=== PATIENT | female | born 1960 | race Caucasian/White ===

== ENCOUNTER 2017-11-10 15:13 | Observation (INO) | payer OTHER, SELFPAY ==
[2017-11-10] MEDS ORDERED: THIAMINE 200 MG/2 ML IM ONE (15:16)
--- NOTE | 2017-11-10 15:25 | ERPHSYRPT ---
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 They were called to a residence. Man reported he found pt on cough with altered mental status and slurred speech. She has hx of OD in past and he was concerned that was possible again. Pt does not give coherent answers. She had no response to narcan. Denies injury. Had bottle of norco filled 3 weeks ago at scene which was empty. Timing/Duration: today Allergies/Adverse Reactions: morphine Adverse Reaction (Intermediate, Verified 11/10/17 17:10) Headache iv morphine only no issues with po morphine Home Medications: Hydrocodone/APAP 5/325 [[place] 5/325 mg] 1 tab PO UD 11/06/13 [History] Venlafaxine HCl [Effexor Xr] 150 mg PO DAILY 05/17/15 [History] Aripiprazole [Abilify] 5 mg PO DAILY 08/30/16 [History] Aspirin 81 gm Chew [Baby Aspirin 81 mg Chew] 81 mg PO DAILY 08/30/16 [ History] Atorvastatin Calcium [Lipitor] 40 mg PO HS 08/30/16 [History] B-Complex with Vitamin C [B-Complex Plus Vitamin C] 1 each PO DAILY 08/30/16 [ History] Cholecalciferol (Vitamin D3) [Vitamin D3] 5,000 unit PO DAILY 08/30/16 [History] Gabapentin [Neurontin] 800 mg PO QID 08/30/16 [History] Isosorbide Mononitrate 30 mg [Imdur 30 MG] 30 mg PO DAILY 08/30/16 [History ] Meloxicam 15 mg [Meloxicam 15 MG] 15 mg PO DAILY 08/30/16 [History] Oxymorphone HCl [Oxymorphone HCl ER] 10 mg PO BID 08/30/16 [History] Omeprazole [Prilosec] 40 mg PO DAILY 08/31/16 [History] Hx Tetanus, Diphtheria Vaccination/Date Given: No Hx Influenza Vaccination/Date Given: No Hx Pneumococcal Vaccination/Date Given: No - Review of Systems Constitutional: No Fever Eyes: No Vision Changes Abdominal/Gastrointestinal: No Vomiting All Other Systems: Unable due to condition - Past Medical History Pertinent Past Medical History: Yes Neurological History: No Pertinent History ENT History: No Pertinent History Cardiac History: Other Respiratory History: COPD, Pneumonia Endocrine Medical History: No Pertinent History Musculoskeletal History: Arthritis, Degenerative Disk Disease, Fibromyalgia, Other GI Medical History: Colitis, GERD, Gallbladder Disease, Hernia, Ulcer History: No Pertinent History Psycho-Social History: Anxiety, Attention Deficit Disorder, Depression, Panic Disorder Female Reproductive Disorders: Abnormal Uterine Bleeding, Endometriosis, Fibroids Other Medical History: heart murmur, lupus - Past Surgical History Past Surgical History: Yes Neuro Surgical History: No Pertinent History Cardiac: No Pertinent History Respiratory: No Pertinent History Gastrointestinal: Cholecystectomy, Hernia Repair Genitourinary: No Pertinent History Musculoskeletal: Orthopedic Surgery Female Surgical History: Other Other Surgical History: left foot reconstructed in 2007 ,right knee arthroscopy left ovary removed, eptopic 1983, endometrial ablation 2005 - Social History Smoking Status: Current every day smoker How long have you smoked: 40 Exposure to second hand smoke: Yes Drug Use: none Patient Lives Alone: No - Nursing Vital Signs Nursing Vital Signs: Initial Vital Signs Temperature 98.3 F 11/10/17 15:14 Pulse Rate 74 11/10/17 15:14 Respiratory Rate 16 11/10/17 15:14 Blood Pressure 138/87 11/10/17 15:14 O2 Sat by Pulse Oximetry 100 11/10/17 15:14 Pain Scale Pain Intensity 0 - Physical Exam General Appearance: alert, anxiety Eye Exam: PERRL/EOMI Ears, Nose, Throat Exam: dry mucous membranes Neck Exam: normal inspection, non-tender, supple, No midline tenderness Respiratory Exam: normal breath sounds Cardiovascular Exam: regular rate/rhythm Gastrointestinal/Abdomen Exam: soft, No tenderness, No distention Back Exam: normal inspection, normal range of motion Extremity Exam: normal inspection, normal range of motion Neurologic Exam: alert, No motor deficits Skin Exam: warm, dry, No rash - Course Nursing assessment & vital signs reviewed: Yes EKG Interpreted by Me: RATE (94), Sinus Rhythm, NORMAL AXIS, prolonged QT interval (491), NORMAL ST-T - Radiology Exams cxr X-ray Interpretation: Interpreted by me (RML pneumonia) - CT Exams head CT Interpretation: Tele-radiologist Report, No/Intracranial Hemorrhag Ordered Tests: Active Orders 24 hr Category Date Time Status Accucheck STAT Care 11/10/17 15:14 Active Mortgage Processing Manager STAT Care 11/10/17 15:15 Active Cath for Specimen-Straight STAT Care 11/10/17 15:15 Active EKG-ER Only STAT Care 11/10/17 15:14 Active IV Insertion STAT Care 11/10/17 15:14 Active Oxygen-ED Only NON-REBREATHER 100% Care 11/10/17 15:40 Active CHEST 1 VIEW (PORTABLE) Stat Exams 11/10/17 15:15 Taken HEAD WITHOUT CONTRAST [CT] Stat Exams 11/10/17 15:15 Taken ACETAMINOPHEN Stat Lab 11/10/17 15:30 Completed BLOOD CULTURE Stat Lab 11/10/17 15:30 Received CBC W DIFF Stat Lab 11/10/17 15:14 Completed CMP Stat Lab 11/10/17 15:30 Completed ETHYL ALCOHOL Stat Lab 11/10/17 15:30 Completed Lactic Acid Stat Lab 11/10/17 15:19 Results MAGNESIUM Stat Lab 11/10/17 15:30 Completed PROTIME WITH INR Stat Lab 11/10/17 15:30 Completed SALICYLATE Stat Lab 11/10/17 15:30 Completed TROPONIN Q3H Lab 11/10/17 15:30 Completed TROPONIN Q3H Lab 11/10/17 18:45 Ordered TROPONIN Q3H Lab 11/10/17 21:45 Ordered TROPONIN Q3H Lab 11/11/17 00:45 Ordered TROPONIN Q3H Lab 11/11/17 04:45 Ordered UA W/ MICROSCOPIC Stat Lab 11/10/17 15:30 Completed Urine Triage Profile Stat Lab 11/10/17 15:30 Completed VENOUS BLOOD GAS Stat Lab 11/10/17 15:19 Results Medication Summary Generic Name Dose Route Start Last Admin Trade Name Freq PRN Reason Stop Dose Admin Dextrose/Lactated Ringer's 1,000 mls @ 100 mls/hr 11/10/17 15:30 11/10/17 15: 32 Dextrose 5%-Lr Iv Solution 1000 Ml IV 12/10/17 15:29 100 mls/hr .Q10H [place] Administration Discontinued Medications Generic Name Dose Route Start Last Admin Trade Name Freq PRN Reason Stop Dose Admin Thiamine HCl 100 mg 11/10/17 15:16 11/10/17 15:32 Thiamine 200 Mg/2 Ml IM 11/10/17 15:17 100 mg STAT ONE Administration Thiamine HCl Confirm 11/10/17 15:31 Thiamine 200 Mg/2 Ml Administered 11/10/17 15:32 Dose 200 mg .ROUTE .STK-MED ONE Lab/Rad Data: Laboratory Result Diagrams 11/10/17 15:14 11/10/17 15:30 Laboratory Results 11/10/17 11/10/17 11/10/17 Range/Units 15:30 15:30 15:30 WBC (4.0-10.5) K/mm3 RBC (4.1-5.4) M/mm3 Hgb (12.0-16.0) gm/dl Hct (35-47) % MCV (78-100) fl MCH (26-32) pg MCHC (32-36) g/dl RDW (11.5-14.0) % Plt Count (150-450) K/mm3 MPV (6-9.5) fl Gran % (36.0-66.0) % Lymphocytes % (24.0-44.0) % Monocytes % (0.0-12.0) % Eosinophils % (0.00-5.0) % Basophils % (0.0-0.4) % Basophils # (0-0.4) INR 0.91 (0.8-3.0) VBG pH (7.32-7.42) VBG pCO2 at Pat Temp (42-55) mm/Hg VBG pO2 at Pat Temp (25-40) mm/Hg VBG HCO3 (22-28) meq/L VBG O2 Sat ([place]) (95-100) VBG Base Excess (-2.0-2.0) VBG Hemoglobin VBG Carboxyhemoglobin (0.0-6.9) % T HGB POC Potassium (3.5-5.1) Sodium (137-145) mmol/L Potassium (3.5-5.1) mmol/L Chloride (98-107) mEq/L Carbon Dioxide (22-30) mmol/L Anion Gap (5-15) MEQ/L BUN (7-17) mg/dl Creatinine (0.52-1.04) mg/dl Estimated GFR ML/MIN Glucose (74-106) mg/dL Lactic Acid (0.4-2.0) Calcium (8.4-10.2) mg/dL Magnesium (1.6-2.3) mg/dL Total Bilirubin (0.2-1.3) mg/d? AST (14-36) U/L ALT (0-35) U/L Alkaline Phosphatase (38-126) U/L Troponin I < 0.012 (0.000-0.034) ng/ml Serum Total Protein (6.3-8.2) mg/dl Albumin (3.5-5.0) g/dl Ur Collection Type Urine Color (YELLOW) Urine Appearance (CLEAR) Urine pH (5-6) Ur Specific [place] (1.005-1.025) Urine Protein (Negative) Urine Ketones (NEGATIVE) Urine Blood (0-5) Dima/ul Urine Nitrite (NEGATIVE) Urine Bilirubin (NEGATIVE) Urine Urobilinogen (0-1) mg/dL Ur Leukocyte Esterase (NEGATIVE) Urine Microscopic RBC (0-2) /HPF Urine Bacteria (NEGATIVE) /HPF Urine Culture Reflexed (NO) Urine Glucose (NEGATIVE) mg/dL Salicylates (2-20) mg/dL Urine Opiates Level NEGATIVE (NEGATIVE) Ur Methadone NEGATIVE (NEGATIVE) Acetaminophen (10-30) ug/ml Urine Barbiturates NEGATIVE (NEGATIVE) Ur Phencyclidine (PCP) NEGATIVE (NEGATIVE) Urine Amphetamine NEGATIVE (NEGATIVE) U Benzodiazepine Level NEGATIVE (NEGATIVE) Urine Cocaine NEGATIVE (NEGATIVE) Urine Marijuana (THC) NEGATIVE (NEGATIVE) Ethyl Alcohol (0-9) MG/DL Specimen Received 11/10/17 11/10/17 11/10/17 Range/Units 15:30 15:30 15:19 WBC (4.0-10.5) K/mm3 RBC (4.1-5.4) M/mm3 Hgb (12.0-16.0) gm/dl Hct (35-47) % MCV (78-100) fl MCH (26-32) pg MCHC (32-36) g/dl RDW (11.5-14.0) % Plt Count (150-450) K/mm3 MPV (6-9.5) fl Gran % (36.0-66.0) % Lymphocytes % (24.0-44.0) % Monocytes % (0.0-12.0) % Eosinophils % (0.00-5.0) % Basophils % (0.0-0.4) % Basophils # (0-0.4) INR (0.8-3.0) VBG pH 7.42 (7.32-7.42) VBG pCO2 at Pat Temp 41 L (42-55) mm/Hg VBG pO2 at Pat Temp 30 (25-40) mm/Hg VBG HCO3 26.6 (22-28) meq/L VBG O2 Sat ([place]) 71.7 L (95-100) VBG Base Excess 1.9 (-2.0-2.0) VBG Hemoglobin 16.9 VBG Carboxyhemoglobin 17.7 H* (0.0-6.9) % T HGB POC Potassium 4.2 (3.5-5.1) Sodium 140 (137-145) mmol/L Potassium 4.2 (3.5-5.1) mmol/L Chloride 103 (98-107) mEq/L Carbon Dioxide 23 (22-30) mmol/L Anion Gap 18.6 H (5-15) MEQ/L BUN 18 H (7-17) mg/dl Creatinine 0.78 (0.52-1.04) mg/dl Estimated GFR > 60 ML/MIN Glucose 90 (74-106) mg/dL Lactic Acid 2.5 H (0.4-2.0) Calcium 9.7 (8.4-10.2) mg/dL Magnesium 2.0 (1.6-2.3) mg/dL Total Bilirubin 0.30 (0.2-1.3) mg/d? AST 25 (14-36) U/L ALT 23 (0-35) U/L Alkaline Phosphatase 104 (38-126) U/L Troponin I (0.000-0.034) ng/ml Serum Total Protein 7.6 (6.3-8.2) mg/dl Albumin 4.5 (3.5-5.0) g/dl Ur Collection Type CATH Urine Color YELLOW (YELLOW) Urine Appearance CLEAR (CLEAR) Urine pH 5.0 (5-6) Ur Specific [place] 1.005 (1.005-1.025) Urine Protein NEGATIVE (Negative) Urine Ketones NEGATIVE (NEGATIVE) Urine Blood 5-10 (0-5) Dima/ul Urine Nitrite NEGATIVE (NEGATIVE) Urine Bilirubin NEGATIVE (NEGATIVE) Urine Urobilinogen NORMAL (0-1) mg/dL Ur Leukocyte Esterase NEGATIVE (NEGATIVE) Urine Microscopic RBC 0-2 (0-2) /HPF Urine Bacteria RARE (NEGATIVE) /HPF Urine Culture Reflexed NO (NO) Urine Glucose NEGATIVE (NEGATIVE) mg/dL Salicylates < 1.0 L (2-20) mg/dL Urine Opiates Level (NEGATIVE) Ur Methadone (NEGATIVE) Acetaminophen < 10 L (10-30) ug/ml Urine Barbiturates (NEGATIVE) Ur Phencyclidine (PCP) (NEGATIVE) Urine Amphetamine (NEGATIVE) U Benzodiazepine Level (NEGATIVE) Urine Cocaine (NEGATIVE) Urine Marijuana (THC) (NEGATIVE) Ethyl Alcohol 110 H (0-9) MG/DL Specimen Received 11/10/17 1530 11/10/17 Range/Units 15:14 WBC 9.4 (4.0-10.5) K/mm3 RBC 5.28 (4.1-5.4) M/mm3 Hgb 16.5 H (12.0-16.0) gm/dl Hct 48.4 H (35-47) % MCV 91.7 (78-100) fl MCH 31.2 (26-32) pg MCHC 34.1 (32-36) g/dl RDW 14.0 (11.5-14.0) % Plt Count 280 (150-450) K/mm3 MPV 9.9 H (6-9.5) fl Gran % 49.2 (36.0-66.0) % Lymphocytes % 38.6 (24.0-44.0) % Monocytes % 10.8 (0.0-12.0) % Eosinophils % 1.0 (0.00-5.0) % Basophils % 0.4 (0.0-0.4) % Basophils # 0.04 (0-0.4) INR (0.8-3.0) VBG pH (7.32-7.42) VBG pCO2 at Pat Temp (42-55) mm/Hg VBG pO2 at Pat Temp (25-40) mm/Hg VBG HCO3 (22-28) meq/L VBG O2 Sat ([place]) (95-100) VBG Base Excess (-2.0-2.0) VBG Hemoglobin VBG Carboxyhemoglobin (0.0-6.9) % T HGB POC Potassium (3.5-5.1) Sodium (137-145) mmol/L Potassium (3.5-5.1) mmol/L Chloride (98-107) mEq/L Carbon Dioxide (22-30) mmol/L Anion Gap (5-15) MEQ/L BUN (7-17) mg/dl Creatinine (0.52-1.04) mg/dl Estimated GFR ML/MIN Glucose (74-106) mg/dL Lactic Acid (0.4-2.0) Calcium (8.4-10.2) mg/dL Magnesium (1.6-2.3) mg/dL Total Bilirubin (0.2-1.3) mg/d? AST (14-36) U/L ALT (0-35) U/L Alkaline Phosphatase (38-126) U/L Troponin I (0.000-0.034) ng/ml Serum Total Protein (6.3-8.2) mg/dl Albumin (3.5-5.0) g/dl Ur Collection Type Urine Color (YELLOW) Urine Appearance (CLEAR) Urine pH (5-6) Ur Specific [place] (1.005-1.025) Urine Protein (Negative) Urine Ketones (NEGATIVE) Urine Blood (0-5) Dima/ul Urine Nitrite (NEGATIVE) Urine Bilirubin (NEGATIVE) Urine Urobilinogen (0-1) mg/dL Ur Leukocyte Esterase (NEGATIVE) Urine Microscopic RBC (0-2) /HPF Urine Bacteria (NEGATIVE) /HPF Urine Culture Reflexed (NO) Urine Glucose (NEGATIVE) mg/dL Salicylates (2-20) mg/dL Urine Opiates Level (NEGATIVE) Ur Methadone (NEGATIVE) Acetaminophen (10-30) ug/ml Urine Barbiturates (NEGATIVE) Ur Phencyclidine (PCP) (NEGATIVE) Urine Amphetamine (NEGATIVE) U Benzodiazepine Level (NEGATIVE) Urine Cocaine (NEGATIVE) Urine Marijuana (THC) (NEGATIVE) Ethyl Alcohol (0-9) MG/DL Specimen Received - Progress Progress Note: 11/10/17 15:40 CO elevated. She smokes 2 ppd. Will give NRB O2. 11/10/17 17:18 Pt still some confused. Will send blood cultures and unasyn for aspiration pneumonia. 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 He was in the other room and she laid on couch. He checked on her and she had slurred speech so he called EMS about 30 minutes later. Discussed with : Sim (for Reuben) Will see patient in: hospital (observation) Counseled pt/family regarding: lab results, diagnosis, need for follow-up, rad results - Departure Time of Disposition: 17:20 Departure Disposition: Observation (ICU) Clinical Impression: Overdose, RML pneumonia, elevated carbon monoxide, Altered mental status Condition: Fair Critical Care Time: No Referrals: RICO ELLIS [Primary Care Provider] -
[2017-11-10] MEDS ORDERED: Dextrose 5%-Lr IV Solution 1000 ML 1,000 ML IV SCH ×2 (15:30→18:20)
[2017-11-10] MEDS ORDERED: THIAMINE 200 MG/2 ML ONE (15:31)
[2017-11-10] MEDS ORDERED: Dextrose 5%-Lr IV Solution 1000 ML 1,000 ML IV ONE (15:31)
[2017-11-10 15:33] LABS: BASOPHIL % 0.4 % (0.0-0.4); Basophil (Absolute #) 0.04 (0-0.4); Eosinophil (Absolute #) 0.09 (0-0.5); Granulocyte Absolute (ANC) 4.63 (1.4-6.9); Granulocytes % 49.2 % (36.0-66.0); Hematocrit 48.4 % (35-47); Hemoglobin 16.5 gm/dl (12.0-16.0); Lymphocyte (Absolute #) 3.64 (1.0-4.6); Lymphocytes % 38.6 % (24.0-44.0); Mean Cell Volume 91.7 fl (78-100); Mean Corpuscular Hgb Concent. 34.1 g/dl (32-36); Mean Platelet Volume 9.9 fl (6-9.5); Monocyte (Absolute #) 1.02 (0.0-1.3); Monocytes % 10.8 % (0.0-12.0); Platelet Count 280 K/mm3 (150-450); Red Blood Count 5.28 M/mm3 (4.1-5.4); White Blood Count 9.4 K/mm3 (4.0-10.5)
[2017-11-10 15:35] LABS: Lactic Acid 2.5 (0.4-2.0); VBG BASE EXCESS 1.9 (-2.0-2.0); VBG HCO3- 26.6 meq/L (22-28); VBG HEMOGLOBIN 16.9; VBG O2 SATURATION 71.7 (95-100); VBG PCO2 41 mm/Hg (42-55); VBG PO2 30 mm/Hg (25-40); VBG POTASSIUM 4.2 (3.5-5.1); VBG pH 7.42 (7.32-7.42)
[2017-11-10 15:35] LABS: Mean Corpuscular Hemoglobin 31.2 pg (26-32)
[2017-11-10 15:36] LABS: VBG CARBOXYHEMOGLOBIN 17.7 % T HGB (0.0-6.9)
[2017-11-10 15:46] LABS: Appearance CLEAR (CLEAR); Bacteria RARE /HPF (NEGATIVE); Bilirubin NEGATIVE (NEGATIVE); Glucose NEGATIVE (NEGATIVE); Ketones NEGATIVE (NEGATIVE); Leukocyte Esterase NEGATIVE (NEGATIVE); Nitrite NEGATIVE (NEGATIVE); Protein,Urine Dip NEGATIVE (Negative); Specific Gravity 1.005 (1.005-1.025); Urobilinogen NORMAL mg/dL (0-1)
[2017-11-10 15:51] LABS: Amphetamine,Urine NEGATIVE (NEGATIVE); Barbiturate,Urine NEGATIVE (NEGATIVE); Benzodiazepine,Urine NEGATIVE (NEGATIVE); Cocaine,Urine NEGATIVE (NEGATIVE); Methadone,Urine NEGATIVE (NEGATIVE); Opiate,Urine NEGATIVE (NEGATIVE); PCP,Urine NEGATIVE (NEGATIVE); THC,Urine NEGATIVE (NEGATIVE)
[2017-11-10 15:53] LABS: INR 0.91 (0.8-3.0)
[2017-11-10 15:58] LABS: ALBUMIN 4.5 g/dl (3.5-5.0); ALKALINE PHOSPHATASE 104 U/L (38-126); ANION GAP 18.6 MEQ/L (5-15); BLOOD UREA NITROGEN 18 mg/dl (7-17); CHLORIDE 103 mEq/L (98-107); Calcium 9.7 mg/dL (8.4-10.2); Carbon Dioxide 23 mmol/L (22-30); Creatinine 1 0.78 mg/dl (0.52-1.04); ETHYL ALCOHOL 110 MG/DL (0-9); Glucose 90 mg/dL (74-106); Potassium 4.2 mmol/L (3.5-5.1); SGOT/AST 25 U/L (14-36); SGPT/ALT 23 U/L (0-35); SODIUM 140 mmol/L (137-145); Total Protein 7.6 mg/dl (6.3-8.2)
[2017-11-10 16:01] LABS: ACETAMINOPHEN < 10 ug/ml (10-30); SALICYLATE < 1.0 mg/dL (2-20)
[2017-11-10] MEDS ORDERED: Unasyn 3GM / NaCl 100ML 3 GM/100 ML IVPB IV STA (17:17)
[2017-11-10] MEDS ORDERED: Unasyn 3GM / NaCl 100ML 3 GM/100 ML IVPB ONE (17:27)
[2017-11-10] MEDS ORDERED: Adacel Vial IM ONE (17:49)
[2017-11-10 19:01] LABS: VBG CARBOXYHEMOGLOBIN 8.5 % T HGB (0.0-6.9); VBG HCO3- 27.1 meq/L (22-28); VBG HEMOGLOBIN 16.9; VBG O2 SATURATION 90.5 (95-100); VBG POTASSIUM 4.2 (3.5-5.1); VBG pH 7.45 (7.32-7.42)
[2017-11-10 19:03] LABS: Lactic Acid 1.9 (0.4-2.0)
--- NOTE | 2017-11-10 19:10 | XRAY ---
Indication: Altered mental status. Multiple contiguous axial images obtained through the head without contrast. Comparison: April 03, 2008. Several images slightly degraded by motion artifact. Ventriculosulcal pattern appears symmetric. No acute intracranial hemorrhage, abnormal extra-axial fluid collection, or mass effect. Fourth ventricle is midline without hydrocephalus. Jon-white matter differentiation preserved. Bony calvarium intact. Visualized paranasal sinuses and mastoid air cells are clear. Impression: Mild motion artifact. No gross acute intracranial abnormalities. Comment: Preliminary interpretation was made by [facility]. No discrepancy. CTDI 60.26
--- NOTE | 2017-11-10 19:14 | XRAY ---
Indication: Altered mental status. Comparison: August 30, 2016. Portable chest again demonstrates right mid to lower lung infiltrate versus atelectasis. Remaining lungs clear. Heart is not enlarged for AP portable technique. Again old left clavicle fracture. Impression: Right mid to lower lung infiltrate/atelectasis. Correlate clinically.
[2017-11-10] MEDS: Unasyn 1.5GM / NaCl 100ML 1.5 GM/100 ML IVPB IV SCH (19:16)
[2017-11-10 19:37] LABS: TROPONIN < 0.012 ng/ml (0.000-0.034)
[2017-11-10] MEDS ORDERED: Nicoderm CQ 21 MG TOP SCH (20:00)
[2017-11-10 20:29] LABS: ACETAMINOPHEN < 10 ug/ml (10-30)
[2017-11-10] MEDS ORDERED: Unasyn 1.5GM Vial ONE (23:59)
[2017-11-11] MEDS: Unasyn 1.5GM / NaCl 100ML 1.5 GM/100 ML IVPB IV SCH ×2 (00:06→05:55)
[2017-11-11] MEDS ORDERED: Sodium Chloride 0.9% 100 ML IVPB 100 ML IV ONE (05:53)
[2017-11-11] MEDS ORDERED: Unasyn 1.5GM Vial ONE (05:53)
[2017-11-11 06:04] LABS: Hematocrit 47.3 % (35-47); Hemoglobin 15.6 gm/dl (12.0-16.0); Mean Cell Volume 93.7 fl (78-100); Mean Corpuscular Hemoglobin 30.9 pg (26-32); Mean Platelet Volume 10.4 fl (6-9.5); Platelet Count 278 K/mm3 (150-450); Red Blood Count 5.05 M/mm3 (4.1-5.4); Red Cell Distribution Width 14.4 % (11.5-14.0); White Blood Count 9.5 K/mm3 (4.0-10.5)
[2017-11-11 06:07] VITALS: BP 165/95
[2017-11-11 06:29] LABS: ANION GAP 13.3 MEQ/L (5-15); BLOOD UREA NITROGEN 18 mg/dl (7-17); CHLORIDE 103 mEq/L (98-107); Calcium 9.8 mg/dL (8.4-10.2); Carbon Dioxide 29 mmol/L (22-30); Creatinine 1 0.94 mg/dl (0.52-1.04); Glucose 93 mg/dL (74-106); Potassium 4.1 mmol/L (3.5-5.1); SODIUM 142 mmol/L (137-145)
--- NOTE | 2017-11-11 07:56 | PCM.SSS ---
History of Present Illness - Chief Complaint Chief Complaint: OD, AMS, rml pneumonia History of Present Illness: 57 yo female patient of Dr Ellis came to ER with altered mental status. Found to have acute alcohol intoxication, drug triage was negative in spite of her claiming to be on norco from Dr Guzman, states her morphine rx was "lost" 3 weeks ago. smokes 1 1/2 to 2ppd and had elevated carboxyhemoglobin on ABG. No cough or fever, has no complaints today. - Review of Systems Constitutional: No Fever, No Chills Respiratory: No Cough, No Short Of Breath Cardiac: No Chest Pain, No Edema, No Syncope Abdominal/Gastrointestinal: No Abdominal Pain, No Nausea, No Vomiting, No Diarrhea Skin: No Rash All Other Systems: Reviewed and Negative Medications & Allergies Home Medications: Home Medication List Venlafaxine HCl [Effexor Xr] 150 mg PO DAILY 05/17/15 [History Confirmed ] Aspirin 81 gm Chew [Baby Aspirin 81 mg Chew] 81 mg PO DAILY 08/30/16 [ History Confirmed 11/10/17] Atorvastatin Calcium [Lipitor] 20 mg PO HS 08/30/16 [History Confirmed 11/11/17] B-Complex with Vitamin C [B-Complex Plus Vitamin C] 1 each PO DAILY 08/30/16 [ History Confirmed 11/10/17] Cholecalciferol (Vitamin D3) [Vitamin D3] 5,000 unit PO DAILY 08/30/16 [History Confirmed 11/10/17] Meloxicam 15 mg [Meloxicam 15 MG] 15 mg PO DAILY 08/30/16 [History Confirmed 06/20] Omeprazole [Prilosec] 40 mg PO DAILY 08/31/16 [History Confirmed 11/10/17] Amoxicillin/Potassium Clav [Augmentin 500-125 Tablet] 1 each PO TID #21 tablet 11/11/17 [Rx] Gabapentin 800 mg PO QID 11/11/17 [History Confirmed 11/11/17] Hydrocodone/Acetaminophen [Hydrocodone-Acetamin 10-325 mg] 1 tab PO BID PRN 07/21 [History Confirmed 11/11/17] Methocarbamol 500 mg [Robaxin 500 MG] 500 mg PO BID 11/11/17 [History Confirmed 11/11/17] Morphine Sulfate Cr 15 mg [Ms Contin 15 MG] 15 mg PO BID 11/11/17 [ History Confirmed 11/11/17] Morphine Sulfate Cr 15 mg [Ms Contin 15 MG] 15 mg PO DAILY 11/11/17 [ History Confirmed 11/11/17] Allergies/Adverse Reactions: Allergies Allergy/AdvReac Type Severity Reaction Status Date / Time morphine AdvReac Intermediate Headache Verified 11/10/17 17:10 - Past Medical History Past Medical History: Yes Neurological History: No Pertinent History ENT History: No Pertinent History Cardiac History: Other Respiratory History: COPD, Pneumonia Endocrine Medical History: No Pertinent History Musculoskelatal History: Arthritis, Degenerative Disk Disease, Fibromyalgia, Other GI Medical History: Colitis, GERD, Gallbladder Disease, Hernia, Ulcer History: No Pertinent History Pyscho-Social History: Anxiety, Attention Deficit Disorder, Depression, Panic Disorder Reproductive Disorders: Abnormal Uterine Bleeding, Endometriosis, Fibroids Comment: heart murmur, lupus - Female History Are you now?: No - Past Surgical History Past Surgical History: Yes Neuro Surgical History: No Pertinent History Cardiac History: No Pertinent History Respiratory Surgery: No Pertinent History GI Surgical History: Cholecystectomy, Hernia Repair Genitourinary Surgical Hx: No Pertinent History Musculskeletal Surgical Hx: Orthopedic Surgery Female Surgical History: Other Other Surgical History: left foot reconstructed in 2007 ,right knee arthroscopy left ovary removed, eptopic 1983, endometrial ablation 2005 - Social History Smoking Status: Current every day smoker How long have you smoked: 40 Exposure to second hand smoke: Yes Alcohol: Weekly Drug Use: none - Physical Exam Vital Signs: Vital Signs - 24 hr Temp Pulse Resp BP Pulse Ox 11/11/17 06:00 99.0 F 64 17 165/95 99 11/11/17 04:00 98.6 F 63 23 139/80 99 11/11/17 01:00 98.4 F 63 17 152/82 97 11/11/17 00:01 61 11/10/17 23:07 146/79 11/10/17 22:00 98.0 F 68 13 160/89 99 11/10/17 20:30 74 20 95 11/10/17 19:58 98.2 F 72 23 144/92 93 L 11/10/17 18:27 98 F 87 20 130/94 98 11/10/17 18:20 98 03/10/18 16:50 90 20 132/96 98 11/10/17 16:16 96 H 18 143/87 95 11/10/17 15:14 98.3 F 74 16 138/87 100 Oxygen-Last 24 hours O2 Percentage 100% O2 Percentage 100% O2 Percentage 100% O2 Percentage 100% O2 Percentage 100% General Appearance: no apparent distress, alert Neurologic Exam: alert, oriented x 3, cooperative, normal mood/affect, nml cerebellar function, nml station & gait, sensation nml, No motor deficits Eye Exam: PERRL/EOMI, eyes nml inspection Respiratory Exam: normal breath sounds, lungs clear, No respiratory distress Cardiovascular Exam: regular rate/rhythm, normal heart sounds, normal peripheral pulses Gastrointestinal/Abdomen Exam: soft, normal bowel sounds, No tenderness, No mass Extremity Exam: normal inspection, normal range of motion, pelvis stable Skin Exam: normal color, warm, dry, No rash Results - Labs Lab/Micro Results: Lab Results-Last 24 Hours 11/10/17 11/10/17 11/10/17 Range/Units 18:54 18:54 18:58 WBC (4.0-10.5) K/mm3 RBC (4.1-5.4) M/mm3 Hgb (12.0-16.0) gm/dl Hct (35-47) % MCV (78-100) fl MCH (26-32) pg MCHC (32-36) g/dl RDW (11.5-14.0) % Plt Count (150-450) K/mm3 MPV (6-9.5) fl VBG pH 7.45 H (7.32-7.42) VBG pCO2 at Pat Temp 39 L (42-55) mm/Hg VBG pO2 at Pat Temp 50 H (25-40) mm/Hg VBG HCO3 27.1 (22-28) meq/L VBG O2 Sat ([place]) 90.5 L (95-100) VBG Base Excess 3.0 H (-2.0-2.0) VBG Hemoglobin 16.9 VBG Carboxyhemoglobin 8.5 H* (0.0-6.9) % T HGB POC Potassium 4.2 (3.5-5.1) Sodium (137-145) mmol/L Potassium (3.5-5.1) mmol/L Chloride (98-107) mEq/L Carbon Dioxide (22-30) mmol/L Anion Gap (5-15) MEQ/L BUN (7-17) mg/dl Creatinine (0.52-1.04) mg/dl Estimated GFR ML/MIN Glucose (74-106) mg/dL Lactic Acid 1.9 (0.4-2.0) Calcium (8.4-10.2) mg/dL Troponin I < 0.012 (0.000-0.034) ng/ml Prealbumin (17.6-36.0) mg/dL Acetaminophen < 10 L (10-30) ug/ml 11/10/17 11/10/17 11/10/17 Range/Units 19:06 21:45 21:55 WBC (4.0-10.5) K/mm3 RBC (4.1-5.4) M/mm3 Hgb (12.0-16.0) gm/dl Hct (35-47) % MCV (78-100) fl MCH (26-32) pg MCHC (32-36) g/dl RDW (11.5-14.0) % Plt Count (150-450) K/mm3 MPV (6-9.5) fl VBG pH (7.32-7.42) VBG pCO2 at Pat Temp (42-55) mm/Hg VBG pO2 at Pat Temp (25-40) mm/Hg VBG HCO3 (22-28) meq/L VBG O2 Sat ([place]) (95-100) VBG Base Excess (-2.0-2.0) VBG Hemoglobin VBG Carboxyhemoglobin (0.0-6.9) % T HGB POC Potassium (3.5-5.1) Sodium (137-145) mmol/L Potassium (3.5-5.1) mmol/L Chloride (98-107) mEq/L Carbon Dioxide (22-30) mmol/L Anion Gap (5-15) MEQ/L BUN (7-17) mg/dl Creatinine (0.52-1.04) mg/dl Estimated GFR ML/MIN Glucose (74-106) mg/dL Lactic Acid 1.0 (0.4-2.0) Calcium (8.4-10.2) mg/dL Troponin I < 0.012 (0.000-0.034) ng/ml Prealbumin 29.73 (17.6-36.0) mg/dL Acetaminophen (10-30) ug/ml 11/11/17 11/11/17 11/11/17 Range/Units 00:58 05:59 05:59 WBC 9.5 (4.0-10.5) K/mm3 RBC 5.05 (4.1-5.4) M/mm3 Hgb 15.6 (12.0-16.0) gm/dl Hct 47.3 H (35-47) % MCV 93.7 (78-100) fl MCH 30.9 (26-32) pg MCHC 33.0 (32-36) g/dl RDW 14.4 H (11.5-14.0) % Plt Count 278 (150-450) K/mm3 MPV 10.4 H (6-9.5) fl VBG pH (7.32-7.42) VBG pCO2 at Pat Temp (42-55) mm/Hg VBG pO2 at Pat Temp (25-40) mm/Hg VBG HCO3 (22-28) meq/L VBG O2 Sat ([place]) (95-100) VBG Base Excess (-2.0-2.0) VBG Hemoglobin VBG Carboxyhemoglobin (0.0-6.9) % T HGB POC Potassium (3.5-5.1) Sodium (137-145) mmol/L Potassium (3.5-5.1) mmol/L Chloride (98-107) mEq/L Carbon Dioxide (22-30) mmol/L Anion Gap (5-15) MEQ/L BUN (7-17) mg/dl Creatinine (0.52-1.04) mg/dl Estimated GFR ML/MIN Glucose (74-106) mg/dL Lactic Acid (0.4-2.0) Calcium (8.4-10.2) mg/dL Troponin I < 0.012 < 0.012 (0.000-0.034) ng/ml Prealbumin (17.6-36.0) mg/dL Acetaminophen (10-30) ug/ml 11/11/17 Range/Units 05:59 WBC (4.0-10.5) K/mm3 RBC (4.1-5.4) M/mm3 Hgb (12.0-16.0) gm/dl Hct (35-47) % MCV (78-100) fl MCH (26-32) pg MCHC (32-36) g/dl RDW (11.5-14.0) % Plt Count (150-450) K/mm3 MPV (6-9.5) fl VBG pH (7.32-7.42) VBG pCO2 at Pat Temp (42-55) mm/Hg VBG pO2 at Pat Temp (25-40) mm/Hg VBG HCO3 (22-28) meq/L VBG O2 Sat ([place]) (95-100) VBG Base Excess (-2.0-2.0) VBG Hemoglobin VBG Carboxyhemoglobin (0.0-6.9) % T HGB POC Potassium (3.5-5.1) Sodium 142 (137-145) mmol/L Potassium 4.1 (3.5-5.1) mmol/L Chloride 103 (98-107) mEq/L Carbon Dioxide 29 (22-30) mmol/L Anion Gap 13.3 (5-15) MEQ/L BUN 18 H (7-17) mg/dl Creatinine 0.94 (0.52-1.04) mg/dl Estimated GFR > 60 ML/MIN Glucose 93 (74-106) mg/dL Lactic Acid (0.4-2.0) Calcium 9.8 (8.4-10.2) mg/dL Troponin I (0.000-0.034) ng/ml Prealbumin (17.6-36.0) mg/dL Acetaminophen (10-30) ug/ml Assessment/Plan (1) Acute alcohol intoxication Current Visit: Yes Status: Acute Assessment & Plan: resolved at this time, no intent to harm herself Code(s): F10.929 - ALCOHOL USE, UNSPECIFIED WITH INTOXICATION, UNSPECIFIED (2) Altered mental status Current Visit: Yes Status: Acute Code(s): R41.82 - ALTERED MENTAL STATUS, UNSPECIFIED (3) RML pneumonia Current Visit: Yes Status: Acute Assessment & Plan: home on po augmentin, might need further workup on followup due to significant tobacco use history. Code(s): J18.1 - LOBAR PNEUMONIA, UNSPECIFIED ORGANISM Hospital Summary - Vitals & Intake/Output Vital Signs: Vital Signs Temperature 99.0 F 11/11/17 06:00 Pulse Rate 64 11/11/17 06:00 Respiratory Rate 17 11/11/17 06:00 Blood Pressure 165/95 11/11/17 06:00 O2 Sat by Pulse Oximetry 99 11/11/17 06:00 Oxygen-Last Documented O2 Percentage 100% Intake & Output: Intake & Output 11/08/17 11/09/17 11/10/17 11/11/17 11:59 11:59 11:59 12:59 Intake Total 1131 Output Total 1650 Balance -519 Weight 83 kg - Lab Result Diagrams: 11/11/17 05:59 11/11/17 05:59 Lab Results-Last 24 Hrs: Lab Results-Last 24 Hours 11/10/17 11/10/17 11/10/17 Range/Units 18:54 18:54 18:58 WBC (4.0-10.5) K/mm3 RBC (4.1-5.4) M/mm3 Hgb (12.0-16.0) gm/dl Hct (35-47) % MCV (78-100) fl MCH (26-32) pg MCHC (32-36) g/dl RDW (11.5-14.0) % Plt Count (150-450) K/mm3 MPV (6-9.5) fl VBG pH 7.45 H (7.32-7.42) VBG pCO2 at Pat Temp 39 L (42-55) mm/Hg VBG pO2 at Pat Temp 50 H (25-40) mm/Hg VBG HCO3 27.1 (22-28) meq/L VBG O2 Sat ([place]) 90.5 L (95-100) VBG Base Excess 3.0 H (-2.0-2.0) VBG Hemoglobin 16.9 VBG Carboxyhemoglobin 8.5 H* (0.0-6.9) % T HGB POC Potassium 4.2 (3.5-5.1) Sodium (137-145) mmol/L Potassium (3.5-5.1) mmol/L Chloride (98-107) mEq/L Carbon Dioxide (22-30) mmol/L Anion Gap (5-15) MEQ/L BUN (7-17) mg/dl Creatinine (0.52-1.04) mg/dl Estimated GFR ML/MIN Glucose (74-106) mg/dL Lactic Acid 1.9 (0.4-2.0) Calcium (8.4-10.2) mg/dL Troponin I < 0.012 (0.000-0.034) ng/ml Prealbumin (17.6-36.0) mg/dL Acetaminophen < 10 L (10-30) ug/ml 11/10/17 11/10/17 11/10/17 Range/Units 19:06 21:45 21:55 WBC (4.0-10.5) K/mm3 RBC (4.1-5.4) M/mm3 Hgb (12.0-16.0) gm/dl Hct (35-47) % MCV (78-100) fl MCH (26-32) pg MCHC (32-36) g/dl RDW (11.5-14.0) % Plt Count (150-450) K/mm3 MPV (6-9.5) fl VBG pH (7.32-7.42) VBG pCO2 at Pat Temp (42-55) mm/Hg VBG pO2 at Pat Temp (25-40) mm/Hg VBG HCO3 (22-28) meq/L VBG O2 Sat ([place]) (95-100) VBG Base Excess (-2.0-2.0) VBG Hemoglobin VBG Carboxyhemoglobin (0.0-6.9) % T HGB POC Potassium (3.5-5.1) Sodium (137-145) mmol/L Potassium (3.5-5.1) mmol/L Chloride (98-107) mEq/L Carbon Dioxide (22-30) mmol/L Anion Gap (5-15) MEQ/L BUN (7-17) mg/dl Creatinine (0.52-1.04) mg/dl Estimated GFR ML/MIN Glucose (74-106) mg/dL Lactic Acid 1.0 (0.4-2.0) Calcium (8.4-10.2) mg/dL Troponin I < 0.012 (0.000-0.034) ng/ml Prealbumin 29.73 (17.6-36.0) mg/dL Acetaminophen (10-30) ug/ml 11/11/17 11/11/17 11/11/17 Range/Units 00:58 05:59 05:59 WBC 9.5 (4.0-10.5) K/mm3 RBC 5.05 (4.1-5.4) M/mm3 Hgb 15.6 (12.0-16.0) gm/dl Hct 47.3 H (35-47) % MCV 93.7 (78-100) fl MCH 30.9 (26-32) pg MCHC 33.0 (32-36) g/dl RDW 14.4 H (11.5-14.0) % Plt Count 278 (150-450) K/mm3 MPV 10.4 H (6-9.5) fl VBG pH (7.32-7.42) VBG pCO2 at Pat Temp (42-55) mm/Hg VBG pO2 at Pat Temp (25-40) mm/Hg VBG HCO3 (22-28) meq/L VBG O2 Sat ([place]) (95-100) VBG Base Excess (-2.0-2.0) VBG Hemoglobin VBG Carboxyhemoglobin (0.0-6.9) % T HGB POC Potassium (3.5-5.1) Sodium (137-145) mmol/L Potassium (3.5-5.1) mmol/L Chloride (98-107) mEq/L Carbon Dioxide (22-30) mmol/L Anion Gap (5-15) MEQ/L BUN (7-17) mg/dl Creatinine (0.52-1.04) mg/dl Estimated GFR ML/MIN Glucose (74-106) mg/dL Lactic Acid (0.4-2.0) Calcium (8.4-10.2) mg/dL Troponin I < 0.012 < 0.012 (0.000-0.034) ng/ml Prealbumin (17.6-36.0) mg/dL Acetaminophen (10-30) ug/ml 11/11/17 Range/Units 05:59 WBC (4.0-10.5) K/mm3 RBC (4.1-5.4) M/mm3 Hgb (12.0-16.0) gm/dl Hct (35-47) % MCV (78-100) fl MCH (26-32) pg MCHC (32-36) g/dl RDW (11.5-14.0) % Plt Count (150-450) K/mm3 MPV (6-9.5) fl VBG pH (7.32-7.42) VBG pCO2 at Pat Temp (42-55) mm/Hg VBG pO2 at Pat Temp (25-40) mm/Hg VBG HCO3 (22-28) meq/L VBG O2 Sat ([place]) (95-100) VBG Base Excess (-2.0-2.0) VBG Hemoglobin VBG Carboxyhemoglobin (0.0-6.9) % T HGB POC Potassium (3.5-5.1) Sodium 142 (137-145) mmol/L Potassium 4.1 (3.5-5.1) mmol/L Chloride 103 (98-107) mEq/L Carbon Dioxide 29 (22-30) mmol/L Anion Gap 13.3 (5-15) MEQ/L BUN 18 H (7-17) mg/dl Creatinine 0.94 (0.52-1.04) mg/dl Estimated GFR > 60 ML/MIN Glucose 93 (74-106) mg/dL Lactic Acid (0.4-2.0) Calcium 9.8 (8.4-10.2) mg/dL Troponin I (0.000-0.034) ng/ml Prealbumin (17.6-36.0) mg/dL Acetaminophen (10-30) ug/ml - Procedures and Test Procedures and Tests throughout Hospitalization: Therapy Orders & Screens 11/10/17 18:35 Smoking Cessation Education ONCE Comment: Diagnosis: OD, AMS, rml pneumonia Smoking Status: Current every day smoker How long have you smoked: 40 Have you smoked in the past 12 months: Yes Approximately how many cigarettes per day: 10 Do you dip or chew tobacco: No - Discharge Disposition: Home, Self-Care Condition: Fair Prescriptions: New Amoxicillin/Potassium Clav [Augmentin 500-125 Tablet] 1 each PO TID #21 tablet Continue Venlafaxine HCl [Effexor Xr] 150 mg PO DAILY Meloxicam 15 mg [Meloxicam 15 MG] 15 mg PO DAILY Aspirin 81 gm Chew [Baby Aspirin 81 mg Chew] 81 mg PO DAILY Atorvastatin Calcium [Lipitor] 20 mg PO HS Cholecalciferol (Vitamin D3) [Vitamin D3] 5,000 unit PO DAILY B-Complex with Vitamin C [B-Complex Plus Vitamin C] 1 each PO DAILY Omeprazole [Prilosec] 40 mg PO DAILY Morphine Sulfate Cr 15 mg [Ms Contin 15 MG] 15 mg PO BID Hydrocodone/Acetaminophen [Hydrocodone-Acetamin 10-325 mg] 1 tab PO BID PRN PRN Reason: Pain Methocarbamol 500 mg [Robaxin 500 MG] 500 mg PO BID Morphine Sulfate Cr 15 mg [Ms Contin 15 MG] 15 mg PO DAILY Gabapentin 800 mg PO QID Follow up with: RICO ELLIS [Primary Care Provider] - 1 Week
[2017-11-11 07:58] VITALS: PULSE 67; O2SAT 92
== END 2017-11-11 09:20 | disposition home or self-care (01) ==
LOC: ED 15:13 → ICU 18:14
PROVIDERS: ADMIT Internal Medicine; ATTEND Internal Medicine
DX: F10.929 Alcohol use, unspecified with intoxication, unspecified (principal); R41.82 Altered mental status, unspecified; J18.1 Lobar pneumonia, unspecified organism; F17.200 Nicotine dependence, unspecified, uncomplicated; Z79.899 Other long term (current) drug therapy
CPT/HCPCS: 36000; 36415; 70450; 71045; 80048; 80053; 80307; 81000; 82805; 82962; 83605; 83735; 84134; 84484; 85025; 85027; 85610; 87040; 90471; 90715; 93005; 93041; 93268; 96360; 96361; 96365; 96372; 99285; G0378; G0480; G0481; J0295; P9612

== ENCOUNTER 2017-12-21 11:16 | Emergency (ER) | payer OTHER ==
--- NOTE | 2017-12-21 11:41 | ERPHSYRPT ---
- History of Present Illness Time Seen by Provider: 12/21/17 11:26 Source: patient Exam Limitations: no limitations Physician History: Pt was diagnosed with Pneumonia few weeks ago here and completed Augmentin. She developed productive cough, increasing SOB again over the past one week. She denies chest pain, but has occasional tightness, coughing up brownish phlegm, chills, but no high fever. She took Tylenol at 7 AM, had an appointment with her doctor today, went to [facility], end developed more severe dyspnea, scared her , so she drove here. She is regular smoker, has family history of CAD, and DM, had cardiac cath. last year with mild occlusions, did not require stents. Timing/Duration: week(s) Activities at Onset: none Severity of Dyspnea-Max: moderate Severity of Dyspnea-Current: moderate Possible Cause: occasional episodes Modifying Factors: Improves With: nothing Associated Symptoms: intermittent, cough, chest pain/discomfort International travel in last 2 weeks: No Allergies/Adverse Reactions: morphine Adverse Reaction (Intermediate, Verified 12/21/17 11:42) Headache iv morphine only no issues with po morphine Home Medications: Venlafaxine HCl [Effexor Xr] 150 mg PO DAILY 05/17/15 [History] Aspirin 81 gm Chew [Baby Aspirin 81 mg Chew] 81 mg PO DAILY 08/30/16 [ History] Atorvastatin Calcium [Lipitor] 20 mg PO HS 08/30/16 [History] B-Complex with Vitamin C [B-Complex Plus Vitamin C] 1 each PO DAILY 08/30/16 [ History] Cholecalciferol (Vitamin D3) [Vitamin D3] 5,000 unit PO DAILY 08/30/16 [History] Meloxicam 15 mg [Meloxicam 15 MG] 15 mg PO DAILY 08/30/16 [History] Omeprazole [Prilosec] 40 mg PO DAILY 08/31/16 [History] Gabapentin 800 mg PO QID 11/11/17 [History] Hydrocodone/Acetaminophen [Hydrocodone-Acetamin 10-325 mg] 1 tab PO BID PRN 07/21 [History] Methocarbamol 500 mg [Robaxin 500 MG] 500 mg PO BID 11/11/17 [History] Morphine Sulfate Cr 15 mg [Ms Contin 15 MG] 15 mg PO BID 11/11/17 [History ] Morphine Sulfate Cr 15 mg [Ms Contin 15 MG] 15 mg PO DAILY 11/11/17 [ History] Hx Tetanus, Diphtheria Vaccination/Date Given: No Hx Influenza Vaccination/Date Given: No Hx Pneumococcal Vaccination/Date Given: No - Review of Systems Constitutional: Chills Respiratory: Cough, Dyspnea, Dyspnea on Exertion (PERKINS) Cardiac: Chest Pain, No Edema, No Syncope All Other Systems: Reviewed and Negative - Past Medical History Pertinent Past Medical History: Yes Neurological History: No Pertinent History ENT History: No Pertinent History Cardiac History: Other Respiratory History: COPD, Pneumonia Endocrine Medical History: No Pertinent History Musculoskeletal History: Arthritis, Degenerative Disk Disease, Fibromyalgia, Other GI Medical History: Colitis, GERD, Gallbladder Disease, Hernia, Ulcer History: No Pertinent History Psycho-Social History: Anxiety, Attention Deficit Disorder, Depression, Panic Disorder Female Reproductive Disorders: Abnormal Uterine Bleeding, Endometriosis, Fibroids Other Medical History: heart murmur, lupus - Past Surgical History Past Surgical History: Yes Neuro Surgical History: No Pertinent History Cardiac: No Pertinent History Respiratory: No Pertinent History Gastrointestinal: Cholecystectomy, Hernia Repair Genitourinary: No Pertinent History Musculoskeletal: Orthopedic Surgery Female Surgical History: Other Other Surgical History: left foot reconstructed in 2007 ,right knee arthroscopy left ovary removed, eptopic 1983, endometrial ablation 2005 - Social History Smoking Status: Current every day smoker How long have you smoked: 40 Exposure to second hand smoke: Yes Drug Use: none Patient Lives Alone: No - Nursing Vital Signs Nursing Vital Signs: Initial Vital Signs Temperature 98.0 F 12/21/17 11:21 Pulse Rate 69 12/21/17 11:21 Respiratory Rate 18 12/21/17 11:21 Blood Pressure 152/87 12/21/17 11:21 O2 Sat by Pulse Oximetry 97 12/21/17 11:21 Pain Scale Pain Intensity 2 - Physical Exam General Appearance: no apparent distress Eye Exam: eyes nml inspection Ears, Nose, Throat Exam: normal ENT inspection Neck Exam: normal inspection, non-tender, supple, No carotid bruit, No JVD Respiratory Exam: normal breath sounds, lungs clear, airway intact, No chest tenderness, No respiratory distress Cardiovascular/Chest Exam: normal heart sounds, regular rate/rhythm, normal peripheral pulses, No murmur, No edema, No JVD Abdominal/Gastrointestinal Exam: soft, normal bowel sounds, No tenderness, No distention Extremity Exam: non-tender, No no calf tenderness, No no pedal edema, No teresa' s sign Peripheral Pulses Exam: dorsalis-pedis (R): 3+, dorsalis-pedis (L): 3+ Neurologic Exam: alert, oriented x 3, cooperative, normal mood/affect Skin Exam: normal color, warm, dry, No rash Lymphatic Exam: adenopathy SpO2 Interpretation: normal Oxygen Delivery: Room Air - Course Nursing assessment & vital signs reviewed: Yes EKG Interpreted by Me: RATE (67), NORMAL AXIS, NORMAL ST-T - Radiology Exams Chest X-ray Interpretation: Reviewed by me, Negative, Other (clearing of the previous right lower lobe opacity) Ordered Tests: Active Orders 24 hr Category Date Time Status Post Office Markup Clerk STAT Care 12/21/17 11:33 Active EKG-ER Only STAT Care 12/21/17 11:33 Active EKG-ER Only STAT Care 12/21/17 13:29 Active IV Insertion STAT Care 12/21/17 11:33 Active CHEST 2 VIEWS (PA AND LAT) Stat Exams 12/21/17 11:33 Completed BLOOD CULTURE Stat Lab 12/21/17 11:45 Received CBC W DIFF Stat Lab 12/21/17 11:45 Completed CK-Creatinine Phosphokinase Stat Lab 12/21/17 11:45 Completed CMP Stat Lab 12/21/17 11:45 Completed Lactic Acid Stat Lab 12/21/17 11:47 Completed NT PRO BNP Stat Lab 12/21/17 11:45 Completed PROTIME WITH INR Stat Lab 12/21/17 11:45 Completed PTT Stat Lab 12/21/17 11:45 Completed TROPONIN Q3H Lab 12/21/17 11:45 Completed TROPONIN Q3H Lab 12/21/17 14:11 Received TROPONIN Q3H Lab 12/21/17 17:45 Ordered TROPONIN Q3H Lab 12/21/17 20:45 Ordered TROPONIN Q3H Lab 12/21/17 23:45 Ordered Respiratory Nebulizer STAT RT 12/21/17 11:47 Completed Medication Summary Discontinued Medications Generic Name Dose Route Start Last Admin Trade Name Freq PRN Reason Stop Dose Admin Albuterol/Ipratropium 3 ml 12/21/17 11:47 12/21/17 11:57 Duoneb 0.5-3 Mg/3 Ml Neb IH 12/21/17 11:48 3 ml STAT ONE Administration Albuterol/Ipratropium Confirm 12/21/17 11:54 Duoneb 0.5-3 Mg/3 Ml Neb Administered 12/21/17 11:55 Dose 3 ml IH .STK-MED ONE Lab/Rad Data: Laboratory Result Diagrams 12/21/17 11:45 12/21/17 11:45 Laboratory Results 12/21/17 12/21/17 12/21/17 Range/Units 11:47 11:45 11:45 WBC (4.0-10.5) K/mm3 RBC (4.1-5.4) M/mm3 Hgb (12.0-16.0) gm/dl Hct (35-47) % MCV (78-100) fl MCH (26-32) pg MCHC (32-36) g/dl RDW (11.5-14.0) % Plt Count (150-450) K/mm3 MPV (6-9.5) fl Gran % (36.0-66.0) % Eos # (Auto) (0-0.5) Absolute Lymphs (auto) (1.0-4.6) Absolute Monos (auto) (0.0-1.3) Lymphocytes % (24.0-44.0) % Monocytes % (0.0-12.0) % Eosinophils % (0.00-5.0) % Basophils % (0.0-0.4) % Absolute Granulocytes (1.4-6.9) Basophils # (0-0.4) PT 9.7 L (9.95-12.35) SECONDS INR 0.87 (0.8-3.0) APTT 30.0 (25.3-37.0) SECONDS Sodium (137-145) mmol/L Potassium (3.5-5.1) mmol/L Chloride (98-107) mmol/L Carbon Dioxide (22-30) mmol/L Anion Gap (5-15) MEQ/L BUN (7-17) mg/dL Creatinine (0.52-1.04) mg/dL Estimated GFR ML/MIN Glucose (74-106) mg/dL Lactic Acid 0.9 (0.4-2.0) Calcium (8.4-10.2) mg/dL Total Bilirubin (0.2-1.3) mg/dL AST (14-36) U/L ALT (0-35) U/L Alkaline Phosphatase (38-126) U/L Creatine Kinase (30-135) U/L Troponin I < 0.012 (0.000-0.034) ng/mL NT-Pro-B Natriuret Pep (0-900) pg/mL Serum Total Protein (6.3-8.2) g/dL Albumin (3.5-5.0) g/dL 12/21/17 12/21/17 Range/Units 11:45 11:45 WBC 10.1 (4.0-10.5) K/mm3 RBC 5.33 (4.1-5.4) M/mm3 Hgb 16.7 H (12.0-16.0) gm/dl Hct 49.7 H (35-47) % MCV 93.2 (78-100) fl MCH 31.3 (26-32) pg MCHC 33.6 (32-36) g/dl RDW 14.2 H (11.5-14.0) % Plt Count 309 (150-450) K/mm3 MPV 10.1 H (6-9.5) fl Gran % 56.9 (36.0-66.0) % Eos # (Auto) 0.10 (0-0.5) Absolute Lymphs (auto) 3.08 (1.0-4.6) Absolute Monos (auto) 1.12 (0.0-1.3) Lymphocytes % 30.6 (24.0-44.0) % Monocytes % 11.1 (0.0-12.0) % Eosinophils % 1.0 (0.00-5.0) % Basophils % 0.4 (0.0-0.4) % Absolute Granulocytes 5.72 (1.4-6.9) Basophils # 0.04 (0-0.4) PT (9.95-12.35) SECONDS INR (0.8-3.0) APTT (25.3-37.0) SECONDS Sodium 137 (137-145) mmol/L Potassium 5.0 (3.5-5.1) mmol/L Chloride 102 (98-107) mmol/L Carbon Dioxide 28 (22-30) mmol/L Anion Gap 12.5 (5-15) MEQ/L BUN 20 H (7-17) mg/dL Creatinine 0.98 (0.52-1.04) mg/dL Estimated GFR > 60.0 ML/MIN Glucose 104 (74-106) mg/dL Lactic Acid (0.4-2.0) Calcium 10.0 (8.4-10.2) mg/dL Total Bilirubin 0.30 (0.2-1.3) mg/dL AST 18 (14-36) U/L ALT 19 (0-35) U/L Alkaline Phosphatase 117 (38-126) U/L Creatine Kinase 36 (30-135) U/L Troponin I (0.000-0.034) ng/mL NT-Pro-B Natriuret Pep 153 (0-900) pg/mL Serum Total Protein 7.6 (6.3-8.2) g/dL Albumin 4.5 (3.5-5.0) g/dL - Progress Progress: improved Air Movement: good Progress Note: 12/21/17 14:28 Pt has been afebrile, denies chest pain, stable, improved after breathing treatment. Blood Culture(s) Obtained: No Antibiotics given: No - Departure Time of Disposition: 14:29 Departure Disposition: Home Clinical Impression: Bronchitis Condition: Stable Critical Care Time: No Referrals: RICO ELLIS [Primary Care Provider] - Additional Instructions: Rest x 2-3 days, follow up with your doctor next week! Return if severe shortness of breath, chest pain, vomiting, fever> 102 F! Prescriptions: Albuterol Sulfate [Albuterol Sulfate Hfa] 8.5 gm IH Q4H PRN PRN #1 [email or web address] PRN Reason: Shortness Of Breath/Wheezing Methylprednisolone Packet [Medrol Dosepack] 4 mg PO UD #1 packet
[2017-12-21] MEDS ORDERED: DUONEB 0.5-3 MG/3 ml Neb IH ONE ×2 (11:47→11:54)
[2017-12-21 11:54] LABS: BASOPHIL % 0.4 % (0.0-0.4); Basophil (Absolute #) 0.04 (0-0.4); Granulocyte Absolute (ANC) 5.72 (1.4-6.9); Granulocytes % 56.9 % (36.0-66.0); Hematocrit 49.7 % (35-47); Hemoglobin 16.7 gm/dl (12.0-16.0); Lymphocyte (Absolute #) 3.08 (1.0-4.6); Lymphocytes % 30.6 % (24.0-44.0); Mean Cell Volume 93.2 fl (78-100); Mean Corpuscular Hemoglobin 31.3 pg (26-32); Mean Corpuscular Hgb Concent. 33.6 g/dl (32-36); Mean Platelet Volume 10.1 fl (6-9.5); Monocyte (Absolute #) 1.12 (0.0-1.3); Monocytes % 11.1 % (0.0-12.0); Platelet Count 309 K/mm3 (150-450); Red Blood Count 5.33 M/mm3 (4.1-5.4); Red Cell Distribution Width 14.2 % (11.5-14.0); White Blood Count 10.1 K/mm3 (4.0-10.5)
--- NOTE | 2017-12-21 12:05 | XRAY ---
Indication: Cough. Short of breath. Comparison: November 10, 2017. PA/lateral chest better inflated with clearing of the previous right lower lobe opacity. Minimal lingular fibrosis/scarring. Remaining heart and lungs normal.
[2017-12-21 12:16] LABS: ALBUMIN 4.5 g/dL (3.5-5.0); ALKALINE PHOSPHATASE 117 U/L (38-126); ANION GAP 12.5 MEQ/L (5-15); BLOOD UREA NITROGEN 20 mg/dL (7-17); CHLORIDE 102 mmol/L (98-107); CK-Creatinine Phosphokinase 36 U/L (30-135); Carbon Dioxide 28 mmol/L (22-30); Creatinine 1 0.98 mg/dL (0.52-1.04); Glucose 104 mg/dL (74-106); SGOT/AST 18 U/L (14-36); SGPT/ALT 19 U/L (0-35); SODIUM 137 mmol/L (137-145); Total Protein 7.6 g/dL (6.3-8.2)
[2017-12-21 12:21] LABS: INR 0.87 (0.8-3.0)
[2017-12-21 12:24] LABS: NT PRO BNP 153 pg/mL (0-900)
[2017-12-21 13:39] VITALS: BP 134/85
[2017-12-21 15:12] VITALS: PULSE 70; O2SAT 98
== END 2017-12-21 15:12 | disposition home or self-care (01) ==
LOC: ED 11:16
DX: J40 Bronchitis, not specified as acute or chronic (principal); Z79.899 Other long term (current) drug therapy; J44.9 Chronic obstructive pulmonary disease, unspecified; F41.9 Anxiety disorder, unspecified; M19.90 Unspecified osteoarthritis, unspecified site; M79.7 Fibromyalgia; K21.9 Gastro-esophageal reflux disease without esophagitis
CPT/HCPCS: 36000; 36415; 71046; 80053; 82550; 83605; 83880; 84484; 85025; 85610; 85730; 87040; 93005; 93041; 94150; 94640; 99284; A9270-GY

== ENCOUNTER 2018-11-25 10:47 | Day surgery (SDC) | payer OTHER ==
--- NOTE | 2018-11-18 09:54 | HP ---
DATE OF SURGERY: 11/18/2018 HISTORY OF PRESENT ILLNESS: The patient is a 58 year-old with recurrent drainage from her left breast she is concerned about and causing her increasing problems. The radiologist felt that she did not need a ductogram. Ultrasound did not show any obvious evidence of malignancy. She is having persistent drainage that is causing her problems and she desires duct excision left breast. PAST MEDICAL HISTORY: Heart disease, degenerative disc disease, arthritis. Heart failure in the past. PAST SURGICAL HISTORY: Hiatal hernia repair. Exploratory surgery. Gallbladder in the past. Ectopic surgery. Right knee surgery. MEDICATIONS: Effexor, Lipitor, Albuterol, methocarbamol. ALLERGIES: MORPHINE, IV CONTRAST. FAMILY HISTORY: Coronary artery disease, breast cancer. SOCIAL HISTORY: One half pack per day smoker, occasional alcohol use denies abuse. REVIEW OF SYSTEMS: Twelve systems reviewed per admission assessment. No chest pain or palpitations other systems negative or noncontributory as above and per preadmission questionnaire. PHYSICAL EXAMINATION: GENERAL: No acute distress. HEENT: Sclerae nonicteric. NECK: No JVD. CHEST: Equal excursion, nonlabored breathing. CVS: Regular rate and rhythm. ABDOMEN: Soft. No peritoneal signs. EXTREMITIES: No significant edema. NEURO: Alert, oriented, moving extremities symmetrically. No gross motor deficits noted. BREAST: Fibroglandular tissue bilaterally. No specific mass. She has recurrent drainage from the left nipple area. No palpable axillary adenopathy. There was no current drainage on office exam. She does have drainage from the left nipple area where she said she gets repeated infections. No dominant mass at this point. LAB DATA AND TESTS: Mammogram was negative. Ultrasound did not show any obvious etiology. Ultrasound was BI-RADS I. She also had a CT scan of the pelvis that was read as stable. She had minimal tiny umbilical hernia. IMPRESSION: She gets recurrent infection because of drainage and desires major duct excision. Recurrent problems with nipple drainage left nipple with repeated infection quite symptomatic and bothersome because of this options were discussed. There are no obvious malignant findings on ultrasound or mammogram. However, she is quite concerned about the repeated infections. Option of duct excision was discussed. General risk of anesthesia, deep venous thrombosis, pulmonary embolism, pneumonia, fact that she would have a scar, risk of aches, pains, burning or numbness possibly superintendent terminal or chronic in nature. She understands circumareolar incision dissecting underneath to remove the ducts in that area could result in some changes such as nipple retraction or even some nipple areolar ischemia possibly requiring other procedures as well as possibility of some chronic aches, pains, burning or numbness. She understands this. She understands the overall risk of infection possibly requiring packing, possibility she could have some other recurrent drainage down the road. She understands all the above, risk of anesthesia, deep venous thrombosis, pulmonary embolism, pneumonia but not limited to. She still prefers given her problems with recurrent drainage and repeat infections she prefers to go ahead and proceed with major duct excision left breast as an outpatient. Unless per chance that the exact drain is quite evident at the time of the surgery and could consider excising that area. She understands all the above but not limited, will proceed as an outpatient for left breast duct excision.
--- NOTE | 2018-11-25 09:05 | HP ---
DATE OF SURGERY: 11/25/2018 HISTORY OF PRESENT ILLNESS: The patient is a 58 year-old with persistent drainage from her left breast. She had an ultrasound and mammogram that did not show any suspicious malignant etiology. She is quite concerned about the risk of infection, recurrent problems with keeping herself clean. She was not a candidate for ductogram as they could not find an opening at the time of her visits with the radiologist. However, she still prefers given her problems with repeated drainage proceeding with duct excision. Otherwise, PAST MEDICAL HISTORY: Heart disease, degenerative disc disease, arthritis. PAST SURGICAL HISTORY: Cholecystectomy, hiatal hernia repairs, endoscopy in the past. Ectopic surgery in the past. Right knee surgery. MEDICATIONS: Effexor, Neurontin, Lipitor, methocarbamol, [place], Nucynta (degenerative disc disease) , low dose aspirin. ALLERGIES: MORPHINE. IVP CONTRAST. FAMILY HISTORY: Breast cancer. Heart disease. SOCIAL HISTORY: One and a half pack a day smoker, occasional alcohol use denies abuse. REVIEW OF SYSTEMS: Twelve systems reviewed pertinent for multiple medical problems as noted above. PHYSICAL EXAMINATION: GENERAL: No acute distress. HEENT: Sclerae nonicteric. NECK: No JVD. CHEST: Clear to auscultation. CVS: Regular rate and rhythm. ABDOMEN: Soft. No peritoneal signs. EXTREMITIES: No significant edema. NEURO: Alert, oriented, moving extremities symmetrically. No gross motor deficits noted. BREAST: No dominant masses. She had some recurrent intermittent left breast drainage. IMPRESSION: Recurrent nipple drainage. She has problems with recurrent infections. Ultrasound and mammogram did not show any obvious suspicious malignant area. She has history of breast cancer and she is concerned along with the recurrent infection desires duct excision, likely be major duct excision left breast as it was an isolated duct noted at the time of the surgery. She prefers to go ahead and proceed with this. She had been scheduled in the past and had canceled. Risks and benefits explained in detail including but not limited to bleeding or infection, risk of aches, pains, burning or numbness possible terminal gauger supervisor or chronic in nature, risk of wound infection possibly requiring packing. She does understand taking out the tissue behind the nipple areolar area she could have some contour changes, more nipple retraction or indentation. She understands this. She also understands small risk of nipple areolar ischemia or necrosis possibly requiring other procedures or healing by secondary intent. General risk of anesthesia, deep venous thrombosis, pulmonary embolism or pneumonia but not limited to. She understands all the above but still prefers to go ahead and proceed given her recurrent infections and recurrent left nipple drainage, will proceed with major duct excision left breast as an outpatient.
[~2018-11-25 10:47] MED LIST: CEFAZOLIN 2 GM-D5W BAG** 2 GM/50 ML ML IV ONE; Lactated Ringers 1,000 ML IV ONE; Lactated Ringers 1,000 ML IV SCH; Sensorcaine 0.25% 10 ML ONE
[2018-11-25] MEDS ORDERED: SUBLIMAZE 100 MCG/2 ML IV ONE (10:48)
[2018-11-25] MEDS ORDERED: DILAUDID 2 MG INJECTION IV ONE (10:48)
[2018-11-25] MEDS ORDERED: Zofran 4 MG/2 ML VIAL IV ONE (10:48)
[2018-11-25] MEDS ORDERED: TORAdol 30 mg Injection IV ONE (10:48)
[2018-11-25] MEDS ORDERED: Xylocaine-Mpf 2% 5 Ml Vial IJ ONE (10:48)
[2018-11-25] MEDS ORDERED: Decadron 4 MG INJ IV ONE (10:48)
[2018-11-25] MEDS ORDERED: Ephedrine Sulfate 50 MG/ML IV ONE (10:48)
[2018-11-25] MEDS ORDERED: Versed 2 MG/2 ML Injection IV ONE (10:48)
[2018-11-25] MEDS ORDERED: DIPRIVAN 200 MG/20 ML IV ONE (10:48)
[2018-11-25] MEDS ORDERED: Sensorcaine 0.25% 10 ML ONE (11:41)
[2018-11-25] MEDS ORDERED: Lactated Ringers 0 ML IV ONE (11:41)
[2018-11-25 13:37] VITALS: O2SAT 94
[2018-11-25 13:57] VITALS: BP 149/94; PULSE 86
--- NOTE | 2018-11-26 09:00 | OP ---
SURGERY DATE/TIME: 11/25/2018 1159 PREOPERATIVE DIAGNOSIS: Persistent reoccurring left breast nipple drainage and infections. POSTOPERATIVE DIAGNOSIS: Persistent reoccurring left breast nipple drainage and infections. PROCEDURE: Major duct excision left breast. SURGEON: Dr. Chris Bustos. ANESTHESIA: General. ESTIMATED BLOOD LOSS: Minimal. INDICATIONS: As noted above. Risks and benefits explained in detail and not limited to and consent obtained. Site confirmed with the patient and marked in the preoperative holding area. DESCRIPTION OF PROCEDURE AND FINDINGS: She is taken to the operating room. General anesthesia introduced. Breast prepped and draped in usual sterile fashion. After official time out and no disagreement with planned procedure, a circumareolar incision quarter of the way around the lateral aspect accomplished dissecting down the subcu and then going directly underneath the nipple taking off at the base of the nipple. There was no single identifiable duct to simply excise and it had been discussed with the patient. It was felt remove the ductal system behind here, major duct excision to avoid missing the area that is causing most of her problems and this is accomplished. Dissecting down to normal appearing breast parenchyma. The specimen is carefully excised. There were no other palpable masses. Ultrasound and mammogram did not show any other areas in the breast. The specimen is tagged with double tie at 1200, single tie at 1400. Good hemostasis noted with some pinpoint cautery. The deeper parenchyma was brought back together to fill the space with interrupted 3-0 Vicryl. Subcu closed with 3-0 Vicryl. It should be noted that the patient still has a little bit of inverted nipple which is felt to be part of her problem with recurrent infection and keeping that area clean. If she continues to have problems with keeping that crevice clean, I had discussed options whether to defer for nippleplasty versus excision of nipple if she has recurrent infections from the crease from this slight retraction as there was a little bit of creamy purulence on the outside crevice here. Subcu closed with 3-0 Vicryl. Skin closed with 4-0 Vicryl. Steri-Strips and sterile dressing applied. The patient tolerated the procedure well. There were no immediate complications. The nipple area appeared to be viable at this time. There was no family available to discuss the findings with out in the waiting area.
== END 2018-11-25 14:05 | disposition home or self-care (01) ==
LOC: SDC 10:47
PROVIDERS: ATTEND Surgery
DX: N60.92 Unspecified benign mammary dysplasia of left breast (principal); D24.2 Benign neoplasm of left breast
CPT/HCPCS: 88307; J0690; J1100; J1170; J1885; J2250; J2405; J2704; J3010

== ENCOUNTER 2019-01-01 20:05 | Observation (INO) | payer OTHER ==
[2019-01-01] MEDS ORDERED: Zofran 4 MG/2 ML VIAL IV ONE (20:10)
[2019-01-01] MEDS ORDERED: Sodium Chloride 0.9% 1000 ML 1,000 ML IV STA (20:10)
--- NOTE | 2019-01-01 20:10 | ERPHSYRPT ---
- History of Present Illness Time Seen by Provider: 01/01/19 20:07 Source: patient, EMS Exam Limitations: clinical condition Physician History: 58 y/o white female presents via ems intoxicated on her psych meds including klonopin. pt has h/o overdose in past. pt and spouse had an argument today. pt breathing on her own. now more responsive than when ems arrives. pt told ems she only took her prescribed meds as prescribed. pt denies suicide attempt/ overdose. Timing/Duration: today Severity of Symptoms-Max: moderate Severity of Symptoms-Current: moderate Context related to: significant other Suicidal thoughts: ingestion Associated Symptoms: impaired concentration, ingestion Previous symptoms: same symptoms as today Allergies/Adverse Reactions: morphine Adverse Reaction (Intermediate, Verified 01/01/19 20:07) Headache iv morphine only no issues with po morphine Home Medications: Venlafaxine HCl [Effexor Xr] 150 mg PO DAILY 05/17/15 [History] Aspirin 81 gm Chew [Baby Aspirin 81 mg Chew] 81 mg PO DAILY 08/30/16 [ History] Atorvastatin Calcium [Lipitor] 20 mg PO HS 08/30/16 [History] B-Complex with Vitamin C [B-Complex Plus Vitamin C] 1 each PO DAILY 08/30/16 [ History] Cholecalciferol (Vitamin D3) [Vitamin D3] 5,000 unit PO DAILY 08/30/16 [History] Omeprazole [Prilosec] 40 mg PO BID 08/31/16 [History] Gabapentin 800 mg PO QID 11/11/17 [History] Methocarbamol 500 mg [Robaxin 500 MG] 500 mg PO BID 11/11/17 [History] Hx Tetanus, Diphtheria Vaccination/Date Given: No Hx Influenza Vaccination/Date Given: No Hx Pneumococcal Vaccination/Date Given: No - Past Medical History Pertinent Past Medical History: Yes Neurological History: No Pertinent History ENT History: No Pertinent History Cardiac History: Other Respiratory History: COPD, Pneumonia Endocrine Medical History: No Pertinent History Musculoskeletal History: Arthritis, Degenerative Disk Disease, Fibromyalgia, Other GI Medical History: Colitis, GERD, Gallbladder Disease, Hernia, Ulcer History: No Pertinent History Psycho-Social History: Anxiety, Attention Deficit Disorder, Depression, Panic Disorder Female Reproductive Disorders: Abnormal Uterine Bleeding, Endometriosis, Fibroids Other Medical History: heart murmur, lupus - Past Surgical History Past Surgical History: Yes Neuro Surgical History: No Pertinent History Cardiac: No Pertinent History Respiratory: No Pertinent History Gastrointestinal: Cholecystectomy, Hernia Repair Genitourinary: No Pertinent History Musculoskeletal: Orthopedic Surgery Female Surgical History: Other Other Surgical History: left foot reconstructed in 2007 ,right knee arthroscopy left ovary removed, eptopic 1983, endometrial ablation 2005 - Social History Smoking Status: Current every day smoker How long have you smoked: 40 Exposure to second hand smoke: Yes Drug Use: none Patient Lives Alone: No - Review of Systems Constitutional: Lethargy Eyes: No Symptoms Ears, Nose, & Throat: No Symptoms Respiratory: No Symptoms Cardiac: No Symptoms Abdominal/Gastrointestinal: No Symptoms, No Abdominal Pain, No Nausea, No Vomiting, No Diarrhea Genitourinary Symptoms: No Symptoms Musculoskeletal: No Symptoms Skin: No Symptoms Neurological: Lethargy, Speech Changes Psychological: Depression, No Suicidal Ideations, No Homicidal Ideations Endocrine: No Symptoms Hematologic/Lymphatic: No Symptoms Immunological/Allergic: No Symptoms All Other Systems: Reviewed and Negative - Nursing Vital Signs Nursing Vital Signs: Initial Vital Signs Temperature 96.4 F 01/01/19 20:12 Pulse Rate 60 01/01/19 20:12 Respiratory Rate 18 01/01/19 20:12 Blood Pressure 88/57 01/01/19 20:12 O2 Sat by Pulse Oximetry 95 01/01/19 20:12 Pain Scale Pain Intensity 0 - Physical Exam General Appearance: lethargy, other (rousable) Neck Exam: normal inspection, non-tender, supple, full range of motion Respiratory Exam: normal breath sounds, lungs clear, airway intact, No chest tenderness, No respiratory distress Cardiovascular Exam: regular rate/rhythm, normal heart sounds, normal peripheral pulses Gastrointestinal/Abdominal Exam: soft, normal bowel sounds, No tenderness Current Suicidality: denies suicide plan Neurological Exam: calm (lethargic rouses to commands then back to sleep.) Appearance: disheveled, impaired insight Behavior/Eye Contact/Speech: intoxicated appearance Thoughts/Hallucinations: no apparent hallucination, No auditory hallucinations, No tactile hallucinations, No visual hallucinations Skin Exam: normal color, warm, dry SpO2 Interpretation: normal O2 Delivery: Room Air - Course Nursing assessment & vital signs reviewed: Yes EKG Interpreted by Me: RATE (61), Sinus Rhythm, NORMAL AXIS, NORMAL INTERVALS, NORMAL QRS, NORMAL ST-T, Other (no change vs comparison ekg dated 11/10/17) Ordered Tests: Active Orders 24 hr Category Date Time Status Cath for Specimen-Straight STAT Care 01/01/19 20:11 Active EKG-ER Only STAT Care 01/01/19 20:10 Active IV Insertion STAT Care 01/01/19 20:10 Active Psychiatric Consult STAT Cons 01/01/19 20:10 Active HEAD WITHOUT CONTRAST [CT] Stat Exams 01/01/19 20:11 Taken ACETAMINOPHEN Stat Lab 01/01/19 20:17 Completed CBC W DIFF Stat Lab 01/01/19 20:17 Completed CMP Stat Lab 01/01/19 20:17 Completed ETHYL ALCOHOL Stat Lab 01/01/19 20:17 Completed SALICYLATE Stat Lab 01/01/19 20:17 Completed UA W/RFX UR CULTURE Stat Lab 01/01/19 21:00 Completed Urine Triage Profile Stat Lab 01/01/19 21:00 Completed Transfer Order Routine Transfer 01/02/19 Ordered Medication Summary Generic Name Dose Route Start Last Admin Trade Name Freq PRN Reason Stop Dose Admin Sodium Chloride 1,000 mls @ 150 mls/hr 01/01/19 22:00 01/01/19 22:08 Sodium Chloride 0.9% 1000 Ml IV 01/31/19 21:59 150 mls/hr .Q6H40M [place] Administration Dextrose/Sodium Chloride 1,000 mls @ 125 mls/hr 01/01/19 23:30 Dextrose 5%-Ns Iv Solution 1000 Ml IV 01/31/19 23:29 .Q8H [place] Discontinued Medications Generic Name Dose Route Start Last Admin Trade Name Freq PRN Reason Stop Dose Admin Dextrose 50 ml 01/01/19 20:42 01/01/19 21:00 D50w 50 Ml Abboject IV 01/01/19 20:43 50 ml STAT ONE Administration Sodium Chloride 1,000 mls @ 999 mls/hr 01/01/19 20:10 01/01/19 20:18 Sodium Chloride 0.9% 1000 Ml IV 01/01/19 21:10 999 mls/hr .Q1H1M STA Administration Sodium Chloride Confirm 01/01/19 20:16 Sodium Chloride 0.9% 1000 Ml Administered 01/01/19 20:17 Dose 1,000 mls @ ud .ROUTE .STK-MED ONE Ondansetron HCl 4 mg 01/01/19 20:10 01/01/19 20:18 Zofran 4 Mg/2 Ml Vial IV 01/01/19 20:11 4 mg STAT ONE Administration Ondansetron HCl Confirm 01/01/19 20:15 Zofran 4 Mg/2 Ml Vial Administered 01/01/19 20:16 Dose 4 mg .ROUTE .STK-MED ONE Lab/Rad Data: Laboratory Result Diagrams 01/01/19 20:17 01/01/19 20:17 Laboratory Results 01/01/19 01/01/19 01/01/19 Range/Units 21:00 21:00 20:17 WBC (4.0-10.5) K/mm3 RBC (4.1-5.4) M/mm3 Hgb (12.0-16.0) gm/dl Hct (35-47) % MCV (78-100) fl MCH (26-32) pg MCHC (32-36) g/dl RDW (11.5-14.0) % Plt Count (150-450) K/mm3 MPV (6-9.5) fl Gran % (36.0-66.0) % Eos # (Auto) (0-0.5) Absolute Lymphs (auto) (1.0-4.6) Absolute Monos (auto) (0.0-1.3) Lymphocytes % (24.0-44.0) % Monocytes % (0.0-12.0) % Eosinophils % (0.00-5.0) % Basophils % (0.0-0.4) % Absolute Granulocytes (1.4-6.9) Basophils # (0-0.4) Sodium 139 (137-145) mmol/L Potassium 4.0 (3.5-5.1) mmol/L Chloride 106 (98-107) mmol/L Carbon Dioxide 23 (22-30) mmol/L Anion Gap 13.9 (5-15) MEQ/L BUN 17 (7-17) mg/dL Creatinine 0.92 (0.52-1.04) mg/dL Estimated GFR > 60.0 ML/MIN Glucose 65 L (74-106) mg/dL Calcium 8.9 (8.4-10.2) mg/dL Total Bilirubin 0.20 (0.2-1.3) mg/dL AST 29 (14-36) U/L ALT 25 (0-35) U/L Alkaline Phosphatase 94 (38-126) U/L Serum Total Protein 6.9 (6.3-8.2) g/dL Albumin 3.9 (3.5-5.0) g/dL Urine Color STRAW (YELLOW) Urine Appearance CLEAR (CLEAR) Urine pH 5.0 (5-6) Ur Specific [place] 1.006 (1.005-1.025) Urine Protein NEGATIVE (Negative) Urine Ketones NEGATIVE (NEGATIVE) Urine Blood SMALL (0-5) Dima/ul Urine Nitrite NEGATIVE (NEGATIVE) Urine Bilirubin NEGATIVE (NEGATIVE) Urine Urobilinogen NEGATIVE (0-1) mg/dL Ur Leukocyte Esterase NEGATIVE (NEGATIVE) Urine WBC (Auto) NONE (0-5) /HPF Urine RBC (Auto) NONE (0-2) /HPF U Epithel Cells (Auto) NONE (FEW) /HPF Urine Bacteria (Auto) NONE (NEGATIVE) /HPF Urine Mucus (Auto) SLIGHT (NEGATIVE) /HPF Urine Culture Reflexed NO (NO) Urine Glucose NEGATIVE (NEGATIVE) mg/dL Salicylates < 1.0 L (2-20) mg/dL Urine Opiates Level NEGATIVE (NEGATIVE) Ur Methadone NEGATIVE (NEGATIVE) Acetaminophen 12 (10-30) ug/ml Urine Barbiturates NEGATIVE (NEGATIVE) Ur Phencyclidine (PCP) NEGATIVE (NEGATIVE) Urine Amphetamine NEGATIVE (NEGATIVE) U Benzodiazepine Level NEGATIVE (NEGATIVE) Urine Cocaine NEGATIVE (NEGATIVE) Urine Marijuana (THC) NEGATIVE (NEGATIVE) Ethyl Alcohol 77 H (0-10) mg/dL 01/01/19 Range/Units 20:17 WBC 8.0 (4.0-10.5) K/mm3 RBC 4.70 (4.1-5.4) M/mm3 Hgb 14.9 (12.0-16.0) gm/dl Hct 45.1 (35-47) % MCV 96.0 (78-100) fl MCH 31.7 (26-32) pg MCHC 33.0 (32-36) g/dl RDW 13.9 (11.5-14.0) % Plt Count 229 (150-450) K/mm3 MPV 10.5 H (6-9.5) fl Gran % 41.9 (36.0-66.0) % Eos # (Auto) 0.03 (0-0.5) Absolute Lymphs (auto) 3.82 (1.0-4.6) Absolute Monos (auto) 0.80 (0.0-1.3) Lymphocytes % 47.5 H (24.0-44.0) % Monocytes % 10.0 (0.0-12.0) % Eosinophils % 0.4 (0.00-5.0) % Basophils % 0.2 (0.0-0.4) % Absolute Granulocytes 3.37 (1.4-6.9) Basophils # 0.02 (0-0.4) Sodium (137-145) mmol/L Potassium (3.5-5.1) mmol/L Chloride (98-107) mmol/L Carbon Dioxide (22-30) mmol/L Anion Gap (5-15) MEQ/L BUN (7-17) mg/dL Creatinine (0.52-1.04) mg/dL Estimated GFR ML/MIN Glucose (74-106) mg/dL Calcium (8.4-10.2) mg/dL Total Bilirubin (0.2-1.3) mg/dL AST (14-36) U/L ALT (0-35) U/L Alkaline Phosphatase (38-126) U/L Serum Total Protein (6.3-8.2) g/dL Albumin (3.5-5.0) g/dL Urine Color (YELLOW) Urine Appearance (CLEAR) Urine pH (5-6) Ur Specific [place] (1.005-1.025) Urine Protein (Negative) Urine Ketones (NEGATIVE) Urine Blood (0-5) Dima/ul Urine Nitrite (NEGATIVE) Urine Bilirubin (NEGATIVE) Urine Urobilinogen (0-1) mg/dL Ur Leukocyte Esterase (NEGATIVE) Urine WBC (Auto) (0-5) /HPF Urine RBC (Auto) (0-2) /HPF U Epithel Cells (Auto) (FEW) /HPF Urine Bacteria (Auto) (NEGATIVE) /HPF Urine Mucus (Auto) (NEGATIVE) /HPF Urine Culture Reflexed (NO) Urine Glucose (NEGATIVE) mg/dL Salicylates (2-20) mg/dL Urine Opiates Level (NEGATIVE) Ur Methadone (NEGATIVE) Acetaminophen (10-30) ug/ml Urine Barbiturates (NEGATIVE) Ur Phencyclidine (PCP) (NEGATIVE) Urine Amphetamine (NEGATIVE) U Benzodiazepine Level (NEGATIVE) Urine Cocaine (NEGATIVE) Urine Marijuana (THC) (NEGATIVE) Ethyl Alcohol (0-10) mg/dL - Progress Progress: improved, re-examined Progress Note: 01/01/19 20:54 additional hx provided by and he states she was consuming etoh. he is unsure of when and how many klonopin was taken today. 01/02/19 00:05 repeat examination. much more awake, alert, oriented. follows commands. states no suicide or homicide ideation. no pain. pt to undertake a telepsych evaluation 01/02/19 00:35 RNs have spoken with [facility] telepsych. since there is a potential for overdose and suicidal issues in this pt, they recommend observation for another 8 hours inpt here then telepsych eval for final disposition 01/02/19 00:37 spoke with pts pcp, dr. schroeder. i reviewed pt hx, condition, ekg lab and ct head results with her. she agrees observation then telepsych this am Counseled pt/family regarding: lab results, diagnosis, need for follow-up, rad results - Departure Departure Disposition: Observation Clinical Impression: Overdose Condition: Stable Critical Care Time: Yes Critical Care Time(excluding separately billable procedures): 30-74 minutes Referrals: RICO SCHROEDER [Primary Care Provider] -
[2019-01-01] MEDS ORDERED: Zofran 4 MG/2 ML VIAL ONE (20:15)
[2019-01-01] MEDS ORDERED: Sodium Chloride 0.9% 1000 ML 1,000 ML ONE ×2 (20:16→22:07)
[2019-01-01 20:17] LABS: BASOPHIL % 0.2 % (0.0-0.4); Basophil (Absolute #) 0.02 (0-0.4); Eosinophil % 0.4 % (0.00-5.0); Eosinophil (Absolute #) 0.03 (0-0.5); Granulocyte Absolute (ANC) 3.37 (1.4-6.9); Granulocytes % 41.9 % (36.0-66.0); Hematocrit 45.1 % (35-47); Hemoglobin 14.9 gm/dl (12.0-16.0); Lymphocyte (Absolute #) 3.82 (1.0-4.6); Lymphocytes % 47.5 % (24.0-44.0); Mean Corpuscular Hemoglobin 31.7 pg (26-32); Mean Platelet Volume 10.5 fl (6-9.5); Platelet Count 229 K/mm3 (150-450); Red Cell Distribution Width 13.9 % (11.5-14.0)
[2019-01-01 20:35] LABS: ACETAMINOPHEN 12 ug/ml (10-30); ALBUMIN 3.9 g/dL (3.5-5.0); ALKALINE PHOSPHATASE 94 U/L (38-126); ANION GAP 13.9 MEQ/L (5-15); BLOOD UREA NITROGEN 17 mg/dL (7-17); CHLORIDE 106 mmol/L (98-107); Calcium 8.9 mg/dL (8.4-10.2); Carbon Dioxide 23 mmol/L (22-30); Creatinine 1 0.92 mg/dL (0.52-1.04); ETHYL ALCOHOL 77 mg/dL (0-10); Glucose 65 mg/dL (74-106); SGOT/AST 29 U/L (14-36); SGPT/ALT 25 U/L (0-35); SODIUM 139 mmol/L (137-145); Total Protein 6.9 g/dL (6.3-8.2)
[2019-01-01 20:40] LABS: SALICYLATE < 1.0 mg/dL (2-20)
[2019-01-01] MEDS ORDERED: D50W 50 ml Abboject IV ONE (20:42)
[2019-01-01 21:18] LABS: Appearance CLEAR (CLEAR); Bilirubin NEGATIVE (NEGATIVE); Blood SMALL Ery/ul (0-5); Glucose NEGATIVE (NEGATIVE); Ketones NEGATIVE (NEGATIVE); Leukocyte Esterase NEGATIVE (NEGATIVE); Mucus SLIGHT /HPF (NEGATIVE); Nitrite NEGATIVE (NEGATIVE); Protein,Urine Dip NEGATIVE (Negative); Specific Gravity 1.006 (1.005-1.025); Urobilinogen NEGATIVE mg/dL (0-1)
[2019-01-01 21:36] LABS: Amphetamine,Urine NEGATIVE (NEGATIVE); Barbiturate,Urine NEGATIVE (NEGATIVE); Benzodiazepine,Urine NEGATIVE (NEGATIVE); Cocaine,Urine NEGATIVE (NEGATIVE); Methadone,Urine NEGATIVE (NEGATIVE); Opiate,Urine NEGATIVE (NEGATIVE); PCP,Urine NEGATIVE (NEGATIVE); THC,Urine NEGATIVE (NEGATIVE)
[2019-01-01] MEDS ORDERED: Sodium Chloride 0.9% 1000 ML 1,000 ML IV SCH (22:00)
[2019-01-01] MEDS ORDERED: Dextrose 5%-NS IV Solution 1000 ML 1,000 ML IV ONE (23:14)
[2019-01-01] MEDS ORDERED: Dextrose 5%-NS IV Solution 1000 ML 1,000 ML IV SCH (23:30)
[2019-01-02] MEDS ORDERED: Dextrose 5% -0.45 NaCl 1000 ML 1,000 ML IV SCH (01:58)
[2019-01-02] MEDS ORDERED: Zofran 4 MG/2 ML VIAL IV PRN (01:58)
[2019-01-02 06:21] LABS: BASOPHIL % 0.2 % (0.0-0.4); Basophil (Absolute #) 0.02 (0-0.4); Eosinophil % 0.2 % (0.00-5.0); Eosinophil (Absolute #) 0.02 (0-0.5); Granulocyte Absolute (ANC) 3.79 (1.4-6.9); Granulocytes % 46.6 % (36.0-66.0); Hematocrit 40.1 % (35-47); Hemoglobin 12.9 gm/dl (12.0-16.0); Lymphocyte (Absolute #) 3.44 (1.0-4.6); Lymphocytes % 42.2 % (24.0-44.0); Mean Cell Volume 97.6 fl (78-100); Mean Corpuscular Hemoglobin 31.4 pg (26-32); Mean Corpuscular Hgb Concent. 32.2 g/dl (32-36); Mean Platelet Volume 10.7 fl (6-9.5); Monocyte (Absolute #) 0.88 (0.0-1.3); Monocytes % 10.8 % (0.0-12.0); Platelet Count 234 K/mm3 (150-450); Red Blood Count 4.11 M/mm3 (4.1-5.4); Red Cell Distribution Width 13.8 % (11.5-14.0); White Blood Count 8.2 K/mm3 (4.0-10.5)
[2019-01-02 06:42] LABS: ALBUMIN 3.3 g/dL (3.5-5.0); ALKALINE PHOSPHATASE 88 U/L (38-126); ANION GAP 10.8 MEQ/L (5-15); BLOOD UREA NITROGEN 14 mg/dL (7-17); CHLORIDE 112 mmol/L (98-107); Calcium 8.3 mg/dL (8.4-10.2); Carbon Dioxide 24 mmol/L (22-30); Creatinine 1 0.76 mg/dL (0.52-1.04); Glucose 84 mg/dL (74-106); Potassium 4.5 mmol/L (3.5-5.1); SGOT/AST 23 U/L (14-36); SGPT/ALT 23 U/L (0-35); SODIUM 143 mmol/L (137-145); Total Protein 6.2 g/dL (6.3-8.2)
[2019-01-02 07:49] VITALS: BP 138/83; PULSE 69; O2SAT 92
--- NOTE | 2019-01-02 08:35 | XRAY ---
Indication: Acute mental status change. Medication overdose. Multiple contiguous axial images obtained through the head without contrast. Comparison: January 10, 2018. Ventriculosulcal pattern appears symmetric. No acute intracranial hemorrhage, abnormal extra-axial fluid collection, or mass effect. Fourth ventricle is midline without hydrocephalus. Jon-white matter differentiation preserved. Bony calvarium intact. Visualized paranasal sinuses and mastoid air cells are clear. Impression: Again negative CT head without contrast exam. CT DI 67.22
[2019-01-02] MEDS ORDERED: TYLENOL 325 MG PO PRN (09:45)
--- NOTE | 2019-01-02 10:03 | HP ---
HISTORY OF PRESENT ILLNESS: This is a 58 year-old patient of mine whom I saw in the clinic yesterday. She described having panic attacks that were not controlled with her venlafaxine. She reported that she is no longer taking the opiates and the pain management doctor was asking for Valium to have at home as needed. She in the past has refused to see a psychiatrist or to have counseling. I discussed with her yesterday that I thought a low dose of Klonopin would be better for her panic attacks and a script was written for that at 0.5 mg p.o. b.i.d. as needed. The patient was instructed that she should not be driving while taking this medication. The emergency room physician's note states that she had an argument with her and was drinking alcohol and took at least one Klonopin. The patient reports that her brought her into the emergency room but the emergency room physician's note said she was brought by EMS. The patient reported that she was drinking alcohol to celebrate getting one room done that they were remodeling at home. This morning the patient denies any suicidal ideation. She is agreeable to following up with a psychiatrist as an outpatient. I explained to her we are waiting on [facility]'s evaluation. I also discussed with the patient that in the future I will not be prescribing any benzodiazepine for her. She will need to see a psychiatrist and if they feel like she needs this medication then it can be prescribed by them as they may want to adjust her other medications. REVIEW OF SYSTEMS: She denies any chest pain or dyspnea. No abdominal pain. No vomiting. She reports a decreased appetite, a little bit of nausea. Otherwise review of systems is negative. PAST MEDICAL HISTORY: Chronic back pain which she had been seeing Dr. Gaffney for, currently off any pain medications. Patient reports history of ulcerative colitis in 2016. History of angina. She had a normal cardiac stress test October 2018. History of anxiety and panic attacks. Menopausal symptoms. PAST SURGICAL HISTORY: Taken from her outpatient chart. Cholecystectomy. Colonoscopy. Endometrial ablation. Hernia repair x3. Left foot surgery. Surgery for ectopic in 1983. Upper endoscopy with dilatation July 2018. Right knee arthroscopy for medial meniscus tear in 2016. MEDICATIONS: Please see the home medication reconciliation sheet which I have reviewed. ALLERGIES: MORPHINE. SOCIAL HISTORY: She reports she smokes and rarely uses alcohol. Denies any history of withdrawal. She lives with her significant other, Abbe. FAMILY HISTORY: Noncontributory. PHYSICAL EXAMINATION: VITAL SIGNS: Temperature current 98.3F, temperature max 98.3F, heart rate 68 to 69, respiratory rate 20, blood pressure 138/83. Oxygen saturation 92 to 94% on 2 liters nasal cannula. GENERAL: The patient is lying in bed alert and oriented and in no acute distress. She denies suicidal ideation. CVS: Her heart has a regular rate and rhythm. No murmurs, gallops or rubs. CHEST: Clear to auscultation bilaterally. ABDOMEN: Soft, nontender, nondistended with normal bowel sounds. EXTREMITIES: No clubbing, cyanosis or edema. SKIN: Warm, dry and intact. HOSPITAL COURSE: 1) ALCOHOL ABUSE: The patient was counseled that she should not be using alcohol with her medications for her mood. [facility] has been consulted. 2) POSSIBLE SUICIDAL IDEATION: [facility] has been consulted. 3) HISTORY OF ANXIETY AND PANIC ATTACKS: Will plan to continue prescribing her venlafaxine but any further benzodiazepine prescriptions would need to come from a psychiatrist.
== END 2019-01-02 11:30 | disposition home or self-care (01) ==
LOC: ED 20:05 → ICU 01-02 01:43
PROVIDERS: ADMIT Internal Medicine; ATTEND Internal Medicine
DX: F10.129 Alcohol abuse with intoxication, unspecified (principal); F17.200 Nicotine dependence, unspecified, uncomplicated; Z79.899 Other long term (current) drug therapy
CPT/HCPCS: 36000; 36415; 51702; 70450; 80053; 80307; 81001; 82962; 85025; 90791; 93005; 96360; 96361; 96374; 96375; 99285; 99291; G0378; G0481; P9612; Q3014; J2405; G0480

== ENCOUNTER 2019-01-04 18:09 | Observation (INO) | payer OTHER ==
[2019-01-04] MEDS ORDERED: Sodium Chloride 0.9% 1000 ML 1,000 ML ONE (18:17)
[2019-01-04] MEDS ORDERED: Sodium Chloride 0.9% 1000 ML 1,000 ML IV STA ×2 (18:19→19:02)
[2019-01-04] MEDS ORDERED: THIAMINE 200 MG/2 ML IV ONE (18:19)
[2019-01-04 18:25] LABS: BASOPHIL % 0.2 % (0.0-0.4); Basophil (Absolute #) 0.02 (0-0.4); Eosinophil % 0.3 % (0.00-5.0); Eosinophil (Absolute #) 0.03 (0-0.5); Granulocyte Absolute (ANC) 3.97 (1.4-6.9); Granulocytes % 41.7 % (36.0-66.0); Hematocrit 41.1 % (35-47); Hemoglobin 13.7 gm/dl (12.0-16.0); Lymphocyte (Absolute #) 4.61 (1.0-4.6); Lymphocytes % 48.5 % (24.0-44.0); Mean Cell Volume 95.8 fl (78-100); Mean Corpuscular Hemoglobin 31.9 pg (26-32); Mean Corpuscular Hgb Concent. 33.3 g/dl (32-36); Mean Platelet Volume 10.2 fl (6-9.5); Monocyte (Absolute #) 0.88 (0.0-1.3); Monocytes % 9.3 % (0.0-12.0); Platelet Count 248 K/mm3 (150-450); Red Blood Count 4.29 M/mm3 (4.1-5.4); Red Cell Distribution Width 13.5 % (11.5-14.0); White Blood Count 9.5 K/mm3 (4.0-10.5)
[2019-01-04] MEDS ORDERED: THIAMINE 200 MG/2 ML ONE (18:27)
[2019-01-04 18:36] LABS: ALBUMIN 3.9 g/dL (3.5-5.0); ALKALINE PHOSPHATASE 106 U/L (38-126); ANION GAP 16.1 MEQ/L (5-15); BLOOD UREA NITROGEN 12 mg/dL (7-17); CHLORIDE 101 mmol/L (98-107); Calcium 9.4 mg/dL (8.4-10.2); Carbon Dioxide 23 mmol/L (22-30); Creatinine 1 0.95 mg/dL (0.52-1.04); ETHYL ALCOHOL 179 mg/dL (0-10); Glucose 83 mg/dL (74-106); Potassium 3.6 mmol/L (3.5-5.1); SGOT/AST 20 U/L (14-36); SGPT/ALT 19 U/L (0-35); SODIUM 137 mmol/L (137-145); Total Protein 7.1 g/dL (6.3-8.2)
[2019-01-04 18:37] LABS: Appearance CLEAR (CLEAR); Bilirubin NEGATIVE (NEGATIVE); Blood NEGATIVE Ery/ul (0-5); Glucose NEGATIVE (NEGATIVE); Ketones NEGATIVE (NEGATIVE); Leukocyte Esterase NEGATIVE (NEGATIVE); Nitrite NEGATIVE (NEGATIVE); Protein,Urine Dip NEGATIVE (Negative); Specific Gravity 1.004 (1.005-1.025); Urobilinogen NEGATIVE mg/dL (0-1)
[2019-01-04 18:40] LABS: ACETAMINOPHEN < 10 ug/ml (10-30)
--- NOTE | 2019-01-04 18:40 | ERPHSYRPT ---
- History of Present Illness Source: patient Exam Limitations: clinical condition, intoxication Patient Subjective Stated Complaint: Pt got a knife and stated to her that she was going to kill him, pt has been drinking all day, Triage Nursing Assessment: Pt arrived by EMS unconscious, performed very hard sternum rubs and pt would barely open eyes and just told us her name, pt has been drinking alcohol all day, BP 88/59, Rectal temp 96.8, pt unresponsive most of time, has old EKG sticker markings on her body and she did state that she got out of the hospital 2 days ago, unable to give us any history Timing/Duration: today Hx Tetanus, Diphtheria Vaccination/Date Given: No Hx Influenza Vaccination/Date Given: No Hx Pneumococcal Vaccination/Date Given: No <ZEINAB BRANNON - Last Filed: 01/04/19 18:37> <MADHU GAMBOA - Last Filed: 01/04/19 19:21> - History of Present Illness Time Seen by Provider: 01/04/19 18:37 Physician History: Pt got a knife and stated to her that she was going to kill him, pt has been drinking all day, Patient is very confused in ER. (ZEINAB BRANNON) Allergies/Adverse Reactions: morphine Adverse Reaction (Intermediate, Verified 01/01/19 20:07) Headache iv morphine only no issues with po morphine Home Medications: Venlafaxine HCl [Effexor Xr] 225 mg PO DAILY 05/17/15 [History] Aspirin 81 gm Chew [Baby Aspirin 81 mg Chew] 81 mg PO DAILY 08/30/16 [ History] Atorvastatin Calcium [Lipitor] 20 mg PO HS 08/30/16 [History] Omeprazole [Prilosec] 40 mg PO BID 08/31/16 [History] Gabapentin 800 mg PO QID 11/11/17 [History] - Review of Systems All Other Systems: Unable due to condition <ZEINAB BRANNON - Last Filed: 01/04/19 18:37> - Past Medical History Pertinent Past Medical History: Yes Neurological History: No Pertinent History ENT History: No Pertinent History Cardiac History: Other Respiratory History: COPD, Pneumonia Endocrine Medical History: No Pertinent History Musculoskeletal History: Arthritis, Degenerative Disk Disease, Fibromyalgia, Other GI Medical History: Colitis, GERD, Gallbladder Disease, Hernia, Ulcer History: No Pertinent History Psycho-Social History: Anxiety, Attention Deficit Disorder, Depression, Panic Disorder Female Reproductive Disorders: Abnormal Uterine Bleeding, Endometriosis, Fibroids Other Medical History: heart murmur, lupus - Past Surgical History Past Surgical History: Yes Neuro Surgical History: No Pertinent History Cardiac: No Pertinent History Respiratory: No Pertinent History Gastrointestinal: Cholecystectomy, Hernia Repair Genitourinary: No Pertinent History Musculoskeletal: Orthopedic Surgery Female Surgical History: Other Other Surgical History: left foot reconstructed in 2007 ,right knee arthroscopy left ovary removed, ectopic 1983, endometrial ablation 2005 - Social History Smoking Status: Current every day smoker How long have you smoked: 40 Exposure to second hand smoke: Yes Drug Use: none Patient Lives Alone: No <SALUD,ZEINAB - Last Filed: 01/04/19 18:37> - Physical Exam General Appearance: moderate distress Eye Exam: PERRL/EOMI Ears, Nose, Throat Exam: normal ENT inspection Neck Exam: normal inspection Respiratory Exam: diminished breath sounds Cardiovascular Exam: regular rate/rhythm Gastrointestinal/Abdomen Exam: soft Back Exam: normal inspection Neurologic Exam: disoriented, confusion, agitation Skin Exam: dry SpO2 Interpretation: borderline oxygenation SpO2: 94 O2 Delivery: Nasal Cannula <SALUD, - Last Filed: 01/04/19 18:37> - Nursing Vital Signs Nursing Vital Signs: Initial Vital Signs Temperature 96.8 F 01/04/19 18:14 Pulse Rate 59 L 01/04/19 18:14 Respiratory Rate 16 01/04/19 18:14 Blood Pressure 84/52 01/04/19 18:14 O2 Sat by Pulse Oximetry 94 L 01/04/19 18:14 - Course Nursing assessment & vital signs reviewed: Yes EKG Interpreted by Me: Sinus Rhythm <SALUD,ZEINAB - Last Filed: 01/04/19 18:37> Ordered Tests: Active Orders 24 hr Category Date Time Status Accucheck STAT Care 01/04/19 18:19 Active Track Laborer STAT Care 01/04/19 18:20 Active EKG-ER Only STAT Care 01/04/19 18:19 Active IV Insertion STAT Care 01/04/19 18:19 Active Psychiatric Consult STAT Cons 01/04/19 18:20 Active ACETAMINOPHEN Stat Lab 01/04/19 18:21 Completed CBC W DIFF Stat Lab 01/04/19 18:21 Completed CMP Stat Lab 01/04/19 18:21 Completed CULTURE,URINE Stat Lab 01/04/19 18:24 Ordered ETHYL ALCOHOL Stat Lab 01/04/19 18:21 Completed UA W/RFX UR CULTURE Stat Lab 01/04/19 18:24 Completed Urine Triage Profile Stat Lab 01/04/19 18:24 Completed Medication Summary Generic Name Dose Route Start Last Admin Trade Name Freq PRN Reason Stop Dose Admin Sodium Chloride 1,000 mls @ 999 mls/hr 01/04/19 18:19 01/04/19 18:29 Sodium Chloride 0.9% 1000 Ml IV 01/04/19 19:19 999 mls/hr .Q1H1M STA Administration Sodium Chloride 1,000 mls @ 999 mls/hr 01/04/19 19:02 Sodium Chloride 0.9% 1000 Ml IV 01/04/19 20:02 .Q1H1M STA Discontinued Medications Generic Name Dose Route Start Last Admin Trade Name Freq PRN Reason Stop Dose Admin Sodium Chloride Confirm 01/04/19 18:17 Sodium Chloride 0.9% 1000 Ml Administered 01/04/19 18:18 Dose 1,000 mls @ ud .ROUTE .STK-MED ONE Thiamine HCl 100 mg 01/04/19 18:19 01/04/19 18:29 Thiamine 200 Mg/2 Ml IV 01/04/19 18:20 200 mg STAT ONE Administration Thiamine HCl Confirm 01/04/19 18:27 Thiamine 200 Mg/2 Ml Administered 01/04/19 18:28 Dose 200 mg .ROUTE .STK-MED ONE Lab/Rad Data: Laboratory Result Diagrams 01/04/19 18:21 01/04/19 18:21 Laboratory Results 01/04/19 01/04/19 01/04/19 Range/Units 18:24 18:24 18:21 WBC (4.0-10.5) K/mm3 RBC (4.1-5.4) M/mm3 Hgb (12.0-16.0) gm/dl Hct (35-47) % MCV (78-100) fl MCH (26-32) pg MCHC (32-36) g/dl RDW (11.5-14.0) % Plt Count (150-450) K/mm3 MPV (6-9.5) fl Gran % (36.0-66.0) % Eos # (Auto) (0-0.5) Absolute Lymphs (auto) (1.0-4.6) Absolute Monos (auto) (0.0-1.3) Lymphocytes % (24.0-44.0) % Monocytes % (0.0-12.0) % Eosinophils % (0.00-5.0) % Basophils % (0.0-0.4) % Absolute Granulocytes (1.4-6.9) Basophils # (0-0.4) Sodium 137 (137-145) mmol/L Potassium 3.6 (3.5-5.1) mmol/L Chloride 101 (98-107) mmol/L Carbon Dioxide 23 (22-30) mmol/L Anion Gap 16.1 H (5-15) MEQ/L BUN 12 (7-17) mg/dL Creatinine 0.95 (0.52-1.04) mg/dL Estimated GFR > 60.0 ML/MIN Glucose 83 (74-106) mg/dL Calcium 9.4 (8.4-10.2) mg/dL Total Bilirubin 0.20 (0.2-1.3) mg/dL AST 20 (14-36) U/L ALT 19 (0-35) U/L Alkaline Phosphatase 106 (38-126) U/L Serum Total Protein 7.1 (6.3-8.2) g/dL Albumin 3.9 (3.5-5.0) g/dL Urine Color STRAW (YELLOW) Urine Appearance CLEAR (CLEAR) Urine pH 6.0 (5-6) Ur Specific [place] 1.004 (1.005-1.025) Urine Protein NEGATIVE (Negative) Urine Ketones NEGATIVE (NEGATIVE) Urine Blood NEGATIVE (0-5) Dima/ul Urine Nitrite NEGATIVE (NEGATIVE) Urine Bilirubin NEGATIVE (NEGATIVE) Urine Urobilinogen NEGATIVE (0-1) mg/dL Ur Leukocyte Esterase NEGATIVE (NEGATIVE) Urine WBC (Auto) NONE (0-5) /HPF Urine RBC (Auto) NONE (0-2) /HPF U Epithel Cells (Auto) NONE (FEW) /HPF Urine Bacteria (Auto) NONE SEEN (NEGATIVE) /HPF Urine Culture Reflexed NO (NO) Urine Glucose NEGATIVE (NEGATIVE) mg/dL Urine Opiates Level NEGATIVE (NEGATIVE) Ur Methadone NEGATIVE (NEGATIVE) Acetaminophen < 10 L (10-30) ug/ml Urine Barbiturates NEGATIVE (NEGATIVE) Ur Phencyclidine (PCP) NEGATIVE (NEGATIVE) Urine Amphetamine NEGATIVE (NEGATIVE) U Benzodiazepine Level NEGATIVE (NEGATIVE) Urine Cocaine NEGATIVE (NEGATIVE) Urine Marijuana (THC) NEGATIVE (NEGATIVE) Ethyl Alcohol 179 H (0-10) mg/dL 01/04/19 Range/Units 18:21 WBC 9.5 (4.0-10.5) K/mm3 RBC 4.29 (4.1-5.4) M/mm3 Hgb 13.7 (12.0-16.0) gm/dl Hct 41.1 (35-47) % MCV 95.8 (78-100) fl MCH 31.9 (26-32) pg MCHC 33.3 (32-36) g/dl RDW 13.5 (11.5-14.0) % Plt Count 248 (150-450) K/mm3 MPV 10.2 H (6-9.5) fl Gran % 41.7 (36.0-66.0) % Eos # (Auto) 0.03 (0-0.5) Absolute Lymphs (auto) 4.61 H (1.0-4.6) Absolute Monos (auto) 0.88 (0.0-1.3) Lymphocytes % 48.5 H (24.0-44.0) % Monocytes % 9.3 (0.0-12.0) % Eosinophils % 0.3 (0.00-5.0) % Basophils % 0.2 (0.0-0.4) % Absolute Granulocytes 3.97 (1.4-6.9) Basophils # 0.02 (0-0.4) Sodium (137-145) mmol/L Potassium (3.5-5.1) mmol/L Chloride (98-107) mmol/L Carbon Dioxide (22-30) mmol/L Anion Gap (5-15) MEQ/L BUN (7-17) mg/dL Creatinine (0.52-1.04) mg/dL Estimated GFR ML/MIN Glucose (74-106) mg/dL Calcium (8.4-10.2) mg/dL Total Bilirubin (0.2-1.3) mg/dL AST (14-36) U/L ALT (0-35) U/L Alkaline Phosphatase (38-126) U/L Serum Total Protein (6.3-8.2) g/dL Albumin (3.5-5.0) g/dL Urine Color (YELLOW) Urine Appearance (CLEAR) Urine pH (5-6) Ur Specific [place] (1.005-1.025) Urine Protein (Negative) Urine Ketones (NEGATIVE) Urine Blood (0-5) Dima/ul Urine Nitrite (NEGATIVE) Urine Bilirubin (NEGATIVE) Urine Urobilinogen (0-1) mg/dL Ur Leukocyte Esterase (NEGATIVE) Urine WBC (Auto) (0-5) /HPF Urine RBC (Auto) (0-2) /HPF U Epithel Cells (Auto) (FEW) /HPF Urine Bacteria (Auto) (NEGATIVE) /HPF Urine Culture Reflexed (NO) Urine Glucose (NEGATIVE) mg/dL Urine Opiates Level (NEGATIVE) Ur Methadone (NEGATIVE) Acetaminophen (10-30) ug/ml Urine Barbiturates (NEGATIVE) Ur Phencyclidine (PCP) (NEGATIVE) Urine Amphetamine (NEGATIVE) U Benzodiazepine Level (NEGATIVE) Urine Cocaine (NEGATIVE) Urine Marijuana (THC) (NEGATIVE) Ethyl Alcohol (0-10) mg/dL <ZEINAB BRANNON - Last Filed: 01/04/19 18:37> - Progress Progress: improved <MADHU GAMBOA - Last Filed: 01/04/19 19:21> - Progress Progress Note: 01/04/19 19:14 This is a 58-year-old white female brought by medics patient is brought by EMS apparently unconscious when they bring her she apparently was quite sleepy patient apparently had of been an argument with her she apparently had been drinking she apparently got a knife and told her that she was going to kill him She was initially seen by Dr. Brannon. Patient was noted to have a blood alcohol level of 179 patient with a blood pressure of 84/52 on arrival patient had received 1 L of normal saline and thiamine currently blood pressure 96/56. Patient is quite somnolent she does state that she became angry and wanted to harm her . Past medical history includes COPD, pneumonia, arthritis, degenerative disc disease, fibromyalgia, colitis, GERD, gallbladder disease, hernia, ulcers, anxiety, attention deficit disorder, depression, panic disorder, abnormal uterine bleeding, endometriosis, fibroids, heart murmur, lupus Past surgical history includes cholecystectomy, hernia repair, orthopedic surgery, left foot reconstruction, right knee arthroscopically, left ovary removed, ectopic in 1983, endometrial ablation in 2005 Social history positive for tobacco use Physical examination well-developed well-nourished white female she is somnolent she does answer questions well she does state that she wanted to kill her Head is atraumatic normocephalic. Eyes PERRLA EOMI fundi are unremarkable. Ears TM is merlos and intact bilaterally. Nose is clear. Throat is clear. Neck is supple full range of motion. Lungs are clear. Heart regular rate and rhythm without murmur. Abdomen soft nontender nondistended positive bowel sounds. Extremities full range of motion pulse equal and symmetrical 2 over 4 Neuro patient is somnolent but arouses easily, cranial nerves II through XII are intact full range of motion to all extremities no facial droop speech is normal sensation intact to all extremities. EKG sinus rhythm, 60 bpm, normal axis, no acute ST or T wave changes, normal EKG. Patient's labs blood alcohol 179 sodium 137 potassium 3.6 chloride 101 bicarbonate 23 BUN 12 creatinine 0.95 glucose 83 CBC White blood cell 9.5 hemoglobin 13.7 hematocrit 41.1 platelets 241 Urine drug screen is negative urinalysis essentially normal Impression 1 alcohol intoxication 2. Homicidal ideation Plan patient states she still wishes to kill her she however is very intoxicated patient does need a [facility] consult however she is not awake or alert enough to get this completed at this time. I've discussed the case with Dr. carter who is travel occupational therapist for Dr. ellis. Will place patient on ICU observation. Patient is receiving the second of 2 L of normal saline Will then change her to IV normal saline at 100 mL per hour. Patient has already received thiamine 100 mg IV. Will have patient continue to receive thiamine 100 mg by mouth or IV daily. Patient will need a [facility] consult. (MADHU GAMBOA) <ZEINAB BRANNON - Last Filed: 01/04/19 18:37> - Departure Departure Disposition: Observation Critical Care Time: No <MADHU GAMBOA - Last Filed: 01/04/19 19:21> - Departure Clinical Impression: Homicidal ideation Alcohol intoxication Qualifiers: Complication of substance-induced condition: uncomplicated Qualified Code(s): F10.920 - Alcohol use, unspecified with intoxication, uncomplicated Condition: Fair Referrals: RIOC ELLIS [Primary Care Provider] -
[2019-01-04 18:48] LABS: Bacteria NONE SEEN /HPF (NEGATIVE)
[2019-01-04 18:51] LABS: Amphetamine,Urine NEGATIVE (NEGATIVE); Barbiturate,Urine NEGATIVE (NEGATIVE); Benzodiazepine,Urine NEGATIVE (NEGATIVE); Cocaine,Urine NEGATIVE (NEGATIVE); Methadone,Urine NEGATIVE (NEGATIVE); Opiate,Urine NEGATIVE (NEGATIVE); PCP,Urine NEGATIVE (NEGATIVE); THC,Urine NEGATIVE (NEGATIVE)
[2019-01-04] MEDS ORDERED: Ativan 2 MG/1 ML VIAL IV PRN (20:08)
[2019-01-04] MEDS ORDERED: Sodium Chloride 0.9% 1000 ML 1,000 ML IV SCH (20:08)
[2019-01-05] MEDS ORDERED: Dextrose 5%-NS IV Solution 1000 ML 1,000 ML IV SCH (02:00)
[2019-01-05 06:04] LABS: BASOPHIL % 0.1 % (0.0-0.4); Basophil (Absolute #) 0.01 (0-0.4); Eosinophil % 0.4 % (0.00-5.0); Eosinophil (Absolute #) 0.03 (0-0.5); Granulocyte Absolute (ANC) 3.22 (1.4-6.9); Granulocytes % 47.9 % (36.0-66.0); Hematocrit 41.7 % (35-47); Hemoglobin 13.9 gm/dl (12.0-16.0); Lymphocyte (Absolute #) 2.78 (1.0-4.6); Lymphocytes % 41.3 % (24.0-44.0); Mean Cell Volume 95.9 fl (78-100); Mean Corpuscular Hgb Concent. 33.3 g/dl (32-36); Mean Platelet Volume 10.4 fl (6-9.5); Monocyte (Absolute #) 0.69 (0.0-1.3); Monocytes % 10.3 % (0.0-12.0); Platelet Count 253 K/mm3 (150-450); Red Blood Count 4.35 M/mm3 (4.1-5.4); Red Cell Distribution Width 13.6 % (11.5-14.0); White Blood Count 6.7 K/mm3 (4.0-10.5)
[2019-01-05 06:19] LABS: ALBUMIN 3.5 g/dL (3.5-5.0); ALKALINE PHOSPHATASE 102 U/L (38-126); ANION GAP 11.1 MEQ/L (5-15); BLOOD UREA NITROGEN 12 mg/dL (7-17); CHLORIDE 112 mmol/L (98-107); Calcium 8.9 mg/dL (8.4-10.2); Carbon Dioxide 24 mmol/L (22-30); Creatinine 1 0.83 mg/dL (0.52-1.04); ETHYL ALCOHOL < 10 mg/dL (0-10); Glucose 73 mg/dL (74-106); Potassium 4.4 mmol/L (3.5-5.1); SGOT/AST 17 U/L (14-36); SGPT/ALT 17 U/L (0-35); SODIUM 143 mmol/L (137-145); Total Protein 6.6 g/dL (6.3-8.2)
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
--- NOTE | 2019-01-05 16:46 | PCM.DCORD ---
- Discharge Disposition: Home, Self-Care Condition: Fair Prescriptions: Continue Venlafaxine HCl [Effexor Xr] 225 mg PO DAILY Aspirin 81 gm Chew [Baby Aspirin 81 mg Chew] 81 mg PO DAILY Atorvastatin Calcium [Lipitor] 20 mg PO HS Gabapentin 800 mg PO QID Albuterol Sulfate [Albuterol Sulfate Hfa] 8.5 gm IH Q4H PRN PRN #1 [email or web address] PRN Reason: Shortness Of Breath/Wheezing Omeprazole 20 mg PO BID Methocarbamol 500 mg [Robaxin 500 MG] 500 mg PO DAILY Metoprolol Succinate 25 mg Xl* [Toprol-Xl 25MG Tablets] 12.5 mg PO BID Discontinued Hydrocodone Bit/Acetaminophen [Hydrocodon-Acetaminophen 5-325] 1 tab PO TID PRN PRN Reason: Pain Follow up with: RICO ELLIS [Primary Care Provider] - 1 Week
[2019-01-05 16:53] VITALS: BP 143/76; PULSE 62; O2SAT 96
[2019-01-05] MEDS ORDERED: Effexor XR 75 MG ONE (18:02)
[2019-01-05] MEDS ORDERED: Toprol-Xl 25MG Tablets ONE (18:02)
[2019-01-05] MEDS ORDERED: Protonix 40MG Tablet ONE (18:02)
[2019-01-05] MEDS ORDERED: TYLENOL 325 MG ONE (18:02)
[2019-01-05] MEDS ORDERED: Neurontin 400 MG ONE (18:03)
[2019-01-05] MEDS ORDERED: TYLENOL 325 MG PO PRN (18:14)
[2019-01-05] MEDS ORDERED: Toprol-Xl 25MG Tablets PO ONE (18:20)
[2019-01-05] MEDS ORDERED: Neurontin 400 MG PO ONE ×2 (18:20)
[2019-01-05] MEDS ORDERED: Effexor XR 75 MG PO ONE (18:20)
[2019-01-05] MEDS ORDERED: Protonix 40MG Tablet PO ONE (18:20)
[2019-01-06] MEDS ORDERED: Toprol-Xl 25MG Tablets PO ONE (18:00)
[2019-01-06] MEDS ORDERED: Protonix 40MG Tablet PO ONE (18:00)
[2019-01-06] MEDS ORDERED: Effexor XR 75 MG PO ONE (18:00)
== END 2019-01-05 18:30 | disposition home or self-care (01) ==
LOC: ED 18:09 → ICU 20:03
PROVIDERS: ADMIT Internal Medicine; ATTEND Internal Medicine
DX: F10.929 Alcohol use, unspecified with intoxication, unspecified (principal); R45.850 Homicidal ideations; Z79.899 Other long term (current) drug therapy; J44.9 Chronic obstructive pulmonary disease, unspecified; F17.200 Nicotine dependence, unspecified, uncomplicated
CPT/HCPCS: 36000; 36415; 80053; 80307; 81001; 82962; 83036; 85025; 87086; 90791; 93005; 93041; 93268; 96360; 96374; 99285; G0378; G0481; Q3014; A9270-GY; G0480

== ENCOUNTER 2019-06-13 16:03 | Observation (INO) | payer OTHER ==
--- NOTE | 2019-06-13 16:21 | ERPHSYRPT ---
- History of Present Illness Time Seen by Provider: 06/13/19 16:05 Source: patient, police Exam Limitations: no limitations Physician History: Patient brought into the emergency department due to threatening to harm herself and having a past history of suicidal ideation in front of law enforcement Timing/Duration: today Severity of Symptoms-Max: moderate Severity of Symptoms-Current: mild Context related to: significant other, living circumstances Suicidal thoughts: gesture Associated Symptoms: angry, agitated, frustrated, suicidal ideation, No anxiety , No confused, No depressed, No hallucinating, No injury, No paranoid Previous symptoms: same symptoms as today, no recent treatment Allergies/Adverse Reactions: morphine Adverse Reaction (Intermediate, Verified 06/13/19 16:25) Headache iv morphine only no issues with po morphine Home Medications: Venlafaxine HCl [Effexor Xr] 225 mg PO DAILY 05/17/15 [History] Aspirin 81 gm Chew [Baby Aspirin 81 mg Chew] 81 mg PO DAILY 08/30/16 [ History] Atorvastatin Calcium [Lipitor] 20 mg PO HS 08/30/16 [History] Gabapentin 800 mg PO QID 11/11/17 [History] Methocarbamol 500 mg [Robaxin 500 MG] 500 mg PO BID 01/04/19 [History] Metoprolol Succinate 25 mg Xl* [Toprol-Xl 25MG Tablets] 12.5 mg PO BID [History] Omeprazole 20 mg PO BID 01/04/19 [History] Trazodone HCl 50 mg [Desyrel 50 mg] 50 mg PO HS 06/13/19 [History] Hx Tetanus, Diphtheria Vaccination/Date Given: No Hx Influenza Vaccination/Date Given: No Hx Pneumococcal Vaccination/Date Given: No - Past Medical History Pertinent Past Medical History: Yes Neurological History: No Pertinent History ENT History: No Pertinent History Cardiac History: Other Respiratory History: COPD, Pneumonia Endocrine Medical History: No Pertinent History Musculoskeletal History: Arthritis, Degenerative Disk Disease, Fibromyalgia, Other GI Medical History: Colitis, GERD, Gallbladder Disease, Hernia, Ulcer History: No Pertinent History Psycho-Social History: Anxiety, Attention Deficit Disorder, Depression, Panic Disorder Female Reproductive Disorders: Abnormal Uterine Bleeding, Endometriosis, Fibroids Other Medical History: heart murmur, lupus - Past Surgical History Past Surgical History: Yes Neuro Surgical History: No Pertinent History Cardiac: No Pertinent History Respiratory: No Pertinent History Gastrointestinal: Cholecystectomy, Hernia Repair Genitourinary: No Pertinent History Musculoskeletal: Orthopedic Surgery Female Surgical History: Other Other Surgical History: left foot reconstructed in 2007 ,right knee arthroscopy left ovary removed, ectopic 1983, endometrial ablation 2005 - Social History Smoking Status: Current every day smoker How long have you smoked: 40 Exposure to second hand smoke: Yes Drug Use: none Patient Lives Alone: No - Review of Systems Constitutional: No Fever, No Chills, No Fatigue Eyes: No Discharge, No Eye Pain, No Vision Changes Ears, Nose, & Throat: No Nose Congestion, No Epistaxis, No Mouth Pain, No Hoarse , No Painful Swallowing Respiratory: No Cough, No Dyspnea Cardiac: No Chest Pain, No Palpitations, No Syncope Abdominal/Gastrointestinal: No Abdominal Pain, No Nausea, No Vomiting Genitourinary Symptoms: No Dysuria, No Frequency, No Hematuria, No Flank Pain Musculoskeletal: No Back Pain, No Neck Pain Skin: No Pruritis, No Rash Neurological: No Dizziness, No Focal Weakness, No Paralysis, No Parasthesia Psychological: Alcohol Abuse, Anxiety, Suicidal Ideations, Emotional Lability, No Drug Abuse, No Homicidal Ideations, No Hallucinations, No Memory Loss Endocrine: No Polyuria, No Excessive Sweating, No Other Hematologic/Lymphatic: No Easy Bleeding, No Easy Bruising All Other Systems: Reviewed and Negative - Nursing Vital Signs Nursing Vital Signs: Initial Vital Signs Temperature 97.9 F 06/13/19 16:06 Pulse Rate 68 06/13/19 16:06 Blood Pressure 102/52 06/13/19 16:06 O2 Sat by Pulse Oximetry 97 06/13/19 16:06 Pain Scale Pain Intensity 0 - Physical Exam General Appearance: no apparent distress Eyes, Ears, Nose, Throat Exam: normal ENT inspection, TMs normal, pharynx normal , moist mucous membranes Neck Exam: normal inspection, non-tender, supple, full range of motion, No meningismus, No limited range of motion, No lymphadenopathy (R), No tenderness lateral Respiratory Exam: normal breath sounds, lungs clear, airway intact, No chest tenderness, No respiratory distress, No diminished breath sounds, No accessory muscle use, No prolonged expirations, No crackles/rales, No rhonchi, No wheezing , No stridor Cardiovascular Exam: regular rate/rhythm, normal heart sounds, normal peripheral pulses, capillary refill <2 sec, No murmur, No friction rub Gastrointestinal/Abdominal Exam: soft, normal bowel sounds, No tenderness, No distention, No mass, No guarding, No pulsatile mass, No rebound Extremities Exam: normal inspection, normal range of motion, No evidence of injury, No edema, No tenderness, No limited range of motion Neurological Exam: alert, yeast pusher II-XII nml as tested, oriented x 3 Appearance: appropriate appearance, denies illness Behavior/Eye Contact/Speech: good eye contact, normal speech, refused to answer Thoughts/Hallucinations: no apparent hallucination, No delusions, No incoherent Skin Exam: normal color, warm, dry, rash, No cyanosis SpO2 Interpretation: normal O2 Delivery: Room Air - Course Nursing assessment & vital signs reviewed: Yes EKG Interpreted by Me: RATE (60), Sinus Rhythm, NORMAL AXIS, NORMAL INTERVALS, NORMAL QRS, NORMAL ST-T Ordered Tests: Active Orders 24 hr Category Date Time Status EKG-ER Only STAT Care 06/13/19 16:21 Active ACETAMINOPHEN Stat Lab 06/13/19 16:30 Completed CBC W DIFF Stat Lab 06/13/19 16:30 Completed CMP Stat Lab 06/13/19 16:30 Completed ETHYL ALCOHOL Stat Lab 06/13/19 16:30 Completed MAGNESIUM Stat Lab 06/13/19 16:30 Completed SALICYLATE Stat Lab 06/13/19 16:30 Completed TSH [TSH, 3RD Generation] Stat Lab 06/13/19 16:30 Completed UA W/RFX UR CULTURE Stat Lab 06/13/19 17:21 Completed Urine Triage Profile Stat Lab 06/13/19 17:21 Completed Lab/Rad Data: Laboratory Result Diagrams 06/13/19 16:30 06/13/19 16:30 Laboratory Results 06/13/19 06/13/19 06/13/19 Range/Units 17:21 17:21 16:30 WBC (4.0-10.5) K/mm3 RBC (4.1-5.4) M/mm3 Hgb (12.0-16.0) gm/dl Hct (35-47) % MCV (78-100) fl MCH (26-32) pg MCHC (32-36) g/dl RDW (11.5-14.0) % Plt Count (150-450) K/mm3 MPV (6-9.5) fl Gran % (36.0-66.0) % Eos # (Auto) (0-0.5) Absolute Lymphs (auto) (1.0-4.6) Absolute Monos (auto) (0.0-1.3) Lymphocytes % (24.0-44.0) % Monocytes % (0.0-12.0) % Eosinophils % (0.00-5.0) % Basophils % (0.0-0.4) % Absolute Granulocytes (1.4-6.9) Basophils # (0-0.4) Sodium (137-145) mmol/L Potassium (3.5-5.1) mmol/L Chloride (98-107) mmol/L Carbon Dioxide (22-30) mmol/L Anion Gap (5-15) MEQ/L BUN (7-17) mg/dL Creatinine (0.52-1.04) mg/dL Estimated GFR ML/MIN Glucose (74-106) mg/dL Calcium (8.4-10.2) mg/dL Magnesium 2.1 (1.6-2.3) mg/dL Total Bilirubin (0.2-1.3) mg/dL AST (14-36) U/L ALT (0-35) U/L Alkaline Phosphatase (38-126) U/L Serum Total Protein (6.3-8.2) g/dL Albumin (3.5-5.0) g/dL TSH 3rd Generation 1.590 (0.47-4.68) mIU/L Urine Color STRAW (YELLOW) Urine Appearance SLIGHTLY CLOUDY (CLEAR) Urine pH 6.0 (5-6) Ur Specific [place] 1.004 (1.005-1.025) Urine Protein NEGATIVE (Negative) Urine Ketones NEGATIVE (NEGATIVE) Urine Blood NEGATIVE (0-5) Dima/ul Urine Nitrite NEGATIVE (NEGATIVE) Urine Bilirubin NEGATIVE (NEGATIVE) Urine Urobilinogen NEGATIVE (0-1) mg/dL Ur Leukocyte Esterase NEGATIVE (NEGATIVE) Urine WBC (Auto) NONE (0-5) /HPF Urine RBC (Auto) NONE (0-2) /HPF U Epithel Cells (Auto) NONE (FEW) /HPF Urine Bacteria (Auto) NONE (NEGATIVE) /HPF Urine Mucus (Auto) SLIGHT (NEGATIVE) /HPF Urine Culture Reflexed NO (NO) Urine Glucose NEGATIVE (NEGATIVE) mg/dL Salicylates (2-20) mg/dL Urine Opiates Level NEGATIVE (NEGATIVE) Ur Methadone NEGATIVE (NEGATIVE) Acetaminophen (10-30) ug/ml Urine Barbiturates NEGATIVE (NEGATIVE) Ur Phencyclidine (PCP) NEGATIVE (NEGATIVE) Urine Amphetamine NEGATIVE (NEGATIVE) U Benzodiazepine Level NEGATIVE (NEGATIVE) Urine Cocaine NEGATIVE (NEGATIVE) Urine Marijuana (THC) NEGATIVE (NEGATIVE) Ethyl Alcohol (0-10) mg/dL 06/13/19 06/13/19 Range/Units 16:30 16:30 WBC 8.3 (4.0-10.5) K/mm3 RBC 4.30 (4.1-5.4) M/mm3 Hgb 13.8 (12.0-16.0) gm/dl Hct 42.0 (35-47) % MCV 97.7 (78-100) fl MCH 32.1 H (26-32) pg MCHC 32.9 (32-36) g/dl RDW 14.2 H (11.5-14.0) % Plt Count 258 (150-450) K/mm3 MPV 10.0 H (6-9.5) fl Gran % 37.8 (36.0-66.0) % Eos # (Auto) 0.03 (0-0.5) Absolute Lymphs (auto) 4.40 (1.0-4.6) Absolute Monos (auto) 0.66 (0.0-1.3) Lymphocytes % 53.3 H (24.0-44.0) % Monocytes % 8.0 (0.0-12.0) % Eosinophils % 0.4 (0.00-5.0) % Basophils % 0.5 (0.0-0.4) % Absolute Granulocytes 3.13 (1.4-6.9) Basophils # 0.04 (0-0.4) Sodium 145 (137-145) mmol/L Potassium 3.8 (3.5-5.1) mmol/L Chloride 110 H (98-107) mmol/L Carbon Dioxide 24 (22-30) mmol/L Anion Gap 15.9 H (5-15) MEQ/L BUN 14 (7-17) mg/dL Creatinine 0.95 (0.52-1.04) mg/dL Estimated GFR > 60.0 ML/MIN Glucose 84 (74-106) mg/dL Calcium 9.2 (8.4-10.2) mg/dL Magnesium (1.6-2.3) mg/dL Total Bilirubin 0.20 (0.2-1.3) mg/dL AST 23 (14-36) U/L ALT 15 (0-35) U/L Alkaline Phosphatase 84 (38-126) U/L Serum Total Protein 7.5 (6.3-8.2) g/dL Albumin 4.2 (3.5-5.0) g/dL TSH 3rd Generation (0.47-4.68) mIU/L Urine Color (YELLOW) Urine Appearance (CLEAR) Urine pH (5-6) Ur Specific [place] (1.005-1.025) Urine Protein (Negative) Urine Ketones (NEGATIVE) Urine Blood (0-5) Dima/ul Urine Nitrite (NEGATIVE) Urine Bilirubin (NEGATIVE) Urine Urobilinogen (0-1) mg/dL Ur Leukocyte Esterase (NEGATIVE) Urine WBC (Auto) (0-5) /HPF Urine RBC (Auto) (0-2) /HPF U Epithel Cells (Auto) (FEW) /HPF Urine Bacteria (Auto) (NEGATIVE) /HPF Urine Mucus (Auto) (NEGATIVE) /HPF Urine Culture Reflexed (NO) Urine Glucose (NEGATIVE) mg/dL Salicylates < 1.0 L (2-20) mg/dL Urine Opiates Level (NEGATIVE) Ur Methadone (NEGATIVE) Acetaminophen < 10 L (10-30) ug/ml Urine Barbiturates (NEGATIVE) Ur Phencyclidine (PCP) (NEGATIVE) Urine Amphetamine (NEGATIVE) U Benzodiazepine Level (NEGATIVE) Urine Cocaine (NEGATIVE) Urine Marijuana (THC) (NEGATIVE) Ethyl Alcohol 215 H (0-10) mg/dL - Progress Progress: unchanged Progress Note: 06/13/19 22:08 Discussed the patient with Dr Sierra, Hospitalist. Dr Sierra accepted the patient for observation to [facility]. Discussed with : Star Will see patient in: hospital (observation) Counseled pt/family regarding: drug and/or alcohol abuse, lab results, diagnosis , need for follow-up - Departure Departure Disposition: Observation (to [facility]) Clinical Impression: Suicidal ideation, Acute alcohol abuse Condition: Fair Critical Care Time: No Referrals: RICO ELLIS [Primary Care Provider] -
[2019-06-13 16:44] LABS: Absolute Neutrophil Ct (ANC) 3.13 (1.4-6.9); BASOPHIL % 0.5 % (0.0-0.4); Basophil (Absolute #) 0.04 (0-0.4); Eosinophil % 0.4 % (0.00-5.0); Eosinophil (Absolute #) 0.03 (0-0.5); Hemoglobin 13.8 gm/dl (12.0-16.0); Lymphocytes % 53.3 % (24.0-44.0); Mean Cell Volume 97.7 fl (78-100); Mean Corpuscular Hemoglobin 32.1 pg (26-32); Mean Corpuscular Hgb Concent. 32.9 g/dl (32-36); Monocyte (Absolute #) 0.66 (0.0-1.3); Neutrophil % 37.8 % (36.0-66.0); Platelet Count 258 K/mm3 (150-450); Red Cell Distribution Width 14.2 % (11.5-14.0); White Blood Count 8.3 K/mm3 (4.0-10.5)
[2019-06-13 17:12] LABS: ALBUMIN 4.2 g/dL (3.5-5.0); ALKALINE PHOSPHATASE 84 U/L (38-126); ANION GAP 15.9 MEQ/L (5-15); BLOOD UREA NITROGEN 14 mg/dL (7-17); CHLORIDE 110 mmol/L (98-107); Calcium 9.2 mg/dL (8.4-10.2); Carbon Dioxide 24 mmol/L (22-30); Creatinine 1 0.95 mg/dL (0.52-1.04); ETHYL ALCOHOL 215 mg/dL (0-10); Glucose 84 mg/dL (74-106); Potassium 3.8 mmol/L (3.5-5.1); SGOT/AST 23 U/L (14-36); SGPT/ALT 15 U/L (0-35); SODIUM 145 mmol/L (137-145); Total Protein 7.5 g/dL (6.3-8.2)
[2019-06-13 17:24] LABS: ACETAMINOPHEN < 10 ug/ml (10-30); SALICYLATE < 1.0 mg/dL (2-20)
[2019-06-13 17:32] LABS: Appearance SLIGHTLY CLOUDY (CLEAR); Bilirubin NEGATIVE (NEGATIVE); Blood NEGATIVE Ery/ul (0-5); Glucose NEGATIVE (NEGATIVE); Ketones NEGATIVE (NEGATIVE); Leukocyte Esterase NEGATIVE (NEGATIVE); Mucus SLIGHT /HPF (NEGATIVE); Nitrite NEGATIVE (NEGATIVE); Protein,Urine Dip NEGATIVE (Negative); Specific Gravity 1.004 (1.005-1.025); Urobilinogen NEGATIVE mg/dL (0-1)
[2019-06-13 17:42] LABS: Amphetamine,Urine NEGATIVE (NEGATIVE); Barbiturate,Urine NEGATIVE (NEGATIVE); Benzodiazepine,Urine NEGATIVE (NEGATIVE); Cocaine,Urine NEGATIVE (NEGATIVE); Methadone,Urine NEGATIVE (NEGATIVE); Opiate,Urine NEGATIVE (NEGATIVE); PCP,Urine NEGATIVE (NEGATIVE); THC,Urine NEGATIVE (NEGATIVE)
[2019-06-13 17:48] LABS: MAGNESIUM 2.1 mg/dL (1.6-2.3); TSH, 3RD Generation 1.59 mIU/L (0.47-4.68)
[2019-06-14] MEDS ORDERED: ZOFRAN ODT 4 MG PO PRN (00:20)
[2019-06-14 05:50] LABS: ALBUMIN 4.4 g/dL (3.5-5.0); ALKALINE PHOSPHATASE 98 U/L (38-126); ANION GAP 13.2 MEQ/L (5-15); BLOOD UREA NITROGEN 18 mg/dL (7-17); CHLORIDE 107 mmol/L (98-107); Calcium 9.4 mg/dL (8.4-10.2); Carbon Dioxide 27 mmol/L (22-30); Creatinine 1 0.84 mg/dL (0.52-1.04); ETHYL ALCOHOL < 10 mg/dL (0-10); Glucose 90 mg/dL (74-106); SGOT/AST 26 U/L (14-36); SGPT/ALT 17 U/L (0-35); SODIUM 143 mmol/L (137-145); Total Protein 7.7 g/dL (6.3-8.2)
[2019-06-14 05:53] LABS: Potassium 4.6 mmol/L (3.5-5.1)
[2019-06-14 07:35] VITALS: BP 169/79; PULSE 54; O2SAT 99
[2019-06-14] MEDS ORDERED: Pepcid 20 MG PO SCH (10:00)
[2019-06-14] MEDS ORDERED: ENOXAPARIN SODIUM SQ SCH (10:00)
[2019-06-14] MEDS ORDERED: ECOTRIN 81 MG PO SCH (10:00)
[2019-06-14] MEDS ORDERED: Neurontin 400 MG PO SCH (11:00)
[2019-06-14] MEDS ORDERED: Protonix 40MG Tablet PO SCH (11:00)
[2019-06-14] MEDS ORDERED: Robaxin 500 MG PO SCH (11:00)
[2019-06-14] MEDS ORDERED: Toprol-Xl 25MG Tablets PO SCH (11:00)
--- NOTE | 2019-06-14 11:13 | PCM.SSS ---
History of Present Illness - Chief Complaint Chief Complaint: SI, Acute alcohol abuse History of Present Illness: is a 58 year old female pt of Dr. Alexis with PMHx depression, fibromyalgia, umbilical hernia repair x 3, smoker, who is currently being worked up for valvular heart dz and possibly chronic afib by Dr. Stephen. Pt was admitted through the ER last night, intoxicated (alcohol) and for suicidal ideation. This morning she states she remembers last night, she had just gotten in a fight with her SO (now her ex-SO) and had said, "What's the point anyway." She states she just meant she wanted to go sleep. She says their relationship was "not healthy for anyone." This morning she denies having any Suicidal ideation, and she denies having had it last night as well. Denies any homicidal ideation. She does have a hx chronic depression, is on meds. Is interested in starting counseling again with a [employer] counselor. She had a consult with [facility] this morning and they recommended outpatient treatment. She is moving today to [place] where her mom is and would like to get a counelor there. Pt denies being a heavy drinker on a regular basis. She is a smoker. Pt is currently wearing an event monitor for Dr. Stephen. She says they called the other day and told her her HR was 120. Pt's AVERY was 215 on admission - is down to <10 this morning. Her CBC and BMP and UA were grossly nl on admission. Tylenol level was negative. - Review of Systems Musculoskeletal: Arthralgias Psychological: Anxiety, Depression, No Suicidal Ideations, No Homicidal Ideations All Other Systems: Reviewed and Negative Medications & Allergies Home Medications: Home Medication List Venlafaxine HCl [Effexor Xr] 225 mg PO DAILY 05/17/15 [History Confirmed ] Aspirin 81 gm Chew [Baby Aspirin 81 mg Chew] 81 mg PO DAILY 08/30/16 [ History Confirmed 06/13/19] Atorvastatin Calcium [Lipitor] 20 mg PO HS 08/30/16 [History Confirmed 06/13/19] Gabapentin 800 mg PO QID 11/11/17 [History Confirmed 06/13/19] Methocarbamol 500 mg [Robaxin 500 MG] 500 mg PO BID 01/04/19 [History Confirmed 06/13/19] Metoprolol Succinate 25 mg Xl* [Toprol-Xl 25MG Tablets] 12.5 mg PO BID [History Confirmed 06/13/19] Omeprazole 20 mg PO BID 01/04/19 [History Confirmed 06/13/19] Trazodone HCl 50 mg [Desyrel 50 mg] 50 mg PO HS 06/13/19 [History Confirmed 06/13/19] Allergies/Adverse Reactions: Allergies Allergy/AdvReac Type Severity Reaction Status Date / Time morphine AdvReac Intermediate Headache Verified 06/13/19 16:25 - Past Medical History Past Medical History: Yes Neurological History: No Pertinent History ENT History: No Pertinent History Cardiac History: Other Respiratory History: COPD, Pneumonia Endocrine Medical History: No Pertinent History Musculoskelatal History: Arthritis, Degenerative Disk Disease, Fibromyalgia, Other GI Medical History: Colitis, GERD, Gallbladder Disease, Hernia, Ulcer History: No Pertinent History Pyscho-Social History: Anxiety, Attention Deficit Disorder, Depression, Panic Disorder Reproductive Disorders: Abnormal Uterine Bleeding, Endometriosis, Fibroids Comment: heart murmur, lupus - Female History Are you now?: No - Past Surgical History Past Surgical History: Yes Neuro Surgical History: No Pertinent History Cardiac History: No Pertinent History Respiratory Surgery: No Pertinent History GI Surgical History: Cholecystectomy, Hernia Repair Genitourinary Surgical Hx: No Pertinent History Musculskeletal Surgical Hx: Orthopedic Surgery Female Surgical History: Other Other Surgical History: left foot reconstructed in 2007 ,right knee arthroscopy left ovary removed, ectopic 1983, endometrial ablation 2005 - Social History Smoking Status: Current every day smoker How long have you smoked: 40 Exposure to second hand smoke: Yes Alcohol: Heavy Drug Use: none - Physical Exam Vital Signs: Vital Signs - 24 hr Temp Pulse Resp BP Pulse Ox 06/14/19 07:52 54 L 06/14/19 07:51 16 06/14/19 07:34 96.6 F 54 L 16 169/79 99 06/14/19 04:00 97.8 F 58 L 16 163/66 97 06/14/19 00:53 98.1 F 58 L 18 125/70 97 06/13/19 22:42 70 18 106/56 96 06/13/19 19:14 62 18 108/59 93 L 06/13/19 16:06 97.9 F 68 102/52 97 General Appearance: no apparent distress, alert Neurologic Exam: oriented x 3, cooperative, other (mildly anxious) Eye Exam: eyes nml inspection Ears, Nose, Throat Exam: moist mucous membranes Neck Exam: normal inspection, non-tender, No lymphadenopathy Respiratory Exam: normal breath sounds, lungs clear, No crackles/rales, No rhonchi, No wheezing Cardiovascular Exam: regular rate/rhythm, normal heart sounds, No murmur Gastrointestinal/Abdomen Exam: soft, normal bowel sounds, No tenderness, No distention, No mass, No guarding, No rebound Back Exam: normal inspection, No rash Extremity Exam: normal inspection, No pedal edema, No swelling Skin Exam: normal color, warm, dry, No rash Results - Labs Lab/Micro Results: Lab Results-Last 24 Hours 06/13/19 06/13/19 06/13/19 Range/Units 16:30 16:30 16:30 WBC 8.3 (4.0-10.5) K/mm3 RBC 4.30 (4.1-5.4) M/mm3 Hgb 13.8 (12.0-16.0) gm/dl Hct 42.0 (35-47) % MCV 97.7 (78-100) fl MCH 32.1 H (26-32) pg MCHC 32.9 (32-36) g/dl RDW 14.2 H (11.5-14.0) % Plt Count 258 (150-450) K/mm3 MPV 10.0 H (6-9.5) fl Gran % 37.8 (36.0-66.0) % Eos # (Auto) 0.03 (0-0.5) Absolute Lymphs (auto) 4.40 (1.0-4.6) Absolute Monos (auto) 0.66 (0.0-1.3) Lymphocytes % 53.3 H (24.0-44.0) % Monocytes % 8.0 (0.0-12.0) % Eosinophils % 0.4 (0.00-5.0) % Basophils % 0.5 (0.0-0.4) % Absolute Granulocytes 3.13 (1.4-6.9) Basophils # 0.04 (0-0.4) Sodium 145 (137-145) mmol/L Potassium 3.8 (3.5-5.1) mmol/L Chloride 110 H (98-107) mmol/L Carbon Dioxide 24 (22-30) mmol/L Anion Gap 15.9 H (5-15) MEQ/L BUN 14 (7-17) mg/dL Creatinine 0.95 (0.52-1.04) mg/dL Estimated GFR > 60.0 ML/MIN Glucose 84 (74-106) mg/dL Calcium 9.2 (8.4-10.2) mg/dL Magnesium 2.1 (1.6-2.3) mg/dL Total Bilirubin 0.20 (0.2-1.3) mg/dL AST 23 (14-36) U/L ALT 15 (0-35) U/L Alkaline Phosphatase 84 (38-126) U/L Serum Total Protein 7.5 (6.3-8.2) g/dL Albumin 4.2 (3.5-5.0) g/dL TSH 3rd Generation 1.590 (0.47-4.68) mIU/L Urine Color (YELLOW) Urine Appearance (CLEAR) Urine pH (5-6) Ur Specific [place] (1.005-1.025) Urine Protein (Negative) Urine Ketones (NEGATIVE) Urine Blood (0-5) Dima/ul Urine Nitrite (NEGATIVE) Urine Bilirubin (NEGATIVE) Urine Urobilinogen (0-1) mg/dL Ur Leukocyte Esterase (NEGATIVE) Urine WBC (Auto) (0-5) /HPF Urine RBC (Auto) (0-2) /HPF U Epithel Cells (Auto) (FEW) /HPF Urine Bacteria (Auto) (NEGATIVE) /HPF Urine Mucus (Auto) (NEGATIVE) /HPF Urine Culture Reflexed (NO) Urine Glucose (NEGATIVE) mg/dL Salicylates < 1.0 L (2-20) mg/dL Urine Opiates Level (NEGATIVE) Ur Methadone (NEGATIVE) Acetaminophen < 10 L (10-30) ug/ml Urine Barbiturates (NEGATIVE) Ur Phencyclidine (PCP) (NEGATIVE) Urine Amphetamine (NEGATIVE) U Benzodiazepine Level (NEGATIVE) Urine Cocaine (NEGATIVE) Urine Marijuana (THC) (NEGATIVE) Ethyl Alcohol 215 H (0-10) mg/dL 10/11/19 10/11/19 10/12/19 Range/Units 17:21 17:21 05:20 WBC (4.0-10.5) K/mm3 RBC (4.1-5.4) M/mm3 Hgb (12.0-16.0) gm/dl Hct (35-47) % MCV (78-100) fl MCH (26-32) pg MCHC (32-36) g/dl RDW (11.5-14.0) % Plt Count (150-450) K/mm3 MPV (6-9.5) fl Gran % (36.0-66.0) % Eos # (Auto) (0-0.5) Absolute Lymphs (auto) (1.0-4.6) Absolute Monos (auto) (0.0-1.3) Lymphocytes % (24.0-44.0) % Monocytes % (0.0-12.0) % Eosinophils % (0.00-5.0) % Basophils % (0.0-0.4) % Absolute Granulocytes (1.4-6.9) Basophils # (0-0.4) Sodium 143 (137-145) mmol/L Potassium 4.6 D (3.5-5.1) mmol/L Chloride 107 (98-107) mmol/L Carbon Dioxide 27 (22-30) mmol/L Anion Gap 13.2 (5-15) MEQ/L BUN 18 H (7-17) mg/dL Creatinine 0.84 (0.52-1.04) mg/dL Estimated GFR > 60.0 ML/MIN Glucose 90 (74-106) mg/dL Calcium 9.4 (8.4-10.2) mg/dL Magnesium (1.6-2.3) mg/dL Total Bilirubin 0.30 (0.2-1.3) mg/dL AST 26 (14-36) U/L ALT 17 (0-35) U/L Alkaline Phosphatase 98 (38-126) U/L Serum Total Protein 7.7 (6.3-8.2) g/dL Albumin 4.4 (3.5-5.0) g/dL TSH 3rd Generation (0.47-4.68) mIU/L Urine Color STRAW (YELLOW) Urine Appearance SLIGHTLY CLOUDY (CLEAR) Urine pH 6.0 (5-6) Ur Specific [place] 1.004 (1.005-1.025) Urine Protein NEGATIVE (Negative) Urine Ketones NEGATIVE (NEGATIVE) Urine Blood NEGATIVE (0-5) Dima/ul Urine Nitrite NEGATIVE (NEGATIVE) Urine Bilirubin NEGATIVE (NEGATIVE) Urine Urobilinogen NEGATIVE (0-1) mg/dL Ur Leukocyte Esterase NEGATIVE (NEGATIVE) Urine WBC (Auto) NONE (0-5) /HPF Urine RBC (Auto) NONE (0-2) /HPF U Epithel Cells (Auto) NONE (FEW) /HPF Urine Bacteria (Auto) NONE (NEGATIVE) /HPF Urine Mucus (Auto) SLIGHT (NEGATIVE) /HPF Urine Culture Reflexed NO (NO) Urine Glucose NEGATIVE (NEGATIVE) mg/dL Salicylates (2-20) mg/dL Urine Opiates Level NEGATIVE (NEGATIVE) Ur Methadone NEGATIVE (NEGATIVE) Acetaminophen (10-30) ug/ml Urine Barbiturates NEGATIVE (NEGATIVE) Ur Phencyclidine (PCP) NEGATIVE (NEGATIVE) Urine Amphetamine NEGATIVE (NEGATIVE) U Benzodiazepine Level NEGATIVE (NEGATIVE) Urine Cocaine NEGATIVE (NEGATIVE) Urine Marijuana (THC) NEGATIVE (NEGATIVE) Ethyl Alcohol < 10 (0-10) mg/dL - Other Procedures and Tests Respiratory Therapy 06/14/19 00:20 EKG Assessment/Plan (1) Acute alcohol intoxication Current Visit: No Status: Resolved Qualifiers: Complication of substance-induced condition: uncomplicated Qualified Code(s ): F10.920 - Alcohol use, unspecified with intoxication, uncomplicated Assessment & Plan: Discharge today, EtOH< 10 this morning. Code(s): F10.929 - ALCOHOL USE, UNSPECIFIED WITH INTOXICATION, UNSPECIFIED (2) Suicidal ideation Current Visit: Yes Status: Suspected Assessment & Plan: Pt states she was never suicidal and is not suicidal now. [facility] agrees OP therapy is fine. Pt to be discharged to home and will f/u with op counselor. Code(s): R45.851 - SUICIDAL IDEATIONS (3) Tobacco abuse Current Visit: Yes Status: Acute Assessment & Plan: Advised pt she should not be using any amount of tobacco particularly in light of her heart disease. Code(s): Z72.0 - TOBACCO USE Hospital Summary - Hospital Course Hospital Course: is a 58 year old female pt of Dr. Alexis with PMHx depression, fibromyalgia, umbilical hernia repair x 3, smoker, who is currently being worked up for valvular heart dz and possibly chronic afib by Dr. Stephen. Pt was admitted through the ER last night, intoxicated (alcohol) and for suicidal ideation. This morning she states she remembers last night, she had just gotten in a fight with her SO (now her ex-SO) and had said, "What's the point anyway." She states she just meant she wanted to go sleep. She says their relationship was "not healthy for anyone." This morning she denies having any Suicidal ideation, and she denies having had it last night as well. Denies any homicidal ideation. She does have a hx chronic depression, is on meds. Is interested in starting counseling again with a [employer] counselor. She had a consult with [facility] this morning and they recommended outpatient treatment. She is moving today to [place] where her mom is and would like to get a counelor there. Pt denies being a heavy drinker on a regular basis. She is a smoker. Pt is currently wearing an event monitor for Dr. Stephen. She says they called the other day and told her her HR was 120. Pt's AVERY was 215 on admission - is down to <10 this morning. Her CBC and BMP and UA were grossly nl on admission. Tylenol level was negative. - Vitals & Intake/Output Vital Signs: Vital Signs Temperature 96.6 F 06/14/19 07:34 Pulse Rate 54 L 06/14/19 07:52 Respiratory Rate 16 06/14/19 07:51 Blood Pressure 169/79 06/14/19 07:34 O2 Sat by Pulse Oximetry 99 06/14/19 07:34 Intake & Output: Intake & Output 06/11/19 06/12/19 06/13/19 06/14/19 11:59 11:59 11:59 11:59 Intake Total 200 Balance 200 Weight 82.4 kg - Lab Result Diagrams: 06/13/19 16:30 06/14/19 05:20 Lab Results-Last 24 Hrs: Lab Results-Last 24 Hours 06/13/19 06/13/19 06/13/19 Range/Units 16:30 16:30 16:30 WBC 8.3 (4.0-10.5) K/mm3 RBC 4.30 (4.1-5.4) M/mm3 Hgb 13.8 (12.0-16.0) gm/dl Hct 42.0 (35-47) % MCV 97.7 (78-100) fl MCH 32.1 H (26-32) pg MCHC 32.9 (32-36) g/dl RDW 14.2 H (11.5-14.0) % Plt Count 258 (150-450) K/mm3 MPV 10.0 H (6-9.5) fl Gran % 37.8 (36.0-66.0) % Eos # (Auto) 0.03 (0-0.5) Absolute Lymphs (auto) 4.40 (1.0-4.6) Absolute Monos (auto) 0.66 (0.0-1.3) Lymphocytes % 53.3 H (24.0-44.0) % Monocytes % 8.0 (0.0-12.0) % Eosinophils % 0.4 (0.00-5.0) % Basophils % 0.5 (0.0-0.4) % Absolute Granulocytes 3.13 (1.4-6.9) Basophils # 0.04 (0-0.4) Sodium 145 (137-145) mmol/L Potassium 3.8 (3.5-5.1) mmol/L Chloride 110 H (98-107) mmol/L Carbon Dioxide 24 (22-30) mmol/L Anion Gap 15.9 H (5-15) MEQ/L BUN 14 (7-17) mg/dL Creatinine 0.95 (0.52-1.04) mg/dL Estimated GFR > 60.0 ML/MIN Glucose 84 (74-106) mg/dL Calcium 9.2 (8.4-10.2) mg/dL Magnesium 2.1 (1.6-2.3) mg/dL Total Bilirubin 0.20 (0.2-1.3) mg/dL AST 23 (14-36) U/L ALT 15 (0-35) U/L Alkaline Phosphatase 84 (38-126) U/L Serum Total Protein 7.5 (6.3-8.2) g/dL Albumin 4.2 (3.5-5.0) g/dL TSH 3rd Generation 1.590 (0.47-4.68) mIU/L Urine Color (YELLOW) Urine Appearance (CLEAR) Urine pH (5-6) Ur Specific [place] (1.005-1.025) Urine Protein (Negative) Urine Ketones (NEGATIVE) Urine Blood (0-5) Dima/ul Urine Nitrite (NEGATIVE) Urine Bilirubin (NEGATIVE) Urine Urobilinogen (0-1) mg/dL Ur Leukocyte Esterase (NEGATIVE) Urine WBC (Auto) (0-5) /HPF Urine RBC (Auto) (0-2) /HPF U Epithel Cells (Auto) (FEW) /HPF Urine Bacteria (Auto) (NEGATIVE) /HPF Urine Mucus (Auto) (NEGATIVE) /HPF Urine Culture Reflexed (NO) Urine Glucose (NEGATIVE) mg/dL Salicylates < 1.0 L (2-20) mg/dL Urine Opiates Level (NEGATIVE) Ur Methadone (NEGATIVE) Acetaminophen < 10 L (10-30) ug/ml Urine Barbiturates (NEGATIVE) Ur Phencyclidine (PCP) (NEGATIVE) Urine Amphetamine (NEGATIVE) U Benzodiazepine Level (NEGATIVE) Urine Cocaine (NEGATIVE) Urine Marijuana (THC) (NEGATIVE) Ethyl Alcohol 215 H (0-10) mg/dL 06/13/19 06/13/19 06/14/19 Range/Units 17:21 17:21 05:20 WBC (4.0-10.5) K/mm3 RBC (4.1-5.4) M/mm3 Hgb (12.0-16.0) gm/dl Hct (35-47) % MCV (78-100) fl MCH (26-32) pg MCHC (32-36) g/dl RDW (11.5-14.0) % Plt Count (150-450) K/mm3 MPV (6-9.5) fl Gran % (36.0-66.0) % Eos # (Auto) (0-0.5) Absolute Lymphs (auto) (1.0-4.6) Absolute Monos (auto) (0.0-1.3) Lymphocytes % (24.0-44.0) % Monocytes % (0.0-12.0) % Eosinophils % (0.00-5.0) % Basophils % (0.0-0.4) % Absolute Granulocytes (1.4-6.9) Basophils # (0-0.4) Sodium 143 (137-145) mmol/L Potassium 4.6 D (3.5-5.1) mmol/L Chloride 107 (98-107) mmol/L Carbon Dioxide 27 (22-30) mmol/L Anion Gap 13.2 (5-15) MEQ/L BUN 18 H (7-17) mg/dL Creatinine 0.84 (0.52-1.04) mg/dL Estimated GFR > 60.0 ML/MIN Glucose 90 (74-106) mg/dL Calcium 9.4 (8.4-10.2) mg/dL Magnesium (1.6-2.3) mg/dL Total Bilirubin 0.30 (0.2-1.3) mg/dL AST 26 (14-36) U/L ALT 17 (0-35) U/L Alkaline Phosphatase 98 (38-126) U/L Serum Total Protein 7.7 (6.3-8.2) g/dL Albumin 4.4 (3.5-5.0) g/dL TSH 3rd Generation (0.47-4.68) mIU/L Urine Color STRAW (YELLOW) Urine Appearance SLIGHTLY CLOUDY (CLEAR) Urine pH 6.0 (5-6) Ur Specific [place] 1.004 (1.005-1.025) Urine Protein NEGATIVE (Negative) Urine Ketones NEGATIVE (NEGATIVE) Urine Blood NEGATIVE (0-5) Dima/ul Urine Nitrite NEGATIVE (NEGATIVE) Urine Bilirubin NEGATIVE (NEGATIVE) Urine Urobilinogen NEGATIVE (0-1) mg/dL Ur Leukocyte Esterase NEGATIVE (NEGATIVE) Urine WBC (Auto) NONE (0-5) /HPF Urine RBC (Auto) NONE (0-2) /HPF U Epithel Cells (Auto) NONE (FEW) /HPF Urine Bacteria (Auto) NONE (NEGATIVE) /HPF Urine Mucus (Auto) SLIGHT (NEGATIVE) /HPF Urine Culture Reflexed NO (NO) Urine Glucose NEGATIVE (NEGATIVE) mg/dL Salicylates (2-20) mg/dL Urine Opiates Level NEGATIVE (NEGATIVE) Ur Methadone NEGATIVE (NEGATIVE) Acetaminophen (10-30) ug/ml Urine Barbiturates NEGATIVE (NEGATIVE) Ur Phencyclidine (PCP) NEGATIVE (NEGATIVE) Urine Amphetamine NEGATIVE (NEGATIVE) U Benzodiazepine Level NEGATIVE (NEGATIVE) Urine Cocaine NEGATIVE (NEGATIVE) Urine Marijuana (THC) NEGATIVE (NEGATIVE) Ethyl Alcohol < 10 (0-10) mg/dL - Procedures and Test Procedures and Tests throughout Hospitalization: Therapy Orders & Screens 06/14/19 00:20 EKG Comment: - Discharge Disposition: Home, Self-Care Condition: Good Prescriptions: Continue Venlafaxine HCl [Effexor Xr] 225 mg PO DAILY Aspirin 81 gm Chew [Baby Aspirin 81 mg Chew] 81 mg PO DAILY Atorvastatin Calcium [Lipitor] 20 mg PO HS Gabapentin 800 mg PO QID Omeprazole 20 mg PO BID Methocarbamol 500 mg [Robaxin 500 MG] 500 mg PO BID Metoprolol Succinate 25 mg Xl* [Toprol-Xl 25MG Tablets] 12.5 mg PO BID Trazodone HCl 50 mg [Desyrel 50 mg] 50 mg PO HS Instructions: Depression, Adult (DC), Suicide Prevention Additional Instructions: Follow up with [facility] after discharge. [phone] call for appointment
[2019-06-14] MEDS ORDERED: NON-FORMULARY ITEM (Omeprazole [Omeprazole] 20 MG) PO SCH (22:00)
[2019-06-14] MEDS ORDERED: ZOCOR 20MG PO SCH (22:00)
[2019-06-14] MEDS ORDERED: NON-FORMULARY ITEM (Atorvastatin Calcium [Lipitor] 20 MG) PO SCH (22:00)
[2019-06-14] MEDS ORDERED: DESYREL 50 MG PO SCH (22:00)
[2019-06-15] MEDS ORDERED: BABY ASPIRIN 81 MG CHEW PO SCH (10:00)
[2019-06-15] MEDS ORDERED: Effexor XR 75 MG PO SCH (10:00)
[2019-06-15] MEDS ORDERED: NON-FORMULARY ITEM (Venlafaxine Hcl [Effexor Xr] 225 MG) PO SCH (10:00)
== END 2019-06-14 11:10 | disposition home or self-care (01) ==
LOC: ED 16:03 → ICU 06-14 00:19
PROVIDERS: ADMIT Internal Medicine; ATTEND Internal Medicine
DX: F10.920 Alcohol use, unspecified with intoxication, uncomplicated (principal); R45.851 Suicidal ideations; Z72.0 Tobacco use; I38 Endocarditis, valve unspecified; Z79.899 Other long term (current) drug therapy
CPT/HCPCS: 36415; 80053; 80307; 81001; 83735; 84443; 85025; 90791; 93005; 93268; 99285; G0378; G0481; Q3014; A9270-GY; G0480

== ENCOUNTER 2019-06-19 06:55 | Emergency (ER) | payer OTHER ==
[2019-06-19] MEDS ORDERED: Nitrostat 0.4 MG (ED) SL ONE ×2 (07:04→07:12)
--- NOTE | 2019-06-19 07:08 | ERPHSYRPT ---
- History of Present Illness Time Seen by Provider: 06/19/19 06:59 Source: patient, family, EMS, old records Exam Limitations: no limitations Physician History: PT IS A 58 Y/O WOMAN VIA EMS C/O CP. RECEIVED ASA X 4 AND NTG SL WITHOUT RELIEF VIA EMS. PT STATS 2200 LAST PM WAS TRYING TO HAVE A BM AND HAD A SUDDEN SHARP TEARING PAIN BETWEEN SHOULDER BLADES THAT RADIATED INTO HER ABD. CP IS INTERMITTENT LASTING SECONDS, SHARP, RADIATES TO BACK, NEVER FULLY GOES AWAY NO CHANGE WITH EXERTION. ABD PAIN IS EPIGASTRIC SHARP NON RADIATING. LLE TINGLING INTERMITTENTLY LAST PM. NO FEVER/CHILLS + NAUSEA NO VOMITING OR DIAPHORESIS. NO MELENA. NO DYSURIA/HEMATURIA + ETOH ABUSE LAST WAS 1 WEEK AGO. CP BEGAN AT 0700 AM. PMHX/PSHX/MEDS/ALL REVIEWED + TOB + ETOH DAILY DENIES ILLICITS FHX + CAD NEG AORTA Allergies/Adverse Reactions: morphine Adverse Reaction (Intermediate, Verified 06/19/19 07:24) Headache iv morphine only no issues with po morphine Home Medications: Venlafaxine HCl [Effexor Xr] 225 mg PO DAILY 05/17/15 [History] Aspirin 81 gm Chew [Baby Aspirin 81 mg Chew] 81 mg PO DAILY 08/30/16 [ History] Atorvastatin Calcium [Lipitor] 20 mg PO HS 08/30/16 [History] Gabapentin 800 mg PO QID 11/11/17 [History] Methocarbamol 500 mg [Robaxin 500 MG] 500 mg PO BID 01/04/19 [History] Metoprolol Succinate 25 mg Xl* [Toprol-Xl 25MG Tablets] 12.5 mg PO BID [History] Omeprazole 20 mg PO BID 01/04/19 [History] Trazodone HCl 50 mg [Desyrel 50 mg] 50 mg PO HS 06/13/19 [History] Hx Tetanus, Diphtheria Vaccination/Date Given: No Hx Influenza Vaccination/Date Given: No Hx Pneumococcal Vaccination/Date Given: No - Review of Systems Constitutional: No Symptoms, No Fever, No Chills, No Fatigue, No Lethargy, No Malaise, No Night Sweats, No Weakness, No Weight Loss Eyes: No Symptoms, No Discharge, No Eye Pain, No Eye Redness, No Itchy, No Photophobia, No Tearing, No Vision Changes, No Double Vision, No Foreign Body Sensation Ears, Nose, & Throat: No Symptoms, No Ear Pain, No Ear Discharge, No Hearing Changes, No Tinnitus, No Nose Congestion, No Nose Discharge, No Epistaxis, No Mouth Pain, No Mouth Swelling, No Throat Pain, No Throat Swelling, No Hoarse, No Painful Swallowing, No Stridor Respiratory: No Symptoms, No Cough, No Cyanosis, No Dyspnea, No Dyspnea on Exertion (PERKINS), No Stridor, No Wheezing Cardiac: No Symptoms, Chest Pain, No Edema, No Palpitations, No Syncope, No Orthopnea Abdominal/Gastrointestinal: No Symptoms, Abdominal Pain, Nausea, No Vomiting, No Diarrhea, No Constipation, No Hematemesis, No Hematochezia, No Melena, No Dysphagia, No Appetite Changes Genitourinary Symptoms: No Symptoms, No Dysuria, No Frequency, No Hematuria, No Hesitancy, No Incontinence, No Urgency, No Urinary Retention, No Flank Pain, No Menorrhagia, No , No Vaginal Bleeding, No Vaginal Discharge Musculoskeletal: No Symptoms, No Arthralgias, No Back Pain, No Neck Pain, No Deformity, No Fall, No Injury, No Joint Redness, No Joint Pain, No Joint Swelling, No Myalgias Skin: No Symptoms, No Cellulitis, No Decubiti, No Induration, No Pruritis, No Rash, No Skin Lesions, No Dryness Neurological: No Symptoms, No Dizziness, No Focal Weakness, No Gait Changes, No Headache, No Irritability, No Lethargy, No Paralysis, No Parasthesia, No Seizure , No Sensory Changes, No Speech Changes, No Tics, No Tremors, No Vertigo Psychological: No Symptoms, No Alcohol Abuse, No Drug Abuse, No Anxiety, No Depression, No Suicidal Ideations, No Homicidal Ideations, No Emotional Lability , No Hallucinations, No Memory Loss, No Mood Changes Endocrine: No Symptoms, No Polyuria, No Polydipsia, No Hair Changes, No Cold Intolerance, No Excessive Sweating, No Goiter Hematologic/Lymphatic: No Symptoms, No Anemia, No Blood Clots, No Easy Bleeding , No Gum Bleeding, No Easy Bruising, No Adenopathy Immunological/Allergic: No Symptoms All Other Systems: Reviewed and Negative - Past Medical History Pertinent Past Medical History: Yes Neurological History: No Pertinent History ENT History: No Pertinent History Cardiac History: Other Respiratory History: COPD, Pneumonia Endocrine Medical History: No Pertinent History Musculoskeletal History: Arthritis, Degenerative Disk Disease, Fibromyalgia, Other GI Medical History: Colitis, GERD, Gallbladder Disease, Hernia, Ulcer History: No Pertinent History Psycho-Social History: Anxiety, Attention Deficit Disorder, Depression, Panic Disorder Female Reproductive Disorders: Abnormal Uterine Bleeding, Endometriosis, Fibroids Other Medical History: heart murmur, lupus - Past Surgical History Past Surgical History: Yes Neuro Surgical History: No Pertinent History Cardiac: No Pertinent History Respiratory: No Pertinent History Gastrointestinal: Cholecystectomy, Hernia Repair Genitourinary: No Pertinent History Musculoskeletal: Orthopedic Surgery Female Surgical History: Other Other Surgical History: left foot reconstructed in 2007 ,right knee arthroscopy left ovary removed, ectopic 1983, endometrial ablation 2005 - Social History Smoking Status: Current every day smoker How long have you smoked: 40 Exposure to second hand smoke: Yes Drug Use: none Patient Lives Alone: No - Nursing Vital Signs Nursing Vital Signs: Initial Vital Signs Temperature 97.4 F 06/19/19 06:58 Pulse Rate 70 06/19/19 06:58 Respiratory Rate 20 06/19/19 06:58 Blood Pressure 171/102 06/19/19 06:58 O2 Sat by Pulse Oximetry 99 06/19/19 06:58 Pain Scale Pain Intensity 0 - Physical Exam General Appearance: mild distress, alert Eye Exam: PERRL/EOMI, eyes nml inspection, other (fundi normal myles), No scleral icterus, No pale conjunctivae, No photophobia, No EOM palsy/anisocoria Ears, Nose, Throat Exam: normal ENT inspection, TMs normal, pharynx normal, TM abnormal (L), other (uvula midline, floor of mouth soft), No moist mucous membranes, No dry mucous membranes, No TM abnormal (R), No pharyngeal erythema, No tonsillar exudate Neck Exam: normal inspection, non-tender, supple, full range of motion, No meningismus, No mass, No Brudzinski, No Kernig's, No carotid bruit, No JVD, No limited range of motion, No lymphadenopathy, No midline tenderness, No thyromegaly Respiratory Exam: normal breath sounds, lungs clear, airway intact, diminished breath sounds, No chest tenderness, No respiratory distress, No accessory muscle use, No prolonged expirations, No crackles/rales, No rhonchi, No wheezing , No stridor, No pleural rub Cardiovascular Exam: regular rate/rhythm, normal heart sounds, normal peripheral pulses, capillary refill <2 sec, No murmur, No friction rub, No gallop, No tachycardia, No bradycardia, No irregular, No capillary refill 2-3 sec, No capillary refill >3 sec, No edema, No pulse deficit Gastrointestinal/Abdomen Exam: soft, normal bowel sounds, No tenderness, No distention, No mass, No guarding, No ecchymosis, No pulsatile mass, No rebound, No hernia, No hepatomegaly, No organomegaly, No splenomegaly, No bruit Pelvic Exam: normal external exam Rectal Exam: deferred Back Exam: normal inspection, normal range of motion, other (neg slr myles, no sacral anesthesia, dtr 2/4 myles patella), No CVA tenderness, No vertebral tenderness, No rash, No decreased range of motion, No muscle spasm, No point tenderness Extremity Exam: normal inspection, normal range of motion, pelvis stable, No amputations, No contusions, No calf tenderness, No deformities, No lacerations, No parasthesia, No paralysis, No inflammation, No joint swelling, No limited range of motion, No pedal edema, No swelling, No tenderness Neurologic Exam: alert, oriented x 3, cooperative, 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 as tested, normal mood/affect, nml cerebellar function, nml station & gait, sensation nml, No motor deficits, No sensory deficit, No disoriented, No confusion, No agitation, No uncooperative, No intoxicated appearance, No depressed mood/affect , No motor weakness, No facial droop, No slurred speech, No aphasia, No dysarthria, No abnormal gait, No abnormal cerebellar tests, No abnormal information security systems instructor II- XII, No EOM palsy Skin Exam: normal color, warm, dry, No rash, No petechiae, No jaundice, No abrasion, No cyanosis, No diaphoresis, No decubitus, No embolic lesions, No ecchymosis, No jaundice, No laceration, No mottled, No pale Lymphatic Exam: No adenopathy SpO2 Interpretation: normal O2 Delivery: Room Air - Course Nursing assessment & vital signs reviewed: Yes EKG Interpreted by Me: RATE (71), NORMAL AXIS, NORMAL INTERVALS, NORMAL QRS, NORMAL ST-T Ordered Tests: Active Orders 24 hr Category Date Time Status Principal Statistical Programmer STAT Care 06/19/19 07:05 Active EKG-ER Only STAT Care 06/19/19 07:04 Active IV Insertion STAT Care 06/19/19 07:04 Active Oxygen-ED Only Nasal Cannula 2 lpm Care 06/19/19 07:04 Active Pulse Oximetry (ED) STAT Care 06/19/19 07:04 Active CHEST 1 VIEW (PORTABLE) Stat Exams 06/19/19 07:05 Completed CTA ABD/PEL W AND/OR W/O CONTR [CT] Stat Exams 06/19/19 07:09 Taken CTA CHEST W AND/OR WO [CT] Stat Exams 06/19/19 07:09 Taken CBC W DIFF Stat Lab 06/19/19 07:25 Completed CK-Creatinine Phosphokinase Stat Lab 06/19/19 07:25 Completed CMP Stat Lab 06/19/19 07:25 Completed CULTURE,URINE Stat Lab 06/19/19 08:20 Received ETHYL ALCOHOL Stat Lab 06/19/19 07:25 Completed LIPASE Stat Lab 06/19/19 07:25 Completed NT PRO BNP Stat Lab 06/19/19 07:25 Completed PROTIME WITH INR Stat Lab 06/19/19 07:25 Completed TROPONIN Q3H Lab 06/19/19 07:25 Completed TROPONIN Q3H Lab 06/19/19 10:15 Ordered TROPONIN Q3H Lab 06/19/19 13:15 Ordered TROPONIN Q3H Lab 06/19/19 16:15 Ordered TROPONIN Q3H Lab 06/19/19 19:15 Ordered UA W/RFX UR CULTURE Stat Lab 06/19/19 08:20 Completed Medication Summary Discontinued Medications Generic Name Dose Route Start Last Admin Trade Name Freq PRN Reason Stop Dose Admin Hydromorphone HCl 1 mg 06/19/19 07:28 06/19/19 07:31 Hydromorphone 1 Mg/Ml Ampule IV 06/19/19 07:29 1 mg STAT ONE Administration Hydromorphone HCl Confirm 06/19/19 07:30 Hydromorphone 1 Mg/Ml Ampule Administered 06/19/19 07:31 Dose 1 mg .ROUTE .STK-MED ONE Nitroglycerin 0.4 mg 06/19/19 07:04 06/19/19 08:11 Nitrostat 0.4 Mg (Ed) SL 06/19/19 07:05 Not Given STAT ONE Nitroglycerin Confirm 06/19/19 07:12 Nitrostat 0.4 Mg (Ed) Administered 06/19/19 07:13 Dose 0.4 mg SL .STK-MED ONE Lab/Rad Data: Laboratory Result Diagrams 06/19/19 07:25 06/19/19 07:25 Laboratory Results 06/19/19 06/19/19 06/19/19 Range/Units 08:20 07:25 07:25 WBC (4.0-10.5) K/mm3 RBC (4.1-5.4) M/mm3 Hgb (12.0-16.0) gm/dl Hct (35-47) % MCV (78-100) fl MCH (26-32) pg MCHC (32-36) g/dl RDW (11.5-14.0) % Plt Count (150-450) K/mm3 MPV (6-9.5) fl Gran % (36.0-66.0) % Eos # (Auto) (0-0.5) Absolute Lymphs (auto) (1.0-4.6) Absolute Monos (auto) (0.0-1.3) Lymphocytes % (24.0-44.0) % Monocytes % (0.0-12.0) % Eosinophils % (0.00-5.0) % Basophils % (0.0-0.4) % Absolute Granulocytes (1.4-6.9) Basophils # (0-0.4) PT 11.1 (9.95-12.35) SECONDS INR 0.98 (0.8-3.0) Sodium (137-145) mmol/L Potassium (3.5-5.1) mmol/L Chloride (98-107) mmol/L Carbon Dioxide (22-30) mmol/L Anion Gap (5-15) MEQ/L BUN (7-17) mg/dL Creatinine (0.52-1.04) mg/dL Estimated GFR ML/MIN Glucose (74-106) mg/dL Calcium (8.4-10.2) mg/dL Total Bilirubin (0.2-1.3) mg/dL AST (14-36) U/L ALT (0-35) U/L Alkaline Phosphatase (38-126) U/L Creatine Kinase (30-135) U/L Troponin I < 0.012 (0.000-0.034) ng/mL NT-Pro-B Natriuret Pep (0-900) pg/mL Serum Total Protein (6.3-8.2) g/dL Albumin (3.5-5.0) g/dL Lipase (23-300) U/L Urine Color GRAEME (YELLOW) Urine Appearance SLIGHTLY CLOUDY (CLEAR) Urine pH 6.0 (5-6) Ur Specific Morehouse 1.033 (1.005-1.025) Urine Protein 100 (Negative) Urine Ketones TRACE (NEGATIVE) Urine Blood NEGATIVE (0-5) Dima/ul Urine Nitrite NEGATIVE (NEGATIVE) Urine Bilirubin SMALL (NEGATIVE) Urine Urobilinogen 2 (0-1) mg/dL Ur Leukocyte Esterase NEGATIVE (NEGATIVE) Urine WBC (Auto) 0-2 (0-5) /HPF Urine RBC (Auto) 6-10 (0-2) /HPF U Epithel Cells (Auto) FEW (FEW) /HPF Urine Bacteria (Auto) RARE (NEGATIVE) /HPF Urine Mucus (Auto) SLIGHT (NEGATIVE) /HPF Urine Culture Reflexed YES (NO) Urine Glucose NEGATIVE (NEGATIVE) mg/dL Ethyl Alcohol (0-10) mg/dL 06/19/19 06/19/19 Range/Units 07:25 07:25 WBC 13.5 H (4.0-10.5) K/mm3 RBC 4.23 (4.1-5.4) M/mm3 Hgb 13.9 (12.0-16.0) gm/dl Hct 40.5 (35-47) % MCV 95.7 (78-100) fl MCH 32.9 H (26-32) pg MCHC 34.3 (32-36) g/dl RDW 13.8 (11.5-14.0) % Plt Count 228 (150-450) K/mm3 MPV 10.0 H (6-9.5) fl Gran % 78.6 H (36.0-66.0) % Eos # (Auto) 0.01 (0-0.5) Absolute Lymphs (auto) 1.81 (1.0-4.6) Absolute Monos (auto) 1.04 (0.0-1.3) Lymphocytes % 13.4 L (24.0-44.0) % Monocytes % 7.7 (0.0-12.0) % Eosinophils % 0.1 (0.00-5.0) % Basophils % 0.2 (0.0-0.4) % Absolute Granulocytes 10.64 H (1.4-6.9) Basophils # 0.03 (0-0.4) PT (9.95-12.35) SECONDS INR (0.8-3.0) Sodium 140 (137-145) mmol/L Potassium 4.2 (3.5-5.1) mmol/L Chloride 104 (98-107) mmol/L Carbon Dioxide 25 (22-30) mmol/L Anion Gap 14.8 (5-15) MEQ/L BUN 18 H (7-17) mg/dL Creatinine 0.73 (0.52-1.04) mg/dL Estimated GFR > 60.0 ML/MIN Glucose 132 H (74-106) mg/dL Calcium 10.5 H (8.4-10.2) mg/dL Total Bilirubin 0.50 (0.2-1.3) mg/dL AST 25 (14-36) U/L ALT 21 (0-35) U/L Alkaline Phosphatase 93 (38-126) U/L Creatine Kinase 137 H (30-135) U/L Troponin I (0.000-0.034) ng/mL NT-Pro-B Natriuret Pep 254 (0-900) pg/mL Serum Total Protein 7.8 (6.3-8.2) g/dL Albumin 4.6 (3.5-5.0) g/dL Lipase 69 (23-300) U/L Urine Color (YELLOW) Urine Appearance (CLEAR) Urine pH (5-6) Ur Specific Morehouse (1.005-1.025) Urine Protein (Negative) Urine Ketones (NEGATIVE) Urine Blood (0-5) Dima/ul Urine Nitrite (NEGATIVE) Urine Bilirubin (NEGATIVE) Urine Urobilinogen (0-1) mg/dL Ur Leukocyte Esterase (NEGATIVE) Urine WBC (Auto) (0-5) /HPF Urine RBC (Auto) (0-2) /HPF U Epithel Cells (Auto) (FEW) /HPF Urine Bacteria (Auto) (NEGATIVE) /HPF Urine Mucus (Auto) (NEGATIVE) /HPF Urine Culture Reflexed (NO) Urine Glucose (NEGATIVE) mg/dL Ethyl Alcohol < 10 (0-10) mg/dL - Progress Progress: improved Progress Note: 06/19/19 07:15 CALLED FOR BEDSIDE US FORMAL. PORTABLE NOT AVAIL TO LOOK AT [facility] 06/19/19 07:29 MYLES ARM SBP ARE EQUAL BEDSIDE US NO OBVIOUS AORTIC DISSECTION PT REFUSES MORPHINE "IT GIVES ME A HEADACHE I CANT TAKE THAT." 06/19/19 07:38 NO RELIEF WITH NTG , RELIEF WITH DILAUDID 06/19/19 08:09 ER PRELIM CXR IS NAD 06/19/19 09:24 CALL TO RAD PLEASE READ CTANGIO STUDY 06/19/19 09:26 DW RAD DIRECTOR. CANNOT GET CTA IN UNDER 1 HR BC REQUIRES RAD PROCESSING. STUDY IS COMPLETE. STILL PROCESSING. EPIGASTRIC DISCOMFORT FREE. PT STATES MILD THORACIC DISCOMFORT BUT FEELS COMFORTABLE. 06/19/19 09:42 HEART SCORE IS 4. 06/19/19 10:02 CT POS FOR LEODAN B AORTIC DISSECTION FROM L PUL VEIN TO ABD AORTA DOWN TO L COMMON ILIEAC AND L COMMON VEIN MAX DIAMMORALES 3-4 CALL TO PHARMACY FOR ESMOLOL DRIP FINDNGS REVIEWED WITH PT ALL QUESTIONS ANSWERED TO PT SATISFACTON CALL TO [facility] ER ACCEPTS ADMIT CARE TRANSFERRED DW ESPER CT SURGERY SINCE ? TYPE A ---CT READ SAYS THORACIC AORTA IS UNREMARKABLE WILL START ESMOL[facility] PHARMACY HAS TO EMPTY OUT DOSE FOR HOSPITAL---MAY NOT HAVE ENOUGH WILL PUSH LABETALOL NOW FINDINGS REVIEWED WITH PT ALL QUESTIONS ANSWERED TO HER SATISFACTION EMS AT BEDSIDE JENI JARAMILLO COMPLETE 06/19/19 10:19 Authorized and Performed by: MICHELLE Total critical care time: Approximately 30 minutes Due to a high probability of clinically significant, life threatening deterioration, the patient required my highest level of preparedness to intervene emergently and I personally spent this critical care time directly and personally managing the patient. This critical care time included obtaining a history; examining the patient; pulse oximetry; ordering and review of studies ; arranging urgent treatment with development of a management plan; evaluation of patient's response to treatment; frequent reassessment; and, discussions with other providers. This critical care time was performed to assess and manage the high probability of imminent, life-threatening deterioration that could result in multi-organ failure. It was exclusive of separately billable procedures and treating other patients and teaching time. Will see patient in: hospital (observation) Counseled pt/family regarding: drug and/or alcohol abuse, lab results, diagnosis , need for follow-up, rad results, smoking cessation - Departure Departure Disposition: Transfer Clinical Impression: Acute dissection of thoracic aorta Condition: Stable Critical Care Time: Yes Critical Care Time(excluding separately billable procedures): Critical 30-74 mins Referrals: RICO ELLIS [Primary Care Provider] -
[2019-06-19] MEDS ORDERED: Hydromorphone 1 mg/ml Ampule IV ONE ×2 (07:28→10:17)
[2019-06-19] MEDS ORDERED: Hydromorphone 1 mg/ml Ampule ONE ×2 (07:30→10:18)
[2019-06-19 07:34] LABS: Absolute Neutrophil Ct (ANC) 10.64 (1.4-6.9); BASOPHIL % 0.2 % (0.0-0.4); Basophil (Absolute #) 0.03 (0-0.4); Eosinophil % 0.1 % (0.00-5.0); Eosinophil (Absolute #) 0.01 (0-0.5); Hematocrit 40.5 % (35-47); Hemoglobin 13.9 gm/dl (12.0-16.0); Lymphocyte (Absolute #) 1.81 (1.0-4.6); Lymphocytes % 13.4 % (24.0-44.0); Mean Cell Volume 95.7 fl (78-100); Mean Corpuscular Hemoglobin 32.9 pg (26-32); Mean Corpuscular Hgb Concent. 34.3 g/dl (32-36); Monocyte (Absolute #) 1.04 (0.0-1.3); Monocytes % 7.7 % (0.0-12.0); Neutrophil % 78.6 % (36.0-66.0); Platelet Count 228 K/mm3 (150-450); Red Blood Count 4.23 M/mm3 (4.1-5.4); Red Cell Distribution Width 13.8 % (11.5-14.0); White Blood Count 13.5 K/mm3 (4.0-10.5)
[2019-06-19 07:48] LABS: INR 0.98 (0.8-3.0); PROTIME 11.1 SECONDS (9.95-12.35)
[2019-06-19 08:01] LABS: ALBUMIN 4.6 g/dL (3.5-5.0); ALKALINE PHOSPHATASE 93 U/L (38-126); ANION GAP 14.8 MEQ/L (5-15); BLOOD UREA NITROGEN 18 mg/dL (7-17); CHLORIDE 104 mmol/L (98-107); CK-Creatinine Phosphokinase 137 U/L (30-135); Calcium 10.5 mg/dL (8.4-10.2); Carbon Dioxide 25 mmol/L (22-30); Creatinine 1 0.73 mg/dL (0.52-1.04); Glucose 132 mg/dL (74-106); LIPASE 69 U/L (23-300); NT PRO BNP 254 pg/mL (0-900); Potassium 4.2 mmol/L (3.5-5.1); SGOT/AST 25 U/L (14-36); SGPT/ALT 21 U/L (0-35); SODIUM 140 mmol/L (137-145); Total Protein 7.8 g/dL (6.3-8.2)
[2019-06-19 08:02] LABS: ETHYL ALCOHOL < 10 mg/dL (0-10)
[2019-06-19 08:27] LABS: Appearance SLIGHTLY CLOUDY (CLEAR); Bacteria RARE /HPF (NEGATIVE); Bilirubin SMALL (NEGATIVE); Blood NEGATIVE Ery/ul (0-5); Epithelial Cells FEW /HPF (FEW); Glucose NEGATIVE (NEGATIVE); Ketones TRACE (NEGATIVE); Leukocyte Esterase NEGATIVE (NEGATIVE); Mucus SLIGHT /HPF (NEGATIVE); Nitrite NEGATIVE (NEGATIVE); Protein,Urine Dip 100 (Negative); Specific Gravity 1.033 (1.005-1.025); Urobilinogen 2 mg/dL (0-1); WBC 0-2 /HPF (0-5)
--- NOTE | 2019-06-19 09:09 | XRAY ---
Indication: Chest pain. Comparison: December 21, 2017. Portable chest demonstrates minimal bibasilar atelectasis/scarring and tiny right base calcified granuloma. Remaining heart and lungs unremarkable. Bony thorax intact again with mild degenerative changes, old left clavicle fracture, and minimal dextroscoliosis. Impression: Nonacute chest with chronic features.
[2019-06-19 09:56] VITALS: BP 165/78; PULSE 81; O2SAT 96
[2019-06-19] MEDS ORDERED: TRANDATE 20 MG/5 ML SYRINGE IV ONE (10:16)
[2019-06-19] MEDS ORDERED: TRANDATE 100 MG/20 ML MDV FOR DRIP IV ONE (10:18)
--- NOTE | 2019-06-19 10:19 | XRAY ---
Indication: Chest and abdomen pain. Pain between shoulder blades. Conventional contrast enhanced CTA chest, abdomen, and pelvis performed using 100 cc Isovue 370 contrast. Two-dimensional sagittal and coronal reformatted images obtained. Additional 3-dimensional reformatted images obtained using a separate workstation. Comparison: None Ascending aorta is unremarkable. Aortic arch and proximal descending aorta demonstrates moderate arteriosclerotic disease with maximum diameter 3.5 cm. Beginning at the level of the left pulmonary vein, there is aortic dissection occupying more than 50% of the lumen. Aortic aneurysm extends throughout the descending aorta, abdominal aorta, left common iliac, and left common femoral arteries. The celiac, superior mesenteric, both renal, and inferior mesenteric arteries demonstrates normal perfusion via the true lumen. Maximum diameter of the descending thoracic aorta is 3.4 cm at the level of the main pulmonary vessels, 3.1 cm at the level of the diaphragm, 3 cm at the level of the superior mesenteric artery, and 1.9 cm just above the aortic bifurcation. Left common iliac artery measures 1.2 cm and left common femoral artery measures 9 mm in maximum diameter. No free fluid/air. Heart is not enlarged. No pericardial effusion. A few right perihilar and subcarinal calcified nodes. No pathologic mediastinal/hilar lymphadenopathy. Lungs are inflated with mild bilateral dependent atelectasis and right base calcified granuloma. No suspicious pulmonary mass, infiltrate, or effusion. Noncontrasted stomach and bowel loops appear nonobstructed. Normal appendix. Scattered descending/sigmoid diverticulosis, previous cholecystectomy, and calcified splenic granulomas. Liver is enlarged measuring 21.3 cm in CC dimension. Remaining liver, pancreas, spleen, adrenal glands, kidneys, ureters, bladder, and uterus appear unremarkable. No pathologic retroperitoneal lymphadenopathy. Osseous structures demonstrates minimal degenerative changes throughout the thoracolumbar spine. Old nonunited left clavicle shaft fracture. Small fatty umbilical hernia. Impression: 1. Win type B thoracoabdominal aortic dissection as detailed. Dissection further extends to involves the left iliac and left common femoral arteries. 2. Incidental hepatomegaly, colonic diverticulosis, fatty umbilical hernia, and evidence for old granulomatous disease. Comment: Telephone report given to Dr. Adler in the ER at 0955 hours on June 19, 2019. CTDI 22.19
[2019-06-19] MEDS ORDERED: BREVIBLOC IV SCH (10:30)
[2019-06-19] MEDS ORDERED: SODIUM CHLORIDE 0.9% IV SCH (10:30)
== END 2019-06-19 10:45 | disposition short-term general hospital (02) ==
LOC: ED 06:55
DX: I71.01 Dissection of thoracic aorta (principal)
CPT/HCPCS: 36000; 36415; 71045; 71275; 74174; 80053; 80307; 81001; 82550; 83690; 83880; 84484; 85025; 85610; 87086; 93005; 93041; 94760; 96365; 96374; 96375; 96376; 99285; 99291; J1170; A9270-GY; G0480

== ENCOUNTER 2020-01-29 17:55 | Emergency (ER) | payer OTHER ==
--- NOTE | 2020-01-29 18:04 | ERPHSYRPT ---
- History of Present Illness Time Seen by Provider: 01/29/20 17:59 Historian: patient, EMS, police Exam Limitations: no limitations Physician History: This is a 59-year-old white female who was brought in by ambulance service complaining of chest pain, shortness of breath and feeling as though she is going to pass out. The ambulance service was called to the [facility]. The patient was in custody secondary to domestic issue. Patient states that she has a lot of stress and it is an anxiety issue as well. Patient was found to have blood pressure of 100/70. Heart rate was in the 70s. In June 2019, patient went a repair of a intrathoracic aortic dissection. She continues to smoke cigarettes. Patient has no abdominal pain describes the pain has been intermittent and occasionally sharp. Patient states it is not tearing and does not feel anything like her aortic dissection pain. Timing/Duration: today, intermittent Activities at Onset: emotional stress Quality: sharpness Location: substernal, central Chest Pain Radiation: no radiation Severity of Pain-Max: moderate Severity of Pain-Current: mild Modifying Factors: Improves With: nothing Associated Symptoms: denies symptoms, shortness of breath, No weakness, No syncope, No headache, No dizziness Nitro Today/Relief: no nitro taken today Aspirin Treatment Today: no aspirin today Allergies/Adverse Reactions: morphine Adverse Reaction (Intermediate, Verified 01/29/20 18:12) Headache iv morphine only no issues with po morphine Home Medications: Venlafaxine HCl [Effexor Xr] 225 mg PO DAILY 05/17/15 [History] Aspirin 81 gm Chew [Baby Aspirin 81 mg Chew] 81 mg PO DAILY 08/30/16 [ History] Atorvastatin Calcium [Lipitor] 20 mg PO HS 08/30/16 [History] Gabapentin 800 mg PO QID 11/11/17 [History] Methocarbamol 500 mg [Robaxin 500 MG] 500 mg PO BID 01/04/19 [History] Metoprolol Succinate 25 mg Xl* [Toprol-Xl 25MG Tablets] 12.5 mg PO BID [History] Omeprazole 20 mg PO BID 01/04/19 [History] Trazodone HCl 50 mg [Desyrel 50 mg] 50 mg PO HS 06/13/19 [History] Buprenorphine HCl [Belbuca] 1 patch TOP BID 01/29/20 [History] Hydrocodone/Acetaminophen [Hydrocodone-Acetamin 7.5-325] 1 tab PO DAILY [History] Hx Tetanus, Diphtheria Vaccination/Date Given: No Hx Influenza Vaccination/Date Given: No Hx Pneumococcal Vaccination/Date Given: No Travel Risk - International Travel Have you traveled outside of the country in past 3 weeks: No Have you or anyone close to you been diagnosed with or: No Do your reside in a community with a known COVID-19 case?: Yes If Yes where:: [facility] - Coronavirus Screening Has patient experienced Coronavirus symptoms: No - Review of Systems Constitutional: No Symptoms Eyes: No Symptoms Ears, Nose, & Throat: No Symptoms Respiratory: Dyspnea Cardiac: Chest Pain Abdominal/Gastrointestinal: No Symptoms Genitourinary Symptoms: No Symptoms Musculoskeletal: No Symptoms Skin: No Symptoms Neurological: No Symptoms Psychological: No Symptoms Endocrine: No Symptoms Hematologic/Lymphatic: No Symptoms Immunological/Allergic: No Symptoms All Other Systems: Reviewed and Negative - Past Medical History Pertinent Past Medical History: Yes Neurological History: No Pertinent History ENT History: No Pertinent History Cardiac History: Other Respiratory History: COPD, Pneumonia Endocrine Medical History: No Pertinent History Musculoskeletal History: Arthritis, Degenerative Disk Disease, Fibromyalgia, Other GI Medical History: Colitis, GERD, Gallbladder Disease, Hernia, Ulcer History: No Pertinent History Psycho-Social History: Anxiety, Attention Deficit Disorder, Depression, Panic Disorder Female Reproductive Disorders: Abnormal Uterine Bleeding, Endometriosis, Fibroids Other Medical History: heart murmur, lupus - Past Surgical History Past Surgical History: Yes Neuro Surgical History: No Pertinent History Cardiac: No Pertinent History Respiratory: No Pertinent History Gastrointestinal: Cholecystectomy, Hernia Repair Genitourinary: No Pertinent History Musculoskeletal: Orthopedic Surgery Female Surgical History: Other Other Surgical History: left foot reconstructed in 2007 ,right knee arthroscopy left ovary removed, ectopic 1983, endometrial ablation 2005 - Social History Smoking Status: Current every day smoker How long have you smoked: 40 Exposure to second hand smoke: Yes Drug Use: none Patient Lives Alone: No - Nursing Vital Signs Nursing Vital Signs: Initial Vital Signs Temperature 97.7 F 01/29/20 18:03 Pulse Rate 76 01/29/20 18:03 Respiratory Rate 16 01/29/20 18:03 Blood Pressure 122/61 01/29/20 18:03 O2 Sat by Pulse Oximetry 99 01/29/20 18:03 Pain Scale Pain Intensity 0 - Physical Exam General Appearance: mild distress, alert, anxiety Eye Exam: PERRL/EOMI, eyes nml inspection Ears, Nose, Throat Exam: normal ENT inspection, moist mucous membranes Neck Exam: normal inspection, non-tender, supple, full range of motion Respiratory Exam: normal breath sounds, lungs clear, airway intact, No chest tenderness, No respiratory distress Cardiovascular Exam: regular rate/rhythm, normal heart sounds, normal peripheral pulses Gastrointestinal/Abdomen Exam: soft, normal bowel sounds, No tenderness, No guarding Pelvic Exam: not done Rectal Exam: not done Back Exam: normal inspection, normal range of motion, No CVA tenderness, No vertebral tenderness Extremity Exam: normal inspection, normal range of motion, pelvis stable Neurologic Exam: alert, oriented x 3, 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 Care 01/29/20 18:05 Active EKG-ER Only STAT Care 01/29/20 18:05 Active IV Insertion STAT Care 01/29/20 18:05 Active CTA CHEST W AND/OR WO [CT] Stat Exams 01/29/20 18:06 Taken CBC W DIFF Stat Lab 01/29/20 17:30 Completed CMP Stat Lab 01/29/20 17:30 Completed NT PRO BNP Stat Lab 01/29/20 17:30 Completed PROTIME WITH INR Stat Lab 01/29/20 17:30 Completed TROPONIN Q3H Lab 01/29/20 17:30 Completed TROPONIN Q3H Lab 01/29/20 21:15 Ordered TROPONIN Q3H Lab 01/30/20 00:15 Ordered TROPONIN Q3H Lab 01/30/20 03:15 Ordered TROPONIN Q3H Lab 01/30/20 06:15 Ordered UA W/RFX UR CULTURE Stat Lab 01/29/20 18:25 Completed Urine Triage Profile Stat Lab 01/29/20 18:25 Completed Medication Summary Discontinued Medications Generic Name Dose Route Start Last Admin Trade Name Dariela PRN Reason Stop Dose Admin Aspirin 324 mg 01/29/20 18:05 01/29/20 18:23 Baby Aspirin 81 Mg Chew PO 01/29/20 18:06 324 mg STAT ONE Administration Lab/Rad Data: Laboratory Result Diagrams 01/29/20 17:30 01/29/20 17:30 Laboratory Results 01/29/20 01/29/20 01/29/20 Range/Units 18:25 18:25 17:30 WBC (4.0-10.5) K/mm3 RBC (4.1-5.4) M/mm3 Hgb (12.0-16.0) gm/dl Hct (35-47) % MCV (78-100) fl MCH (26-32) pg MCHC (32-36) g/dl RDW (11.5-14.0) % Plt Count (150-450) K/mm3 MPV (7.5-11.0) fl Gran % (36.0-66.0) % Eos # (Auto) (0-0.5) Absolute Lymphs (auto) (1.0-4.6) Absolute Monos (auto) (0.0-1.3) Lymphocytes % (24.0-44.0) % Monocytes % (0.0-12.0) % Eosinophils % (0.00-5.0) % Basophils % (0.0-0.4) % Absolute Granulocytes (1.4-6.9) Basophils # (0-0.4) PT (9.95-12.35) SECONDS INR (0.8-3.0) Sodium (137-145) mmol/L Potassium (3.5-5.1) mmol/L Chloride (98-107) mmol/L Carbon Dioxide (22-30) mmol/L Anion Gap (5-15) MEQ/L BUN (7-17) mg/dL Creatinine (0.52-1.04) mg/dL Estimated GFR ML/MIN Glucose (74-106) mg/dL Calcium (8.4-10.2) mg/dL Total Bilirubin (0.2-1.3) mg/dL AST (14-36) U/L ALT (0-35) U/L Alkaline Phosphatase (38-126) U/L Troponin I < 0.012 (0.000-0.034) ng/mL NT-Pro-B Natriuret Pep (0-900) pg/mL Serum Total Protein (6.3-8.2) g/dL Albumin (3.5-5.0) g/dL Urine Color STRAW (YELLOW) Urine Appearance CLEAR (CLEAR) Urine pH 5.0 (5-6) Ur Specific [place] 1.004 (1.005-1.025) Urine Protein NEGATIVE (Negative) Urine Ketones NEGATIVE (NEGATIVE) Urine Blood NEGATIVE (0-5) Dima/ul Urine Nitrite NEGATIVE (NEGATIVE) Urine Bilirubin NEGATIVE (NEGATIVE) Urine Urobilinogen NEGATIVE (0-1) mg/dL Ur Leukocyte Esterase NEGATIVE (NEGATIVE) Urine WBC (Auto) NONE (0-5) /HPF Urine RBC (Auto) 0-2 (0-2) /HPF U Epithel Cells (Auto) NONE (FEW) /HPF Urine Bacteria (Auto) NONE (NEGATIVE) /HPF Urine Culture Reflexed NO (NO) Urine Glucose NEGATIVE (NEGATIVE) mg/dL Urine Opiates Level NEGATIVE (NEGATIVE) Ur Methadone NEGATIVE (NEGATIVE) Urine Barbiturates NEGATIVE (NEGATIVE) Ur Phencyclidine (PCP) NEGATIVE (NEGATIVE) Urine Amphetamine NEGATIVE (NEGATIVE) U Benzodiazepine Level NEGATIVE (NEGATIVE) Urine Cocaine NEGATIVE (NEGATIVE) Urine Marijuana (THC) NEGATIVE (NEGATIVE) 01/29/20 01/29/20 01/29/20 Range/Units 17:30 17:30 17:30 WBC 7.6 (4.0-10.5) K/mm3 RBC 4.50 (4.1-5.4) M/mm3 Hgb 13.5 (12.0-16.0) gm/dl Hct 40.2 (35-47) % MCV 89.3 (78-100) fl MCH 30.0 (26-32) pg MCHC 33.6 (32-36) g/dl RDW 16.2 H (11.5-14.0) % Plt Count 366 (150-450) K/mm3 MPV 9.5 (7.5-11.0) fl Gran % 53.2 (36.0-66.0) % Eos # (Auto) 0.05 (0-0.5) Absolute Lymphs (auto) 2.71 (1.0-4.6) Absolute Monos (auto) 0.75 (0.0-1.3) Lymphocytes % 35.8 (24.0-44.0) % Monocytes % 9.9 (0.0-12.0) % Eosinophils % 0.7 (0.00-5.0) % Basophils % 0.4 (0.0-0.4) % Absolute Granulocytes 4.02 (1.4-6.9) Basophils # 0.03 (0-0.4) PT 11.6 (9.95-12.35) SECONDS INR 1.03 (0.8-3.0) Sodium 141 (137-145) mmol/L Potassium 4.0 (3.5-5.1) mmol/L Chloride 108 H (98-107) mmol/L Carbon Dioxide 23 (22-30) mmol/L Anion Gap 14.1 (5-15) MEQ/L BUN 11 (7-17) mg/dL Creatinine 0.88 (0.52-1.04) mg/dL Estimated GFR > 60.0 ML/MIN Glucose 81 (74-106) mg/dL Calcium 8.9 (8.4-10.2) mg/dL Total Bilirubin 0.20 (0.2-1.3) mg/dL AST 17 (14-36) U/L ALT 11 (0-35) U/L Alkaline Phosphatase 114 (38-126) U/L Troponin I (0.000-0.034) ng/mL NT-Pro-B Natriuret Pep 324 (0-900) pg/mL Serum Total Protein 7.2 (6.3-8.2) g/dL Albumin 3.9 (3.5-5.0) g/dL Urine Color (YELLOW) Urine Appearance (CLEAR) Urine pH (5-6) Ur Specific [place] (1.005-1.025) Urine Protein (Negative) Urine Ketones (NEGATIVE) Urine Blood (0-5) Dima/ul Urine Nitrite (NEGATIVE) Urine Bilirubin (NEGATIVE) Urine Urobilinogen (0-1) mg/dL Ur Leukocyte Esterase (NEGATIVE) Urine WBC (Auto) (0-5) /HPF Urine RBC (Auto) (0-2) /HPF U Epithel Cells (Auto) (FEW) /HPF Urine Bacteria (Auto) (NEGATIVE) /HPF Urine Culture Reflexed (NO) Urine Glucose (NEGATIVE) mg/dL Urine Opiates Level (NEGATIVE) Ur Methadone (NEGATIVE) Urine Barbiturates (NEGATIVE) Ur Phencyclidine (PCP) (NEGATIVE) Urine Amphetamine (NEGATIVE) U Benzodiazepine Level (NEGATIVE) Urine Cocaine (NEGATIVE) Urine Marijuana (THC) (NEGATIVE) - Progress Progress: improved Air Movement: good Progress Note: 01/29/20 20:01 While the patient was down an x-ray getting a CTA of the chest to evaluate her aortic arch repair site, the patient told the radiology supervisor that she was having some pressure and strong pulsations in her abdomen. The patient stated to the radiology supervisor that "like an abdominal aortic aneurysm". Patient then told the radiology supervisor not to tell the doctor. However, the radiology supervisor was being responsible and talk to me about it. Discussed with the patient the need to evaluate her abdominal aorta. This was new symptoms that she just brought up at the time of her CAT scan of the chest. I explained to her the benefits of performing that test and the risk of not performing that test including worsening condition and . Patient does not want to have this CAT scan of her abdomen performed. She wants to go home to take care of her pets. She will sign a refusal of care form. 01/29/20 20:40 CAT scan of the chest with contrast reveals a patent aorta with no evidence of any dissection or leak. No acute abnormalities seen Medical decision making: This patient does not want a CAT scan of her abdomen. Patient has signed the refusal of care and testing. Patient has a normal troponin level. There are no acute abnormalities in her lab work. There are no acute changes on her EKG. Patient will be discharged to home. Blood Culture(s) Obtained: No Antibiotics given: No Counseled pt/family regarding: lab results, diagnosis, need for follow-up, rad results - Departure Departure Disposition: Home Clinical Impression: Chest pain Condition: Stable Critical Care Time: No Referrals: RICO ELLIS [Primary Care Provider] - Additional Instructions: Take your medication as prescribed. Follow-up with your primary care physician for follow-up. Return to the emergency department if symptoms recur/worsen
[2020-01-29] MEDS ORDERED: BABY ASPIRIN 81 MG CHEW PO ONE (18:05)
[2020-01-29 18:33] LABS: Absolute Neutrophil Ct (ANC) 4.02 (1.4-6.9); BASOPHIL % 0.4 % (0.0-0.4); Basophil (Absolute #) 0.03 (0-0.4); Eosinophil % 0.7 % (0.00-5.0); Eosinophil (Absolute #) 0.05 (0-0.5); Hematocrit 40.2 % (35-47); Hemoglobin 13.5 gm/dl (12.0-16.0); Lymphocyte (Absolute #) 2.71 (1.0-4.6); Lymphocytes % 35.8 % (24.0-44.0); Mean Cell Volume 89.3 fl (78-100); Mean Corpuscular Hgb Concent. 33.6 g/dl (32-36); Mean Platelet Volume 9.5 fl (7.5-11.0); Monocyte (Absolute #) 0.75 (0.0-1.3); Monocytes % 9.9 % (0.0-12.0); Neutrophil % 53.2 % (36.0-66.0); Platelet Count 366 K/mm3 (150-450); Red Cell Distribution Width 16.2 % (11.5-14.0); White Blood Count 7.6 K/mm3 (4.0-10.5)
[2020-01-29 18:34] LABS: Appearance CLEAR (CLEAR); Bilirubin NEGATIVE (NEGATIVE); Blood NEGATIVE Ery/ul (0-5); Glucose NEGATIVE (NEGATIVE); Ketones NEGATIVE (NEGATIVE); Leukocyte Esterase NEGATIVE (NEGATIVE); Nitrite NEGATIVE (NEGATIVE); Protein,Urine Dip NEGATIVE (Negative); RBC 0-2 /HPF (0-2); Specific Gravity 1.004 (1.005-1.025); Urobilinogen NEGATIVE mg/dL (0-1)
[2020-01-29 18:45] LABS: INR 1.03 (0.8-3.0); PROTIME 11.6 SECONDS (9.95-12.35)
[2020-01-29 18:50] LABS: Amphetamine,Urine NEGATIVE (NEGATIVE); Barbiturate,Urine NEGATIVE (NEGATIVE); Benzodiazepine,Urine NEGATIVE (NEGATIVE); Cocaine,Urine NEGATIVE (NEGATIVE); Methadone,Urine NEGATIVE (NEGATIVE); Opiate,Urine NEGATIVE (NEGATIVE); PCP,Urine NEGATIVE (NEGATIVE); THC,Urine NEGATIVE (NEGATIVE)
[2020-01-29 19:04] LABS: ALBUMIN 3.9 g/dL (3.5-5.0); ALKALINE PHOSPHATASE 114 U/L (38-126); ANION GAP 14.1 MEQ/L (5-15); BLOOD UREA NITROGEN 11 mg/dL (7-17); CHLORIDE 108 mmol/L (98-107); Calcium 8.9 mg/dL (8.4-10.2); Carbon Dioxide 23 mmol/L (22-30); Creatinine 1 0.88 mg/dL (0.52-1.04); Glucose 81 mg/dL (74-106); NT PRO BNP 324 pg/mL (0-900); SGOT/AST 17 U/L (14-36); SGPT/ALT 11 U/L (0-35); SODIUM 141 mmol/L (137-145); Total Protein 7.2 g/dL (6.3-8.2)
[2020-01-29 20:17] VITALS: O2SAT 98
[2020-01-29 21:46] VITALS: BP 143/51; PULSE 64
--- NOTE | 2020-01-30 08:56 | XRAY ---
Indication: Chest pain. History aortic dissection. Conventional contrast enhanced CTA chest was performed using 80 cc Isovue 370 contrast. Two-dimensional sagittal and coronal reformatted images obtained. Additional 3-dimensional reformatted images obtained using a separate workstation. Comparison: November 06, 2019. Thoracic aorta again demonstrates a patent aortic stent graft in the proximal aortic arch extending distally to the level of the diaphragm. Again no evidence for aneurysm, dissection, or leakage. There is also stable patent left carotid to proximal left brachial artery bypass stent graft with surrounding fluid collection grossly unchanged. Heart is not enlarged. Stable small subcarinal and right perihilar calcified nodes. No pathologic mediastinal/hilar lymphadenopathy. Lungs again demonstrate mild viral dependent atelectasis, mild pulmonary emphysema, and tiny right lower lobe calcified granuloma. No suspicious pulmonary mass, infiltrate, consolidation, or effusion. Bony thorax intact again with mild degenerative changes throughout the spine and old ununited left clavicle fracture. Limited upper abdomen again demonstrates calcified splenic granulomas and previous cholecystectomy. Impression: 1. Stable patent thoracic aorta stent graft without complications. 2. Stable left carotid to left brachial artery bypass graft with grossly stable fluid collection around the bypass graft. 3. Stable bilateral atelectasis, pulmonary emphysema, chronic bony findings, and evidence for old granulomatous disease. 4. No new or acute cardiopulmonary abnormalities.
== END 2020-01-29 21:08 | disposition home or self-care (01) ==
LOC: ED 17:55
DX: R07.9 Chest pain, unspecified (principal); Z72.0 Tobacco use; Z79.899 Other long term (current) drug therapy; J44.9 Chronic obstructive pulmonary disease, unspecified; K21.9 Gastro-esophageal reflux disease without esophagitis; M19.90 Unspecified osteoarthritis, unspecified site; R01.1 Cardiac murmur, unspecified
CPT/HCPCS: 36000; 36415; 71275; 80053; 80307; 81001; 83880; 84484; 85025; 85610; 93005; 93041; 99284; A9270-GY